=== PATIENT | male | born 1950 | race Caucasian/White ===

== ENCOUNTER → 2017-12-20 | Outpatient (CLI) | payer OTHER, BC ==
[2017-12-20 17:31] LABS: BASO % 0.8 %; BASO ABS # 0.08 K/uL (0-0.2); EOS % 2.6 %; EOS ABS # 0.25 K/uL (0-0.5); HEMOGLOBIN 15.8 g/dL (14.0-18.0); IG# 0.01 K/uL (0.00-0.02); LYMPH % 45.9 %; MEAN CELL VOLUME 90.9 fL (80-100); MEAN CORPUSCULAR HEMOGLOBIN 31.9 pg (25-34); MEAN CORPUSCULAR HGB CONC 35.1 g/dl (32-36); MEAN PLATELET VOLUME 11.7 fL (7.4-10.4); MONO % 8.6 %; MONO ABS # 0.82 K/uL (0.11-0.59); NEUT ABS # 4.03 K/uL (1.4-6.5); PLATELET COUNT 326 K/uL (130-400); RED CELL DISTRIBUTION WIDTH CV 13.6 % (11.5-14.5); RED CELL DISTRIBUTION WIDTH SD 45.2 fL (36.4-46.3); WHITE BLOOD COUNT 9.59 K/uL (4.8-10.8)
[2017-12-20 18:23] LABS: GLUCOSE 98 mg/dl (70-99)
[2017-12-20 18:24] LABS: ALBUMIN 3.6 gm/dl (3.4-5.0); ALKALINE PHOSPHATASE 87 U/L (45-117); ALT/SGPT 39 U/L (12-78); AST/SGOT 21 U/L (15-37); BLOOD UREA NITROGEN 13 mg/dl (7-18); CALCIUM 8.3 mg/dl (8.5-10.1); CARBON DIOXIDE 20 mmol/L (21-32); CHOLESTEROL 140 mg/dl (0-200); CREATININE 0.97 mg/dl (0.60-1.40); POTASSIUM 3.8 mmol/L (3.5-5.1); SODIUM 136 mmol/L (136-145); TOTAL PROTEIN 7.1 gm/dl (6.4-8.2)
[2017-12-21 06:28] LABS: HEMOGLOBIN A1C 5.7 % (4.5-5.6)
== END | disposition home or self-care (01) ==
LOC: C.LABPVFM 16:12
PROVIDERS: ATTEND Family Medicine
DX: E78.5 Hyperlipidemia, unspecified (principal); J30.9 Allergic rhinitis, unspecified; I47.1 Supraventricular tachycardia; R73.9 Hyperglycemia, unspecified

== ENCOUNTER 2021-09-11 19:58 | Inpatient (IN) ==
[2021-09-11] MEDS ORDERED: SODIUM CHLORIDE 0.9% 500 ML IV STA (20:21)
--- NOTE | 2021-09-11 20:28 | Emergency Department Note ---
Impression & Plan Hemoptysis, Small cell lung cancer, Pneumonia ED Provider Note NAME: ELINA WATERS AGE: 70 SEX: M : 1950 ARRIVES VIA: Ambulance INFORMANT: Patient, ED PROVIDER(S): Charlie Marte MD Chief Complaint: Coughing up blood HPI: Patient presents due to concern for coughing up blood which she states began abruptly after dinner. Patient states he has had some scant blood-tinged sputum in the past but this seem more eric in nature. The patient does take Xarelto for a known history of A. fib. The patient denies any shortness of breath. The patient does relate that he did have some chest discomfort but p rimarily just with coughing. The patient does not want anything for pain at this time. Patient denies any fevers or chills or abdominal pain. Patient Nuys any vomiting. Patient denies any alcohol use. The patient does use tobacco. Patient denies any leg swelling. Patient states he has had a prior bronchoscopy with Dr. Todd. Patient states he has not had any chemo or radiation or surgical therapy yet. The patient is currently undergoing consultation. ROS: See HPI for pertinent positives and negatives. A total of 10 systems were reviewed and otherwise negative. Past medical history: See below Surgical history: See below Social history: See below Physical Exam: GENERAL: NAD, wearing glasses, wearing a mask, non-toxic. EYE EXAM: Normal conjunctiva. PERRL, no anisocoria and EOM's grossly intact w/o pain. NECK: Supple, no nuchal rigidity, no adenopathy, non-tender. No signs of meningismus. LUNGS: Clear to auscultation. Normal chest wall mechanics. HEART: NSR, no MRG. ABDOMEN: Abdomen soft, non-tender, normo-active bowel sounds, no masses, no rebound or guarding. BACK: No CVA TTP. SKIN: No rashes and no bruising. UPPER EXTREMITIES: Upper extremities are grossly normal. LOWER EXTREMITIES: Grossly normal, no edema. NEURO EXAM: A&O x3, cranial nerves II-XII grossly intact, normal speech, moves all 4 extremities on command w/o issue. Differential diagnoses: Lung cancer, alveolar hemorrhage, bronchitis, reactive airway disease, pneumonia, pneumothorax, COPD, CHF, infections, cardiac ischemia, pulmonary embolism, musculoskeletal, gastrointestinal, as well as other pathologies. Course: Patient was seen and evaluated the bedside. Full history physical exam was pe rformed. EKG interpreted by me Normal sinus rhythm, rate of 92, normal intervals, normal axis, no ST changes or T WI. Imaging Studies: See Below Cardiac monitoring: An order was placed for continuous cardiac monitoring. The monitor shows a rate of 77 with sinus rhythm. MDM: Patient was seen due to concern for eric mopped assist and a known history of small cell carcinoma but without any current treatment. The patient did have bloody sputum within an emesis bag. The patient does take Xarelto for a known history of A. fib. Patient did have bladder completed. Patient also did have a CT angio of the chest. Patient has a white count of 12 with a normal H&H and platelet count. The ivone ent's kidney function is unremarkable with mild hyponatremia. COVID-negative. Type and screen was also ordered. CT angiography was discussed and reviewed with the on-call sales account representative Dr. Chin. He suggested antitussives and if his symptoms were to worsen could consider Kcentra as well as nebulized TXA. He also recommended hematology oncology to see the patient as well. Patient was admitted to the internal medicine service by Dr. Greene. I did order blood cultures Pan Mab as the patient did have a fever 37 9. Patient was also ordered Zosyn. Past Med/Surg History Medical History Allergic rhinitis Arthritis COPD with emphysema Hyperlipemia Paroxysmal atrial fibrillation Perirectal abscess PSVT (paroxysmal supraventricular tachycardia) Skin cancer REMOVED FROM LEFT HAND Small cell lung cancer Surgical History H/O knee surgery LEFT History of colonoscopy History of tooth extraction Hx of tonsillectomy S/P radiofrequency ablation operation for arrhythmia "UNSUCCESSFUL" 10/01/2017 >FOLLOWS WITH [facility] Family History Father Diabetes Cardiac disorder Myocardial infarction Lung cancer Hypertension Mother Ovarian cancer Dementia Grandmother (Paternal) Diabetes Grandfather (Paternal) Diabetes Denies family history of Prostate cancer Breast cancer Colorectal cancer Social History Smoking Status: Current every day smoker Tobacco Type: Cigarettes packs per day: 1; Cigarettes Per Day: 5-6; Second Hand Exposure: No; Hx Alcohol Use: No Hx Substance Use: No Preferred Language: Croatian Communication Ability: Effective Senior Supply Chain Analyst Required: No Beliefs That Will Affect Care: None marital status: Current Living Situation: Alone 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 Feels Safe at Home: Yes caffeine: Yes Dental Care, Regularly: No Physical Activity Frequency: 1-2 Times per Week Seatbelt Use: sometimes Sunscreen Use: Yes Assistive Devices: None Allergies Allergies Allergy/AdvReac Type Severity Reaction Status Date / Time No Known Allergies Allergy Verified 09/11/21 21:31 Home Meds Home Medications Medication Instructions Recorded Confirmed multivitamin 1 tab PO QAM 10/02/19 09/11/21 rivaroxaban 20 mg tablet (Xarelto) 20 mg PO QDD 08/19/21 09/11/21 metoprolol tartrate 100 mg tablet 100 mg PO QPM 09/11/21 09/11/21 metoprolol tartrate 100 mg tablet 150 mg PO QAM 09/11/21 09/11/21 Previous Rx's Medication Instructions Recorded aspirin 81 mg tablet,delayed 81 mg PO DAILY #30 tab 05/25/19 release pravastatin 40 mg tablet 40 mg PO QPM #90 tab 04/12/21 flecainide 100 mg tablet 100 mg PO Q12H #180 tab 07/19/21 Flutter Valve #1 ea 09/08/21 albuterol sulfate 90 mcg/actuation 2 puff INHALATION Q6H PRN #18 g 09/08/21 aerosol inhaler dextromethorphan-guaifenesin 30 1 tab PO Q12H PRN #60 tab 09/08/21 mg-600 mg tablet extended hr (Mucinex DM) fluticasone propionate 50 1 spray INTRANASAL DAILY #9.9 g 09/08/21 mcg/actuation nasal spray,suspension (Allergy Relief (fluticasone)) umeclidinium 62.5 mcg-vilanterol 1 inh INHALATION DAILY #60 ea 09/08/21 25 mcg/actuation powdr for inhalation (Anoro Ellipta) Results & Data (ED) Vital Signs Vital Signs - 24 hr 09/11/21 20:17 09/11/21 20:50 09/11/21 21:00 Temperature 37.9 C H Temperature Source Oral Pulse Rate 92 H 87 Pulse Rate [Apical] 95 H 89 Pulse Rate from SpO2 Sensor Respiratory Rate 24 24 22 Blood Pressure 107/70 104/63 Blood Pressure [Right Arm] 107/70 111/63 Blood Pressure Mean 82 76 Blood Pressure Mean [Right Arm] 82 79 Blood Pressure Position [Right Arm] Semi-fowlers Semi-fowlers Pulse Oximetry 97 96 95 Oxygen Delivery Method Room Air Room Air Room Air Sepsis Recent Fever Within 48 Hours Yes Sepsis New/Unexplained Change in Mental Status No Sepsis Action Taken by Nursing No Action Required 09/11/21 21:50 09/11/21 22:13 09/11/21 22:30 Temperature Temperature Source Pulse Rate 87 122 H Pulse Rate [Apical] 78 Pulse Rate from SpO2 Sensor 121 H Respiratory Rate 18 23 20 Blood Pressure 118/63 120/72 Blood Pressure [Right Arm] 114/54 L Blood Pressure Mean 81 88 Blood Pressure Mean [Right Arm] 74 Blood Pressure Position [Right Arm] Semi-fowlers Pulse Oximetry 95 95 97 Oxygen Delivery Method Room Air Room Air Room Air Sepsis Recent Fever Within 48 Hours Sepsis New/Unexplained Change in Mental Status Sepsis Action Taken by [facility] Medications Current Medication List: was personally reviewed by me Laboratory Data Attestation: I reviewed the patient's lab results. Result diagrams: 09/12/21 06:54 09/12/21 06:54 Lab Results 09/11/21 09/11/21 09/11/21 Range/Units 20:18 20:18 20:18 WBC 12.52 H (4.8-10.8) K/uL RBC 4.62 L (4.7-6.1) M/uL Hgb 14.9 (14.0-18.0) g/dL Hct 42.1 (42-52) % MCV 91.1 (80-100) fL MCH 32.3 (25-34) pg MCHC 35.4 (32-36) g/dL RDW Std Deviation 43.2 (36.4-46.3) fL RDW Coeff of Gagandeep 12.9 (11.5-14.5) % Plt Count 347 (130-400) K/uL MPV 10.6 H (7.4-10.4) fL Immature Gran % (Auto) 0.2 % Neut % (Auto) 65.3 % Lymph % (Auto) 25.3 % [place] % (Auto) 7.8 % Eos % (Auto) 1.2 % Baso % (Auto) 0.2 % Neut # (Auto) 8.17 H (1.4-6.5) K/uL Lymph # (Auto) 3.17 (1.2-3.4) K/uL [place] # (Auto) 0.98 H (0.11-0.59) K/uL Eos # (Auto) 0.15 (0-0.5) K/uL Baso # (Auto) 0.02 (0-0.2) K/uL Immature Gran # (Auto) 0.03 H (0.00-0.02) K/uL PT 11.7 (9.0-12.0) Seconds INR 1.1 (0.9-1.1) APTT 30.0 (21.0-31.0) Seconds PTT Ratio 1.1 Sodium 134 L (136-145) mmol/L Potassium 3.8 (3.5-5.1) mmol/L Chloride 102 (98-107) mmol/L Carbon Dioxide 23 (21-32) mmol/L Anion Gap 9 (3-11) BUN 17 (6-23) mg/dl Creatinine 0.89 (0.6-1.4) mg/dl Est Cr Clr Drug Dosing 83.4 ml/min Est GFR ( Amer) 101.1 ml/min Est GFR (Non-Af Amer) 87.2 ml/min BUN/Creatinine Ratio 19.1 (10-20) Glucose 138 H (70-99(Fasting)) mg/dl Calcium 9.0 (8.5-10.1) mg/dl Magnesium 1.9 (1.7-2.4) mg/dl Total Bilirubin 0.3 (0.2-1.0) mg/dl AST 18 (13-39) U/L ALT 20 (7-52) U/L Alkaline Phosphatase 89 (34-104) U/L Total Protein 6.5 (6.0-8.3) gm/dl Albumin 3.7 (3.4-5.0) gm/dl Globulin 2.8 (2.5-4.0) gm/dl Albumin/Globulin Ratio 1.3 (0.9-2) Procalcitonin (0-0.5) ng/ml SARS-CoV-2, RNA, NAAT (NEGATIVE) Blood Type Antibody Screen 09/11/21 09/11/21 09/11/21 Range/Units 20:20 20:47 22:41 WBC (4.8-10.8) K/uL RBC (4.7-6.1) M/uL Hgb (14.0-18.0) g/dL Hct (42-52) % MCV (80-100) fL MCH (25-34) pg MCHC (32-36) g/dL RDW Std Deviation (36.4-46.3) fL RDW Coeff of Gagandeep (11.5-14.5) % Plt Count (130-400) K/uL MPV (7.4-10.4) fL Immature Gran % (Auto) % Neut % (Auto) % Lymph % (Auto) % [place] % (Auto) % Eos % (Auto) % Baso % (Auto) % Neut # (Auto) (1.4-6.5) K/uL Lymph # (Auto) (1.2-3.4) K/uL [place] # (Auto) (0.11-0.59) K/uL Eos # (Auto) (0-0.5) K/uL Baso # (Auto) (0-0.2) K/uL Immature Gran # (Auto) (0.00-0.02) K/uL PT (9.0-12.0) Seconds INR (0.9-1.1) APTT (21.0-31.0) Seconds PTT Ratio Sodium (136-145) mmol/L Potassium (3.5-5.1) mmol/L Chloride (98-107) mmol/L Carbon Dioxide (21-32) mmol/L Anion Gap (3-11) BUN (6-23) mg/dl Creatinine (0.6-1.4) mg/dl Est Cr Clr Drug Dosing ml/min Est GFR ( Amer) ml/min Est GFR (Non-Af Amer) ml/min BUN/Creatinine Ratio (10-20) Glucose (70-99(Fasting)) mg/dl Calcium (8.5-10.1) mg/dl Magnesium (1.7-2.4) mg/dl Total Bilirubin (0.2-1.0) mg/dl AST (13-39) U/L ALT (7-52) U/L Alkaline Phosphatase (34-104) U/L Total Protein (6.0-8.3) gm/dl Albumin (3.4-5.0) gm/dl Globulin (2.5-4.0) gm/dl Albumin/Globulin Ratio (0.9-2) Procalcitonin 0.12 (0-0.5) ng/ml SARS-CoV-2, RNA, NAAT NEGATIVE (NEGATIVE) Blood Type A Negative Antibody Screen NEGATIVE Administered Medications Benzonatate (Benzonatate 100 Mg Capsule) 100 mg PO TID [facility] Stop: 10/12/21 08:59 Last Admin: 09/12/21 13:11 Dose: 100 mg Documented by: [id number] Admin: 09/12/21 08:18 Dose: 100 mg Documented by: [id number] Flecainide Acetate (Flecainide Acetate 100 Mg Tablet) 100 mg PO Q12H [facility] Stop: 10/12/21 00:29 Last Admin: 09/12/21 11:08 Dose: 100 mg Documented by: [id number] Admin: 09/12/21 00:58 Dose: 100 mg Documented by: [id number] Fluticasone Propionate (Fluticasone Propionate Na Spr 16 Gm Btl) 1 sprays NA DAILY [facility] Stop: 10/12/21 08:59 Last Admin: 09/12/21 08:16 Dose: 1 sprays Documented by: [id number] Guaifenesin/Codeine Phosphate (Guaifenesin/Codeine 100mg/10mg 5ml Udc) 5 ml PO Q6 [facility] Stop: 10/12/21 11:14 Last Admin: 09/12/21 17:42 Dose: 5 ml Documented by: [id number] Admin: 09/12/21 11:50 Dose: 5 ml Documented by: [id number] Piperacillin Sod/Tazobactam (Sod 3.375 gm/ Dextrose) 115 mls @ 28.75 mls/hr IV Q8H [facility]; Protocol Stop: 09/19/21 03:59 Last Infusion: 09/12/21 15:20 Dose: 0 mls/hr Documented by: [id number] Admin: 09/12/21 11:07 Dose: 28.8 mls/hr Documented by: [id number] Infusion: 09/12/21 08:33 Dose: 0 mls/hr Documented by: [id number] Admin: 09/12/21 04:32 Dose: 28.8 mls/hr Documented by: [id number] Metoprolol Tartrate (Metoprolol Tartrate 50 Mg Tab) 150 mg PO QAM [facility] Stop: 10/12/21 08:59 Last Admin: 09/12/21 08:21 Dose: 150 mg Documented by: [id number] Metoprolol Tartrate (Metoprolol Tartrate 100 Mg Tab) 100 mg PO QPM [facility] Stop: 10/12/21 20:59 Last Admin: 09/12/21 00:59 Dose: 100 mg Documented by: [id number] Pravastatin Sodium (Pravastatin Sod 40 Mg Tab) 40 mg PO QPM [facility] Stop: 10/12/21 20:59 Last Admin: 09/12/21 00:59 Dose: 40 mg Documented by: [id number] Umeclidinium/Vilanterol (Umeclidinium/Vilanterol 62.5/25mcg 7 Puffs/Inhaler) 1 puffs INH DAILY [facility] Stop: 10/12/21 08:59 Last Admin: 09/12/21 08:16 Dose: 1 puffs Documented by: [id number] Discontinued Medications Guaifenesin (Guaifenesin 600 Mg Tabcr) 1 mg PO Q12H PRN PRN Reason: cough Last Admin: 09/12/21 08:17 Dose: 1 mg Documented by: [id number] Sodium Chloride (Nss) 500 mls @ 999 mls/hr IV .Q31M ST[facility] Stop: 09/11/21 20:51 Last Infusion: 09/11/21 21:51 Dose: 0 mls/hr Documented by: [id number] Admin: 09/11/21 20:47 Dose: 999 mls/hr Documented by: [id number] Sodium Chloride (Nss 1000ml) 1,000 mls @ 999 mls/hr IV .Q1H1M ONE Stop: 09/11/21 22:47 Last Infusion: 09/11/21 23:12 Dose: 0 mls/hr Documented by: [id number] Admin: 09/11/21 22:01 Dose: 999 mls/hr Documented by: [id number] Acetaminophen (Ofirmev) 1,000 mg in 100 mls @ 400 mls/hr IV NOW STA Stop: 09/11/21 22:01 Last Infusion: 09/11/21 22:30 Dose: 0 mls/hr Documented by: [id number] Admin: 09/11/21 22:00 Dose: 400 mls/hr Documented by: [id number] Sodium Chloride (Nss) 500 mls @ 999 mls/hr IV .Q31M ONE Stop: 09/11/21 22:17 Last Infusion: 09/12/21 00:09 Dose: 0 mls/hr Documented by: [id number] Admin: 09/11/21 23:16 Dose: 999 mls/hr Documented by: [id number] Piperacillin Sod/Tazobactam Sod (Zosyn) 4.5 gm in 120 mls @ 240 mls/hr IV NOW ONE Stop: 09/11/21 22:39 Last Infusion: 09/11/21 23:12 Dose: 0 mls/hr Documented by: [id number] Admin: 09/11/21 22:29 Dose: 240 mls/hr Documented by: [id number] Ioversol (Optiray 320 100ml) 120 ml IV ONCE ONE Stop: 09/11/21 21:24 Last Admin: 09/11/21 21:23 Dose: 120 ml Documented by: [id number] Imaging Data Radiologist's Impression: Chest CTA 09/11/21 20:21 CT ANGIOGRAPHY OF THE CHEST, PULMONARY EMBOLUS PROTOCOL CLINICAL HISTORY: hemoptysis, history of lung cancer. COMPARISON STUDY: Chest CT August 19, 2021. PET/CT September 04, 2021. TECHNIQUE: Following IV administration of 120 mL of Optiray, helical axial images of the chest were obtained utilizing the pulmonary embolus protocol. Maximal intensity projections and sagittal and coronal reformats were viewed on an independent 3D workstation. IV contrast was administered without complication. Automated exposure control was utilized for the study. A dose lowering technique was utilized adhering to the principles of ALARA. CT DOSE: 418.46 mGy.cm FINDINGS: Note is again made of an infiltrative left perihilar/suprahilar mass which measures 6.7 x 6.3 cm. This mass results in marked narrowing of the distal left pulmonary artery as well as the left upper and left lower lobe pulmonary arteries. These vessels are markedly attenuated. There is nonopacification of multiple segmental pulmonary arteries within the left lung, most notably within within the left lower lobe. This is likely due to upstream narrowing/occlusion. Emboli would be difficult to completely exclude. No right-sided pulmonary emboli are present. The mass also results in occlusion of left upper lobe bronchus as well as lingular segmental bronchi. Left upper lobe segmental bronchi are opacified. A small left pleural effusion has developed. Interlobular septal thickening within the left upper lobe is noted. The size the heart is normal. There is no pericardial effusion. No thoracic aortic dissection is present. Mild left lower lobe alveolar opacities are noted. Moderate left upper lobe airspace opacity has increased. A 1.3 cm left upper lobe nodule on image 257 is similar t o prior PET/CT. Right lung is unremarkable. No suspicious lesions within the visualized bony thorax. Visualized portions of the upper abdomen are unremarkable. IMPRESSION: 1. 6.7 x 6.3 cm left hilar/suprahilar infiltrative mass consistent with primary lung malignancy. This mass results in narrowing of the left pulmonary artery and severe narrowing of the left upper lobe and lower lobe pulmonary arteries. Nonopacification of multiple segmental pulmonary arterial branches within the left lung is likely due to vessel stenosis/occlusion with mixing artifact. Although less likely, emboli could appear similar. No right-sided pulmonary emboli. 2. Occlusion of the left upper lobe bronchus. Increase in left upper lobe a irspace opacity which favors post obstructive pneumonia. Although less likely, pulmonary infarct could appear similar. Mild left lower lobe airspace opacities which favor an infectious process. 3. Interval development of a small left pleural effusion. 4. No change in a 1.3 cm left upper lobe nodule which favors a metastasis. ACT 112: Negative or not required by law. Electronically signed by: Stan Link M.D. 09/12/2021 9:19 AM Discharge Plan Visit Data Chief Complaint: Shortness of Breath/Dyspnea Stated Complaint: Coughing Blood ED Provider: Charlie Marte Discharge Problem: Hemoptysis, Small cell lung cancer, Pneumonia Patient Disposition: Admitted As Inpatient Discharge Instructions Interventions: ED Discharge Assessment Last Done: 09/12/21 00:08
[2021-09-11 20:36] LABS: Basophils # (auto) 0.02 K/uL (0-0.2); Basophils % (auto) 0.2 %; Eosinophils # (auto) 0.15 K/uL (0-0.5); Eosinophils % (auto) 1.2 %; Hematocrit (blood only) 42.1 % (42-52); Hemoglobin 14.9 g/dL (14.0-18.0); Immature Granulocytes # (auto) 0.03 K/uL (0.00-0.02); Immature Granulocytes % (auto) 0.2 %; Lymphocytes # (auto) 3.17 K/uL (1.2-3.4); Lymphocytes % (auto) 25.3 %; Mean Corpuscular Hemoglobin 32.3 pg (25-34); Mean Corpuscular Hgb Conc 35.4 g/dL (32-36); Mean Corpuscular Volume 91.1 fL (80-100); Mean Platelet Volume 10.6 fL (7.4-10.4); Monocytes # (auto) 0.98 K/uL (0.11-0.59); Monocytes % (auto) 7.8 %; Neutrophils # (auto) 8.17 K/uL (1.4-6.5); Neutrophils % (auto) 65.3 %; Platelet Count 347 K/uL (130-400); RDW Coefficient of Variation 12.9 % (11.5-14.5); RDW Standard Deviation 43.2 fL (36.4-46.3); Red Blood Count 4.62 M/uL (4.7-6.1); White Blood Count 12.52 K/uL (4.8-10.8)
[2021-09-11 20:51] LABS: INR 1.1 (0.9-1.1); Partial Thromboplastin Ratio 1.1; Prothrombin Time 11.7 Seconds (9.0-12.0)
[2021-09-11 20:59] LABS: Albumin Globulin Ratio 1.3 (0.9-2); Albumin Level 3.7 gm/dl (3.4-5.0); BUN Creatinine Ratio 19.1 (10-20); Bilirubin,Total 0.3 mg/dl (0.2-1.0); Creatinine Clr Calc Pharmacy 83.4 ml/min; Est GFR (African American) 101.1 ml/min; Est GFR (Non-African American) 87.2 ml/min; Globulin 2.8 gm/dl (2.5-4.0); Magnesium 1.9 mg/dl (1.7-2.4); Potassium 3.8 mmol/L (3.5-5.1); Total Protein 6.5 gm/dl (6.0-8.3)
[2021-09-11] MEDS ORDERED: OPTIRAY 320 100ml IV ONE (21:23)
[2021-09-11] MEDS ORDERED: SODIUM CHLORIDE 0.9% 1000ML 1,000 ML IV ONE (21:47)
[2021-09-11] MEDS ORDERED: ACETAMINOPHEN 1,000 MG/100 ML VIAL IV STA (21:47)
[2021-09-11] MEDS ORDERED: SODIUM CHLORIDE 0.9% 500 ML IV ONE (21:47)
[2021-09-11] MEDS ORDERED: PIPERACILLIN/TAZOBACTAM 4.5 GM/120 ML BAG IV ONE (22:10)
[2021-09-11] MEDS ORDERED: PIPERACILL/TAZOBAC CONSULT ACTIVE PRN (22:10)
--- NOTE | 2021-09-11 22:46 | History & Physical Report ---
Date of Service September 11, 2021 Assessment & Plan (1) Hemoptysis: Plan: 70yo male with history of metastatic small cell carcinoma of the lung presenting with hemoptysis. Ddx to include patient's known malignancy, vascular invasion, PE, infection/post-obstructive PNA. Presently with minimal cough. No active hemoptysis witnessed since arrival to ER. Adequate oxygenation on room air. 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 He is scheduled to see Radiation Oncology (Dr. Moore) on 09/27/21 and Oncology (Dr. Miller) on 09/19/21. -Oncology consultation appreciated (3) Paroxysmal atrial fibrillation: Plan: Rate controlled -Continue Flecainide 100mg po BID -Continue Metoprolol -Hold Xarelto in setting of bleed (4) COPD with emphysema: Plan: Adequate oxygenation on room air -Continue Anoro daily, Albuterol PRN -Continue Mucinex DM -Continue Flonase (5) Hyperlipemia: Plan: Chronic -Continue Pravastatin Plan: F/E/N - Heplock. Electrolytes WNL. NPO for now Ppx - SCDs Code - DNR/DNI per discussion with patient Dispo - Admit to medical with telemetry History of Present Illness Chief Complaint: hemoptysis Primary Care Provider: Jessica Gomes MD Jah Avila is a 70yo male with history of COPD, paroxysmal atrial fibrillation on Xarelto anticoagulation and HLP. Patient was seen in the ER on 08/19/21 with complaint of fever. CXR and CT Chest obtained during that visit revealed a 6 x 5.9 cm left hilar mass resulting in severe narrowing/occlusion of the JACKIE bronchi as well as mass effect along the central left pulmonary arteries. Findings suspicious for malignancy. Patient had an MRI of the brain obtained on 08/31/21 which revealed a 3mm enhancing nodule within the left cerebellar hemisphere highly suspicious for a metastatic focus as well as a 4mm nonenhancing nodule in the left lateral ventricle. He was seen by Pulmonary on 09/01/21 ad had EBUS with biopsy performed (results pasted below) which revealed small cell carcinoma of the lung. Patient had a PET Scan performed on 09/04/21 which revealed possible adrenal involvement as well. He was seen again by Pulmonary on 09/08/21 and was started on Anoro, PRN Albuterol as well as Mucinex-DM and Flutter valve for his underlying COPD. Patient presents with complaint of hemoptysis. He has a cough productive for clear sputum with occasional blood tinge. This evening he began to cough more s everely and reports coughing up copious amounts of bright red blood. He thinks he may have coughed up approximately 1 cup of blood. He felt more short of breath than usual and had some chest pain associated with the cough as well. Patient reports poor appetite as well as 10-15# weight loss over the last several weeks. He also reports occasional dizziness and ataxic gait. He denies fever, chills, abdominal pain, nausea, vomiting, diarrhea or constipation. No additional complaints at this time. ER Course: Tylenol, Zosyn, NSS Allergies Allergy/AdvReac Type Severity Reaction Status Date / Time No Known Allergies Allergy Verified 09/11/21 21:31 Home Medications Medication Instructions Recorded Confirmed Type aspirin 81 mg tablet,delayed 81 mg PO DAILY #30 tab 05/25/19 09/11/21 Rx release multivitamin 1 tab PO QAM 10/02/19 09/11/21 History pravastatin 40 mg tablet 40 mg PO QPM #90 tab 04/12/21 09/11/21 Rx flecainide 100 mg tablet 100 mg PO Q12H #180 tab 07/19/21 09/11/21 Rx rivaroxaban 20 mg tablet (Xarelto) 20 mg PO QDD 08/19/21 09/11/21 History Flutter Valve #1 ea 09/08/21 09/08/21 Rx albuterol sulfate 90 mcg/actuation 2 puff INHALATION Q6H PRN #18 g 09/08/21 09/11/21 Rx aerosol inhaler dextromethorphan-guaifenesin 30 1 tab PO Q12H PRN #60 tab 05/13/22 05/16/22 Rx mg-600 mg tablet extended [id number] hr (Mucinex DM) fluticasone propionate 50 1 spray INTRANASAL DAILY #9.9 g 09/08/21 09/11/21 Rx mcg/actuation nasal spray,suspension (Allergy Relief (fluticasone)) umeclidinium 62.5 mcg-vilanterol 1 inh INHALATION DAILY #60 ea 09/08/21 09/11/21 Rx 25 mcg/actuation powdr for inhalation (Anoro Ellipta) metoprolol tartrate 100 mg tablet 100 mg PO QPM 09/11/21 09/11/21 History metoprolol tartrate 100 mg tablet 150 mg PO QAM 09/11/21 09/11/21 History Past Med/Surg History Medical History (Updated 09/11/21 @ 23:37 by Eva Greene DO) Allergic rhinitis Arthritis COPD with emphysema Hyperlipemia Paroxysmal atrial fibrillation Perirectal abscess PSVT (paroxysmal supraventricular tachycardia) Skin cancer REMOVED FROM LEFT HAND Small cell lung cancer Surgical History H/O knee surgery LEFT History of colonoscopy History of tooth extraction Hx of tonsillectomy S/P radiofrequency ablation operation for arrhythmia "UNSUCCESSFUL" 10/01/2017 >FOLLOWS WITH MADISON FERNANDES Family History Father Diabetes Cardiac disorder Myocardial infarction Lung cancer Hypertension Mother Ovarian cancer Dementia Grandmother (Paternal) Diabetes Grandfather (Paternal) Diabetes Denies family history of Prostate cancer Breast cancer Colorectal cancer Social History Smoking Status: Current every day smoker Tobacco Type: Cigarettes packs per day: 1; Cigarettes Per Day: 20 CIG DAILY; Second Hand Exposure: No; Hx Alcohol Use: No Hx Substance Use: No Preferred Language: Irish Wrap Checker Required: No Beliefs That Will Affect Care: None marital status: Current Living Situation: Alone 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 Feels Safe at Home: Yes caffeine: Yes Dental Care, Regularly: No Physical Activity Frequency: 1-2 Times per Week Seatbelt Use: sometimes Sunscreen Use: Yes Assistive Devices: None Review of Systems Review of Systems: All systems reviewed & are unremarkable except as noted in HPI & below Physical Exam Physical Exam: General: patient resting comfortably, NAD, non-toxic in appearance, AA&O x 4 Skin: warm, dry, intact, no rashes or lesions HEENT: NC/AT, PERRL, EOMI, anicteric sclera, conjunctiva without injection, external ear normal to inspection and nontender, nares patent, moist mucus membranes, dentition intact, no oropharyngeal lesions, neck supple, trachea midline, no LAD, no thyromegaly, no JVD Heart: +S1/S2, irregularly irregular, no m/r/g Lungs: equal air entry bilaterally, no rales/rhonchi/wheezes Abd: +BS, soft, NT/ND, no masses/organomegaly/ascites Ext: warm, 2+ pulses in UE/LE bilaterally, no clubbing/cyanosis or edema Neuro: nonfocal, patient AA&O x 4, speech intact, no facial droop, moving all extremities on command with equal strength 5/5 Results & Data Results & Data ([facility]) Vital Signs (Past 12 Hours) Vital Signs Temp Pulse Pulse Resp BP BP Pulse Ox 09/11/21 22:13 78 23 114/54 L 95 09/11/21 21:50 87 18 118/63 95 09/11/21 21:00 87 22 104/63 95 09/11/21 20:50 89 24 111/63 96 09/11/21 20:17 37.9 C H 92 H 95 H 24 107/70 107/70 97 Laboratory Results Laboratory Results WBC 12.52 K/uL (4.8-10.8) H 09/11/21 20:18 RBC 4.62 M/uL (4.7-6.1) L 09/11/21 20:18 Hgb 14.9 g/dL (14.0-18.0) 09/11/21 20:18 Hct 42.1 % (42-52) 09/11/21 20:18 MCV 91.1 fL (80-100) 09/11/21 20:18 MCH 32.3 pg (25-34) 09/11/21 20:18 MCHC 35.4 g/dL (32-36) 09/11/21 20:18 RDW Std Deviation 43.2 fL (36.4-46.3) 09/11/21 20:18 RDW Coeff of Gagandeep 12.9 % (11.5-14.5) 09/11/21 20:18 Plt Count 347 K/uL (130-400) 09/11/21 20:18 MPV 10.6 fL (7.4-10.4) H 09/11/21 20:18 Immature Gran % (Auto) 0.2 % 09/11/21 20:18 Neut % (Auto) 65.3 % 09/11/21 20:18 Lymph % (Auto) 25.3 % 09/11/21 20:18 [place] % (Auto) 7.8 % 09/11/21 20:18 Eos % (Auto) 1.2 % 09/11/21 20:18 Baso % (Auto) 0.2 % 09/11/21 20:18 Neut # (Auto) 8.17 K/uL (1.4-6.5) H 09/11/21 20:18 Lymph # (Auto) 3.17 K/uL (1.2-3.4) 09/11/21 20:18 [place] # (Auto) 0.98 K/uL (0.11-0.59) H 09/11/21 20:18 Eos # (Auto) 0.15 K/uL (0-0.5) 09/11/21 20:18 Baso # (Auto) 0.02 K/uL (0-0.2) 09/11/21 20:18 Immature Gran # (Auto) 0.03 K/uL (0.00-0.02) H 09/11/21 20:18 PT 11.7 Seconds (9.0-12.0) 09/11/21 20:18 INR 1.1 (0.9-1.1) 09/11/21 20:18 APTT 30.0 Seconds (21.0-31.0) 09/11/21 20:18 PTT Ratio 1.1 09/11/21 20:18 Sodium 134 mmol/L (136-145) L 09/11/21 20:18 Potassium 3.8 mmol/L (3.5-5.1) 09/11/21 20:18 Chloride 102 mmol/L (98-107) 09/11/21 20:18 Carbon Dioxide 23 mmol/L (21-32) 09/11/21 20:18 Anion Gap 9 (3-11) 09/11/21 20:18 BUN 17 mg/dl (6-23) 09/11/21 20:18 Creatinine 0.89 mg/dl (0.6-1.4) 09/11/21 20:18 Est Cr Clr Drug Dosing 83.4 ml/min 09/11/21 20:18 Est GFR ( Amer) 101.1 ml/min 09/11/21 20:18 Est GFR (Non-Af Amer) 87.2 ml/min 09/11/21 20:18 BUN/Creatinine Ratio 19.1 (10-20) 09/11/21 20:18 Glucose 138 mg/dl (70-99(Fasting)) H 09/11/21 20:18 Calcium 9.0 mg/dl (8.5-10.1) 09/11/21 20:18 Magnesium 1.9 mg/dl (1.7-2.4) 09/11/21 20:18 Total Bilirubin 0.3 mg/dl (0.2-1.0) 09/11/21 20:18 AST 18 U/L (13-39) 09/11/21 20:18 ALT 20 U/L (7-52) 09/11/21 20:18 Alkaline Phosphatase 89 U/L (34-104) 09/11/21 20:18 Total Protein 6.5 gm/dl (6.0-8.3) 09/11/21 20:18 Albumin 3.7 gm/dl (3.4-5.0) 09/11/21 20:18 Globulin 2.8 gm/dl (2.5-4.0) 09/11/21 20:18 Albumin/Globulin Ratio 1.3 (0.9-2) 09/11/21 20:18 SARS-CoV-2, RNA, NAAT NEGATIVE (NEGATIVE) 09/11/21 20:20 Blood Type A Negative 09/11/21 20:47 Antibody Screen NEGATIVE 09/11/21 20:47 Diagnostic Findings Procedure Note: Bronchoscopy 09/01/21 Procedure PREOPERATIVE DIAGNOSIS: Mediastinal mass POSTOPERATIVE DIAGNOSIS: Left upper lobe endobronchial mediastinal mass. Probable small cell lung cancer PROCEDURE PERFORMED: Flexible fiberoptic bronchoscopy with bronchoalveolar lavage, transbronchial biopsies, endobronchial biopsies and EBUS COMPLICATIONS: None. INDICATION: Rule out malignancy PROCEDURE: After obtaining an informed consent, the patient was brought to the Bronchoscopy Suite. The patient had appropriate oxygen, blood pressure, heart rate, and respiratory rate monitoring applied and monitored continuously throughout the procedure. Supplemental oxygen via nasal cannula as per nursing records was applied to the nasopharynx with adequate saturations achieved. Topical anesthesia with nebulized 1% lidocaine was achieved. Subsequent to this, the patient was premedicated with 8 mg of midazolam and 175 mcg of fentanyl. Upper Airway: The oropharynx and larynx were well visualized and showed normal mucosa. There was normal vocal cord motion without masses or lesions. Additional topical anesthesia with 1% lidocaine was applied to the trachea and malia. The trachea appeared normal and sharp bronchoscope was then advanced through the malia, which was sharp. The scope was then advanced into the right main stem and each segment, subsegement in the right upper lobe, right middle lobe and right lower lobe were visualized. There were minimal amount of clear secretion which were suctioned out. There were no other findings including evidence of mass, anatomic distortions, or hemorrhage. The bronchoscope was subsequently withdrawn and advanced into the left mainstem.Mucosa of the left main bronchus seemed edematous with gradual narrowing of the left upper lobe appreciated. There was significant edema as well as ulceration at the entrance of the left upper lobe. It was difficult to pass the scope distally in the left upper lobe. Left lower lobe segment and subsegment were visualized. There were minimal amount of clear secretion which was suctioned out The bronchoscope was then wedged in the left upper lobe and bronchoalveolar lavage samples were obtained. 80 ml of saline was instilled and 30 ml of fluid was aspirated back.The bronchoscope was withdrawn and the area was suctioned clear. The bronchoscope was then re-advanced into the left upper lobe and multiple transbronchial biopsies were taken. Multiple endobronchial biopsies were also taken needed left main and uptake of the left upper lobe. Minimal hemorrhage was identified and suctioned clear without difficulty. Cold saline was utilized to achieve adequate hemostasis. The bronchoscope was then withdrawn to the mainstem. The area was suctioned clear. Flexible bronchoscope was withdrawn and EBUS was introduced Station 7, station 4R, station 4L, station 10 L were screened. None of the stations other than 10 L were deemed appropriate for biopsy Station 10 L seem to be encased around the mass with no clear demarcation 10 L/mass: 5 passes were made with multiple sweeps. DAMIEN probable small cell The patient tolerated the procedure well without evidence of desaturation or complications. Bronchoalveolar lavage samples were sent for cell count, Gram stain and bacter ial culture, AFB culture and smear, fungal culture and smear and cytology. Transbronchial biopsies were sent for and pathology. Biopsy results: JACKIE - small cell carcinoma Lymph node - Small cell carcinoma Code Status & VTE Plan VTE Prophylaxis Plan VTE Prophylaxis will be ordered: Yes PG Care Time/CCT Total # of Minutes Spent Total Time Spent with Patient: Total time spent is greater than 50% in coordination of care (as documented) at patient's floor/unit and/or counseling patient: Coding Level of Care Code 44439 Initial Inpt Care Lvl 3 Diagnoses Paroxysmal atrial fibrillation I48.0 COPD with emphysema J43.9 Small cell lung cancer C34.90 Hemoptysis R04.2 Hyperlipemia E78.5
[2021-09-12] MEDS ORDERED: PIPERACILL/TAZOBAC CONSULT ACTIVE PRN (00:08)
[2021-09-12] MEDS ORDERED: ALBUTEROL HFA 8 GM INHALER INH PRN (00:08)
[2021-09-12] MEDS ORDERED: ONDANSETRON INJ 2 MG/ML 2 ML VIAL IV PRN (00:08)
[2021-09-12] MEDS ORDERED: guaiFENesin 600 MG TABCR PO PRN (00:08)
[2021-09-12] MEDS: FLECAINIDE ACETATE 100 MG TABLET PO SCH ×3 (00:58→22:10)
[2021-09-12] MEDS: PRAVASTATIN SOD 40 MG TAB PO SCH ×2 (00:59→20:03)
[2021-09-12] MEDS: METOPROLOL TARTRATE 100 MG TAB PO SCH ×2 (00:59→20:04)
[2021-09-12] MEDS: PIPERACILLIN/TAZOBACTAM 3.375 GM in DEXTROSE 5% 100 ML IV SCH ×3 (04:32→19:51)
[2021-09-12 07:55] LABS: Basophils # (auto) 0.03 K/uL (0-0.2); Basophils % (auto) 0.3 %; Eosinophils # (auto) 0.15 K/uL (0-0.5); Eosinophils % (auto) 1.5 %; Hematocrit (blood only) 38.7 % (42-52); Hemoglobin 13.4 g/dL (14.0-18.0); Immature Granulocytes # (auto) 0.02 K/uL (0.00-0.02); Immature Granulocytes % (auto) 0.2 %; Lymphocytes # (auto) 2.47 K/uL (1.2-3.4); Lymphocytes % (auto) 24.1 %; Mean Corpuscular Hemoglobin 31.9 pg (25-34); Mean Corpuscular Hgb Conc 34.6 g/dL (32-36); Mean Corpuscular Volume 92.1 fL (80-100); Mean Platelet Volume 10.5 fL (7.4-10.4); Monocytes # (auto) 1.08 K/uL (0.11-0.59); Monocytes % (auto) 10.6 %; Neutrophils # (auto) 6.48 K/uL (1.4-6.5); Neutrophils % (auto) 63.3 %; Platelet Count 292 K/uL (130-400); RDW Coefficient of Variation 13.1 % (11.5-14.5); RDW Standard Deviation 44.1 fL (36.4-46.3); White Blood Count 10.23 K/uL (4.8-10.8)
--- NOTE | 2021-09-12 08:03 | Radiation OncologyConsultation ---
Date of Consultation September 12, 2021 Assessment & Plan (1) Small cell lung cancer in adult: Assessment: Mr. Avila is a 70-year-old gentleman who presents with newly diagnosed extensive stage small cell lung carcinoma. 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 The patient was scheduled to be seen by radiation oncology and medical oncology in the outpatient setting however he was admitted to the [facility] due to hemoptysis which has since improved. I am now seeing the patient in consultation to discuss the role of radiation therapy. Recommendations: 1. With respect to the brain metastasis, I have spoken with Dr. Miller. The patient has very limited disease at this point. I believe it is appropriate for the patient to proceed with observation from a radiation therapy standpoint and proceed with systemic chemotherapy. The patient should have restaging MRI of the brain with and without contrast to be completed after 1-2 cycles of chemotherapy. If the patient has no progression of disease but does have persistent disease, stereotactic radiosurgery can be considered. If the patient has progression of disease, the patient should be considered for whole brain r adiation therapy. 2. With respect to the thoracic disease, the patient will receive systemic chemotherapy. If the patient does have progression of disease involving the chest and is symptomatic, the patient can be considered for short course of palliative external beam radiation therapy. Plan: 1. No plan for radiation therapy at this time. 2. Medical oncology input appreciated. Plan for systemic chemotherapy. 3. Continue care as per primary hospital team. 4. Call us if any questions or concerns. History of Present Illness Attending Physician: Patricio Martin MD History of Present Illness 08/19/2021. CXR. IMPRESSION: Abnormal left suprahilar density measuring 2.3 cm. Follow-up contrast-enhanced chest CT is recommended to exclude the possibility of a mass or lymphadenopathy. 08/19/2021. CT Chest. IMPRESSION: 1. There is a 6.0 x 5.9 cm left hilar mass/lymphadenopathy resulting in severe narrowing/occlusion of the left upper lobe bronchi as well as significant mass effect along the central left pulmonary arteries. This is highly suspicious for a primary bronchogenic malignancy. Bronchoscopy recommended for further evaluation. 2. Interlobular septal thickening within the left upper lobe with a few irregular densities. This may be due to be due to the postobstructive change. Lymphangitic spread of tumor could also have a similar appearance. 3. There is a 12 mm irregular nodule within the left lung apex likely representing a metastatic focus. 4. Mild emphysema 08/31/2021. MRI Brain. IMPRESSION: 1. A 3 mm enhancing nodule within the left cerebellar hemisphere. This is highly suspicious for a metastatic focus. 2. There is a 4 mm nonenhancing nodule within the left lateral ventricle. This is indeterminate but bears watching on future examinations. 09/01/2021. Bronchoscopy and EBUS FNA by Dr. Thomas. Biopsies including station 10L positive for small cell lung carcinoma. 09/04/2021. PET/CT. IMPRESSION: 1. There is a markedly enlarged an infiltrative left perihilar/suprahilar mass lesion as detailed above. The appearance is typical for a primary bronchogenic neoplasm. 2. An FDG avid satellite nodule is seen in the left upper lobe and there are FDG avid prevascular lymph nodes. 3. There are bilateral FDG avid adrenal nodules which measure up to 1.3 cm. These are pathologically indeterminant, and metastatic lesions are not excluded. 4. Mild patchy opacities in the peripheral left upper lobe show faint FDG uptake. This likely represents a postobstructive/inflammatory process. 5. Emphysema. 6. Additional findings as above. 09/11/2021. Patient presents to emergency room with hemoptysis which has improved since admission. Allergies Allergy/AdvReac Type Severity Reaction Status Date / Time No Known Allergies Allergy Verified 09/11/21 21:31 Home Medications Medication Instructions Recorded Confirmed Type aspirin 81 mg tablet,delayed 81 mg PO DAILY #30 tab 05/25/19 09/11/21 Rx release multivitamin 1 tab PO QAM 10/02/19 09/11/21 History pravastatin 40 mg tablet 40 mg PO QPM #90 tab 04/12/21 09/11/21 Rx flecainide 100 mg tablet 100 mg PO Q12H #180 tab 07/19/21 09/11/21 Rx rivaroxaban 20 mg tablet (Xarelto) 20 mg PO QDD 08/19/21 09/11/21 History Flutter Valve #1 ea 09/08/21 09/08/21 Rx albuterol sulfate 90 mcg/actuation 2 puff INHALATION Q6H PRN #18 g 09/08/21 09/11/21 Rx aerosol inhaler dextromethorphan-guaifenesin 30 1 tab PO Q12H PRN #60 tab 09/08/21 09/11/21 Rx mg-600 mg tablet extended [id number] hr (Mucinex DM) fluticasone propionate 50 1 spray INTRANASAL DAILY #9.9 g 09/08/21 09/11/21 Rx mcg/actuation nasal spray,suspension (Allergy Relief (fluticasone)) umeclidinium 62.5 mcg-vilanterol 1 inh INHALATION DAILY #60 ea 09/08/21 09/11/21 Rx 25 mcg/actuation powdr for inhalation (Anoro Ellipta) metoprolol tartrate 100 mg tablet 100 mg PO QPM 09/11/21 09/11/21 History metoprolol tartrate 100 mg tablet 150 mg PO QAM 09/11/21 09/11/21 History Patient History Medical History (Updated 09/12/21 @ 09:47 by Davonte Camejo) Allergic rhinitis Arthritis COPD with emphysema Hyperlipemia Paroxysmal atrial fibrillation Perirectal abscess PSVT (paroxysmal supraventricular tachycardia) Skin cancer REMOVED FROM LEFT HAND Small cell lung cancer Surgical History H/O knee surgery LEFT History of colonoscopy History of tooth extraction Hx of tonsillectomy S/P radiofrequency ablation operation for arrhythmia "UNSUCCESSFUL" 10/01/2017 >FOLLOWS WITH MADISON FERNANDES Family History Father Diabetes Cardiac disorder Myocardial infarction Lung cancer Hypertension Mother Ovarian cancer Dementia Grandmother (Paternal) Diabetes Grandfather (Paternal) Diabetes Denies family history of Prostate cancer Breast cancer Colorectal cancer Social History Smoking Status: Current every day smoker Tobacco Type: Cigarettes packs per day: 1; Cigarettes Per Day: 5-6; Second Hand Exposure: No; Hx Alcohol Use: No Hx Substance Use: No Preferred Language: Romanian Communication Ability: Effective Group Fitness Manager Required: No Beliefs That Will Affect Care: None marital status: Current Living Situation: Alone 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 Otherwise unremarkable Physical Exam Constitutional: WD/WN, vitals as above Skin: no rashes, warm and dry Psychiatric: A+Ox3, euthymic affect Time Spent Attending I spent 15 minutes in preparation for this consultation including reviewing all the clinical records, reviewing laboratory studies, pathology reports and imaging results. I spent 25 minutes with direct face to face interaction with the patient and/or family including performing a physical exam and answering all questions. I spent 20 minutes documenting this patient's visit. I spent 10 minutes speaking with the following providers regarding this patient's care: Dr. Miller and Dr. Adamson.
[2021-09-12 08:14] LABS: BUN Creatinine Ratio 18.3 (10-20); Calcium 8.5 mg/dl (8.5-10.1); Creatinine Clr Calc Pharmacy 90.6 ml/min; Est GFR (African American) 104.6 ml/min; Est GFR (Non-African American) 90.2 ml/min; Potassium 3.8 mmol/L (3.5-5.1)
[2021-09-12] MEDS: UMECLIDINIUM/VILANTEROL 62.5/25MCG 7 PUFFS/INHALER INH SCH (08:16)
[2021-09-12] MEDS: FLUTICASONE PROPIONATE NA SPR 16 GM BTL SCH (08:16)
[2021-09-12] MEDS: BENZONATATE 100 MG CAPSULE PO SCH ×3 (08:18→20:04)
[2021-09-12] MEDS: METOPROLOL TARTRATE 50 MG TAB PO SCH (08:21)
--- NOTE | 2021-09-12 08:41 | Medical Student Progress Note ---
Date of Service September 12, 2021 Assessment & Plan (1) Hemoptysis: Plan: Mr. 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 He has had a few recurrent episodes of hemoptysis since arrival at ED. Was started on Zosyn empirically. -Likely related to his SSC dx -CTA with evidence of artery impingement by lung mass -normal coagulation studies, ~normal Hg 13.4 -patient to start chemotherapy regimen during hospital stay per heme-onc , awaiting official recommendations -CBC qAM Pulmonology consult appreciated: -deescalate Zosyn to Augmentin for pneumonia, see below -Guaifenesin/codeine to suppress cough -continue to hold ASA and Xarelto (2) Abnormal chest CT: Plan: -Post obstructive PNA more likley than COPD exacerbation -O2 sat 96% on RA -CTA with evidence of occlusion of left upper lobe bronchus and increase in airspace opacity -negative procal -WBC 10.2 down from 12.5 on admission -blood cultures pending -deescalate from Zosyn to Augmentin per Pulm (3) Small cell lung cancer: Plan: Patient with newly diagnosed small cell lung cancer with metastatic lesions to brain and possibly adrenals -Oncology consultation appreciated -patient to start chemotherapy regimen during hospital stay, awaiting official recs -Brain radiation following systemic chemotherapy as an outpatient (4) Paroxysmal atrial fibrillation: Plan: -Continue Flecainide 100mg po BID -Continue Metoprolol -continue to hold Xarelto in setting of hemoptysis (5) COPD with emphysema: Plan: expiratory wheezing on exam. O2 96% on RA -Continue Anoro daily, Albuterol PRN -Continue Mucinex DM -Continue Flonase (6) Hyperlipemia: Plan: Chronic -Continue Pravastatin (7) Hyponatremia: Plan: 134 on admission. 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 Dr. Nell Reis. In agreement with the documented findings as noted in the resident documentation with any exceptions or additions as noted here. Patient reports controlled cough on codeine containing cough syrup with improved but not resolved hemoptysis. ROS as noted. On examination, S1/S2 nl RRR no MCG. Coarse breath sounds diffusely with some end exp. wheeze. Abd NT/ND BS+ve VSS reviewed Data: Hgb 13.4 Hemoptysis in the setting of SCLC - pulmonology, oncology consult - holding ASA, Xarelto. Oncology considering urgent chemotherapy cycle with impingement of juan antonio or on vasculature. SCLC with abnormal chest CT - pulmonology consultation - continue pip/tazo, follow up cultures. Negative procal on admission Paroxysmal AF - continue metoprolol, flecanide. Holding Xarelto as above COPD w/ emphyzema without acute exacerbation - continue inhaled medications, cough modifications as above Else see resident documentation as noted. Subjective Mr. Avila is doing well this morning. He has had a few recurrent hemoptysis episodes. He still has ongoing productive blood tinged cough. Otherwise doing well. Denies fevers, chills, night sweats, nausea, vomiting, chest pain. Review of Systems Constitutional: no fever, no chills and no sweats Respiratory: as per Subjective / HPI, + cough, + dyspnea, + hemoptysis and + sputum production Cardiovascular: no chest pain and no chest pain at rest Gastrointestinal: no abdominal pain, no nausea, no vomiting, no constipation and no diarrhea/loose stools Neurologic: no tingling, no numbness and no paresthesia Physical Exam Constitutional: WD/WN, vitals as above no acute distress Respiratory: normal respiratory effort and + cough; no labored breathing Auscultation: + wheezes (expiratoy ); no crackles, no rales and no rhonchi Cardiovascular: RRR, no murmur, no edema Gastrointestinal (Abdomen): normal bowel sounds, soft, nontender, no hepatosplenomegaly Psychiatric: A+Ox3, euthymic affect Results & Data ([facility]) Vital Signs (Past 12 Hours) Vital Signs Temp Pulse Pulse Resp BP BP Pulse Ox 09/12/21 06:27 37.3 C 74 18 95/64 L 96 09/12/21 02:44 37.0 C 64 18 112/64 96 09/12/21 00:53 72 09/12/21 00:08 37.1 C 79 18 114/63 96 09/11/21 22:30 122 H 20 120/72 97 09/11/21 22:13 78 23 114/54 L 95 09/11/21 21:50 87 18 118/63 95 09/11/21 21:00 87 22 104/63 95 09/11/21 20:50 89 24 111/63 96 Laboratory Results Laboratory Results WBC 10.23 K/uL (4.8-10.8) 09/12/21 06:54 RBC 4.20 M/uL (4.7-6.1) L 09/12/21 06:54 Hgb 13.4 g/dL (14.0-18.0) L 09/12/21 06:54 Hct 38.7 % (42-52) L 09/12/21 06:54 MCV 92.1 fL (80-100) 09/12/21 06:54 MCH 31.9 pg (25-34) 09/12/21 06:54 MCHC 34.6 g/dL (32-36) 09/12/21 06:54 RDW Std Deviation 44.1 fL (36.4-46.3) 09/12/21 06:54 RDW Coeff of Gagandeep 13.1 % (11.5-14.5) 09/12/21 06:54 Plt Count 292 K/uL (130-400) 09/12/21 06:54 MPV 10.5 fL (7.4-10.4) H 09/12/21 06:54 Immature Gran % (Auto) 0.2 % 09/12/21 06:54 Neut % (Auto) 63.3 % 09/12/21 06:54 Lymph % (Auto) 24.1 % 09/12/21 06:54 Loíza % (Auto) 10.6 % 09/12/21 06:54 Eos % (Auto) 1.5 % 09/12/21 06:54 Baso % (Auto) 0.3 % 09/12/21 06:54 Neut # (Auto) 6.48 K/uL (1.4-6.5) 09/12/21 06:54 Lymph # (Auto) 2.47 K/uL (1.2-3.4) 09/12/21 06:54 Loíza # (Auto) 1.08 K/uL (0.11-0.59) H 09/12/21 06:54 Eos # (Auto) 0.15 K/uL (0-0.5) 09/12/21 06:54 Baso # (Auto) 0.03 K/uL (0-0.2) 09/12/21 06:54 Immature Gran # (Auto) 0.02 K/uL (0.00-0.02) 09/12/21 06:54 PT 11.7 Seconds (9.0-12.0) 09/11/21 20:18 INR 1.1 (0.9-1.1) 09/11/21 20:18 APTT 30.0 Seconds (21.0-31.0) 09/11/21 20:18 PTT Ratio 1.1 09/11/21 20:18 Sodium 134 mmol/L (136-145) L 09/12/21 06:54 Potassium 3.8 mmol/L (3.5-5.1) 09/12/21 06:54 Chloride 105 mmol/L (98-107) 09/12/21 06:54 Carbon Dioxide 23 mmol/L (21-32) 09/12/21 06:54 Anion Gap 6 (3-11) 09/12/21 06:54 BUN 15 mg/dl (6-23) 09/12/21 06:54 Creatinine 0.82 mg/dl (0.6-1.4) 09/12/21 06:54 Est Cr Clr Drug Dosing 90.6 ml/min 09/12/21 06:54 Est GFR ( Amer) 104.6 ml/min 09/12/21 06:54 Est GFR (Non-Af Amer) 90.2 ml/min 09/12/21 06:54 BUN/Creatinine Ratio 18.3 (10-20) 09/12/21 06:54 Glucose 96 mg/dl (70-99(Fasting)) 09/12/21 06:54 Calcium 8.5 mg/dl (8.5-10.1) 09/12/21 06:54 Magnesium 1.9 mg/dl (1.7-2.4) 09/11/21 20:18 Total Bilirubin 0.3 mg/dl (0.2-1.0) 09/11/21 20:18 AST 18 U/L (13-39) 09/11/21 20:18 ALT 20 U/L (7-52) 09/11/21 20:18 Alkaline Phosphatase 89 U/L (34-104) 09/11/21 20:18 Total Protein 6.5 gm/dl (6.0-8.3) 09/11/21 20:18 Albumin 3.7 gm/dl (3.4-5.0) 09/11/21 20:18 Globulin 2.8 gm/dl (2.5-4.0) 09/11/21 20:18 Albumin/Globulin Ratio 1.3 (0.9-2) 09/11/21 20:18 Procalcitonin 0.12 ng/ml (0-0.5) 09/11/21 22:41 SARS-CoV-2, RNA, NAAT NEGATIVE (NEGATIVE) 09/11/21 20:20 Blood Type A Negative 09/11/21 20:47 Antibody Screen NEGATIVE 09/11/21 20:47 Impressions Chest CTA 09/11/21 20:21 CT ANGIOGRAPHY OF THE CHEST, PULMONARY EMBOLUS PROTOCOL CLINICAL HISTORY: hemoptysis, history of lung cancer. COMPARISON STUDY: Chest CT August 19, 2021. PET/CT September 04, 2021. TECHNIQUE: Following IV administration of 120 mL of Optiray, helical axial images of the chest were obtained utilizing the pulmonary embolus protocol. Maximal intensity projections and sagittal and coronal reformats were viewed on an independent 3D workstation. IV contrast was administered without complication. Automated exposure control was utilized for the study. A dose lowering technique was utilized adhering to the principles of ALARA. CT DOSE: 418.46 mGy.cm FINDINGS: Note is again made of an infiltrative left perihilar/suprahilar mass which measures 6.7 x 6.3 cm. This mass results in marked narrowing of the distal left pulmonary artery as well as the left upper and left lower lobe pulmonary arteries. These vessels are markedly attenuated. There is nonopacification of multiple segmental pulmonary arteries within the left lung, most notably within within the left lower lobe. This is likely due to upstream narrowing/occlusion. Emboli would be difficult to completely exclude. No right-sided pulmonary emboli are present. The mass also results in occlusion of left upper lobe bronchus as well as lingular segmental bronchi. Left upper lobe segmental bronchi are opacified. A small left pleural effusion has developed. Interlobular septal thickening within the left upper lobe is noted. The size the heart is normal. There is no pericardial effusion. No thoracic aortic dissection is present. Mild left lower lobe alveolar opacities are noted. Moderate left upper lobe airspace opacity has increased. A 1.3 cm left upper lobe nodule on image 257 is similar to prior PET/CT. Right lung is unremarkable. No suspicious lesions within the visualized bony thorax. Visualized portions of the upper abdomen are unremarkable. IMPRESSION: 1. 6.7 x 6.3 cm left hilar/suprahilar infiltrative mass consistent with primary lung malignancy. This mass results in narrowing of the left pulmonary artery and severe narrowing of the left upper lobe and lower lobe pulmonary arteries. Nonopacification of multiple segmental pulmonary arterial branches within the left lung is likely due to vessel stenosis/occlusion with mixing artifact. Although less likely, emboli could appear similar. No right-sided pulmonary emboli. 2. Occlusion of the left upper lobe bronchus. Increase in left upper lobe airspace opacity which favors post obstructive pneumonia. Although less likely, pulmonary infarct could appear similar. Mild left lower lobe airspace opacities which favor an infectious process. 3. Interval development of a small left pleural effusion. 4. No change in a 1.3 cm left upper lobe nodule which favors a metastasis. ACT 112: Negative or not required by law. Electronically signed by: Stan Link M.D. 09/12/2021 9:19 AM Medications Administered Current Medications Acetaminophen (Acetaminophen 325 Mg Tab) 650 mg PO Q4H PRN PRN Reason: pain/fever Stop: 10/12/21 00:07 Albuterol (Albuterol Hfa 8 Gm Inhaler) 2 puffs INH Q6H PRN PRN Reason: Shortness Of Breath Or Wheezing Stop: 10/12/21 00:07 Benzonatate (Benzonatate 100 Mg Capsule) 100 mg PO TID [facility] Stop: 10/12/21 08:59 Last Admin: 09/12/21 08:18 Dose: 100 mg Documented by: Flecainide Acetate (Flecainide Acetate 100 Mg Tablet) 100 mg PO Q12H [facility] Stop: 10/12/21 00:29 Last Admin: 09/12/21 11:08 Dose: 100 mg Documented by: Fluticasone Propionate (Fluticasone Propionate Na Spr 16 Gm Btl) 1 sprays NA DAILY [facility] Stop: 10/12/21 08:59 Last Admin: 09/12/21 08:16 Dose: 1 sprays Documented by: Guaifenesin (Guaifenesin 600 Mg Tabcr) 600 mg PO Q12H PRN PRN Reason: cough Stop: 10/12/21 09:03 Guaifenesin/Codeine Phosphate (Guaifenesin/Codeine 100mg/10mg 5ml Udc) 5 ml PO Q6 [facility] Stop: 10/12/21 11:14 Piperacillin Sod/Tazobactam (Sod 3.375 gm/ Dextrose) 115 mls @ 28.75 mls/hr IV Q8H [facility]; Protocol Stop: 09/19/21 03:59 Last Admin: 09/12/21 11:07 Dose: 28.8 mls/hr Documented by: Metoprolol Tartrate (Metoprolol Tartrate 50 Mg Tab) 150 mg PO QAM [facility] Stop: 10/12/21 08:59 Last Admin: 09/12/21 08:21 Dose: 150 mg Documented by: Metoprolol Tartrate (Metoprolol Tartrate 100 Mg Tab) 100 mg PO QPM [facility] Stop: 10/12/21 20:59 Last Admin: 09/12/21 00:59 Dose: 100 mg Documented by: Miscellaneous Information (Piperacill/Tazobac Consult Active) 1 ea N/A UD PRN PRN Reason: Consult Stop: 10/12/21 00:07 Ondansetron HCl (Ondansetron Inj 2 Mg/Ml 2 Ml Vial) 4 mg IV Q6H PRN PRN Reason: Nausea Stop: 10/12/21 00:07 Pravastatin Sodium (Pravastatin Sod 40 Mg Tab) 40 mg PO QPM [facility] Stop: 10/12/21 20:59 Last Admin: 09/12/21 00:59 Dose: 40 mg Documented by: Umeclidinium/Vilanterol (Umeclidinium/Vilanterol 62.5/25mcg 7 Puffs/Inhaler) 1 puffs INH DAILY [facility] Stop: 10/12/21 08:59 Last Admin: 09/12/21 08:16 Dose: 1 puffs Documented by:
--- NOTE | 2021-09-12 09:20 | CT Scan Report ---
CT ANGIOGRAPHY OF THE CHEST, PULMONARY EMBOLUS PROTOCOL CLINICAL HISTORY: hemoptysis, history of lung cancer. COMPARISON STUDY: Chest CT August 19, 2021. PET/CT September 04, 2021. TECHNIQUE: Following IV administration of 120 mL of Optiray, helical axial images of the chest were o btained utilizing the pulmonary embolus protocol. Maximal intensity projections and sagittal and cor onal reformats were viewed on an independent 3D workstation. IV contrast was administered without co mplication. Automated exposure control was utilized for the study. A dose lowering technique was ut ilized adhering to the principles of ALARA. CT DOSE: 418.46 mGy.cm FINDINGS: Note is again made of an infiltrative left perihilar/suprahilar mass which measures 6.7 x 6.3 cm. This mass results in marked narrowing of the distal left pulmonary artery as well as the left upper and left lower lobe pulmonary arteries. These vessels are markedly attenuated. There is nonopa cification of multiple segmental pulmonary arteries within the left lung, most notably within within the left lower lobe. This is likely due to upstream narrowing/occlusion. Emboli would be difficult to completely exclude. No right-sided pulmonary emboli are present. The mass also results in occlusion of left upper lobe bronchus as well as lingular segmental bronchi. Left upper lobe segmental bronchi are opacified. A small left pleural effusion has developed. Interlobular septal thickening within the left upper lobe is noted. The size the heart is normal. There is no pericardial effusion. No thoraci c aortic dissection is present. Mild left lower lobe alveolar opacities are noted. Moderate left uppe r lobe airspace opacity has increased. A 1.3 cm left upper lobe nodule on image 257 is similar to mehran or PET/CT. Right lung is unremarkable. No suspicious lesions within the visualized bony thorax. Visua lized portions of the upper abdomen are unremarkable. IMPRESSION: 1. 6.7 x 6.3 cm left hilar/suprahilar infiltrative mass consistent with primary lung malignancy. This mass results in narrowing of the left pulmonary artery and severe narrowing of the left upper lobe a nd lower lobe pulmonary arteries. Nonopacification of multiple segmental pulmonary arterial branches within the left lung is likely due to vessel stenosis/occlusion with mixing artifact. Although less l ikely, emboli could appear similar. No right-sided pulmonary emboli. 2. Occlusion of the left upper lobe bronchus. Increase in left upper lobe airspace opacity which favo rs post obstructive pneumonia. Although less likely, pulmonary infarct could appear similar. Mild lef t lower lobe airspace opacities which favor an infectious process. 3. Interval development of a small left pleural effusion. 4. No change in a 1.3 cm left upper lobe nodule which favors a metastasis. ACT 112: Negative or not required by law. Electronically signed by: Stan Link M.D. 09/12/2021 9:19 AM
--- NOTE | 2021-09-12 10:02 | Electrocardiogram Report ---
Test Reason : Blood Pressure : / mmHG Vent. Rate : 092 BPM Atrial Rate : 092 BPM P-R Int : 154 ms QRS Dur : 088 ms QT Int : 352 ms P-R-T Axes : 076 075 072 degrees QTc Int : 435 ms Poor data quality, interpretation may be adversely affected Normal sinus rhythm Possible Left atrial enlargement Borderline ECG No previous ECGs available Confirmed by Romaine Maldonado ([id number]) on 09/12/2021 10:02:09 AM Referred By: REFERRED SELF Confirmed By:Beltran Maldonado
--- NOTE | 2021-09-12 10:28 | Pulmonary Consultation ---
Date of Consultation September 12, 2021 Assessment & Plan (1) Hemoptysis: Hemoptysis likely secondary to pulmonary artery impingement given the large lung mass. Recommend urgent chemotherapy and possible radiation therapy to shrink the mass. Small cell lung cancer is usually very responsive to ch emotherapy. Monitor for tumor lysis syndrome while on therapy. No indication for bronchoscopy at this time. Hemoptysis has decreased. If more significant hemoptysis is seen, would recommend nebulized TXA and transfer to ICU for airway monitoring. (2) Small cell lung cancer: Patient with metastatic small cell lung cancer. Patient to be evaluated by medical oncology as above. I discussed the case with Dr. Donaldo Moore of radiation oncology and he would like to hold off on radiation until the patient undergoes chemotherapy. (3) Pulmonary mass: Should decrease in size once chemotherapy is started. (4) Paroxysmal atrial fibrillation: Would recommend holding aspirin and Xarelto at this time given the severity of hemoptysis on admission. (5) Chronic cough: Recommend attempting to suppress the cough as much as possible in this acute phase with inhalers, Tessalon Perles and codeine if necessary. Thank you for the consultation. Pulmonary continue to follow along with you. History of Present Illness Reason for Consultation: Hemoptysis Attending Physician: Patricio Martin MD History of Present Illness 70-year-old male with a past medical history of tobacco abuse who was seen in pulmonary consultation by Dr. Todd 09/01/2021. He was found to have a left-sided mediastinal mass and underwent EBUS. Mediastinal lymph node biopsies were suggestive of small cell lung cancer. Patient was referred to medical oncology and radiation oncology. He also underwent MRI of the brain which demonstrated a small metastatic deposit. He has yet to undergo any treatment. Yesterday he presented with hemoptysis which was bright red. His hemoptysis has improved today and it is now admixed with the sputum. Notably, he is on Xarelto chronically for history of A. fib. This has been held along with his aspirin. He is currently on an oral Ellipta and Tessalon Perles to suppress his cough. He denies any shortness of breath or chest pain at this time. His hemoglobin has had a slight downtrend to 13.4 from a baseline of around 14- 15. INR is 1.1. Platelet count 292,000. Chest CTA completed 09/11/2021 revealed a 6.7 x 6.3 cm left hilar suprahilar infiltrative mass consistent with primary lung cancer. The mass was resulting in narrowing of the left pulmonary artery and severe narrowing of the left upper lobe and lower lobe pulmonary arteries. Occlusion of the left upper lobe bronchus was seen as well. Patient was started on Zosyn due to concerns of postobstructive pneumonia. Allergies Allergy/AdvReac Type Severity Reaction Status Date / Time No Known Allergies Allergy Verified 09/11/21 21:31 Home Medications Medication Instructions Recorded Confirmed Type aspirin 81 mg tablet,delayed 81 mg PO DAILY #30 tab 05/25/19 09/11/21 Rx release multivitamin 1 tab PO QAM 10/02/19 09/11/21 History pravastatin 40 mg tablet 40 mg PO QPM #90 tab 04/12/21 09/11/21 Rx flecainide 100 mg tablet 100 mg PO Q12H #180 tab 07/19/21 09/11/21 Rx rivaroxaban 20 mg tablet (Xarelto) 20 mg PO QDD 08/19/21 09/11/21 History Flutter Valve #1 ea 09/08/21 09/08/21 Rx albuterol sulfate 90 mcg/actuation 2 puff INHALATION Q6H PRN #18 g 09/08/21 09/11/21 Rx aerosol inhaler dextromethorphan-guaifenesin 30 1 tab PO Q12H PRN #60 tab 09/08/21 09/11/21 Rx mg-600 mg tablet extended [id number] hr (Mucinex DM) fluticasone propionate 50 1 spray INTRANASAL DAILY #9.9 g 09/08/21 09/11/21 Rx mcg/actuation nasal spray,suspension (Allergy Relief (fluticasone)) umeclidinium 62.5 mcg-vilanterol 1 inh INHALATION DAILY #60 ea 09/08/21 09/11/21 Rx 25 mcg/actuation powdr for inhalation (Anoro Ellipta) metoprolol tartrate 100 mg tablet 100 mg PO QPM 09/11/21 09/11/21 History metoprolol tartrate 100 mg tablet 150 mg PO QAM 09/11/21 09/11/21 History Patient History Medical History (Updated 09/12/21 @ 09:47 by Davonte Camejo) Allergic rhinitis Arthritis COPD with emphysema Hyperlipemia Paroxysmal atrial fibrillation Perirectal abscess PSVT (paroxysmal supraventricular tachycardia) Skin cancer REMOVED FROM LEFT HAND Small cell lung cancer Surgical History H/O knee surgery LEFT History of colonoscopy History of tooth extraction Hx of tonsillectomy S/P radiofrequency ablation operation for arrhythmia "UNSUCCESSFUL" 10/01/2017 >FOLLOWS WITH [facility] JENKINSELER Family History Father Diabetes Cardiac disorder Myocardial infarction Lung cancer Hypertension Mother Ovarian cancer Dementia Grandmother (Paternal) Diabetes Grandfather (Paternal) Diabetes Denies family history of Prostate cancer Breast cancer Colorectal cancer Social History Smoking Status: Current every day smoker Tobacco Type: Cigarettes packs per day: 1; Cigarettes Per Day: 5-6; Second Hand Exposure: No; Hx Alcohol Use: No Hx Substance Use: No Preferred Language: Kyrgyz Communication Ability: Effective Telephone Advice Nurse Required: No Beliefs That Will Affect Care: None marital status: Current Living Situation: Alone 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 Feels Safe at Home: Yes caffeine: Yes Dental Care, Regularly: No Physical Activity Frequency: 1-2 Times per Week Seatbelt Use: sometimes Sunscreen Use: Yes Assistive Devices: None Review of Systems Review of Systems: All systems reviewed & are unremarkable except as noted in HPI & below Physical Exam Constitutional: WD/WN, vitals as above ENMT: external ear and nose normal, oropharynx normal Neck: trachea midline, no thyromegaly Respiratory: normal respiratory effort, lungs clear to auscultation Cardiovascular: RRR, no murmur, no edema Gastrointestinal (Abdomen): normal bowel sounds, soft, nontender, no hepatosplenomegaly Skin: no rashes, warm and dry Neurologic: PERRL, EOMI, accommodation nl, no face palsy, no dysarthria Psychiatric: A+Ox3, euthymic affect Results & Data Results & Data ([facility]) Vital Signs (Past 12 Hours) Vital Signs Temp Pulse Pulse Resp BP BP Pulse Ox 09/12/21 09:00 75 09/12/21 08:22 75 114/70 09/12/21 06:27 37.3 C 74 18 95/64 L 96 09/12/21 02:44 37.0 C 64 18 112/64 96 09/12/21 00:53 72 09/12/21 00:08 37.1 C 79 18 114/63 96 09/11/21 22:30 122 H 20 120/72 97 PG Care Time/CCT Total # of Minutes Spent Total Time Spent with Patient: Total time spent is greater than 50% in coordination of care (as documented) at patient's floor/unit and/or counseling patient: Coding Level of Care Code 43071 Initial Inpt Care Lvl 2 Diagnoses Small cell lung cancer C34.90 Pulmonary mass R91.8 Paroxysmal atrial fibrillation I48.0 Hemoptysis R04.2 Chronic cough R05.3
[2021-09-12] MEDS: guaiFENesin/CODEINE 100MG/10MG 5ML UDC PO SCH ×3 (11:50→23:20)
--- NOTE | 2021-09-12 19:00 | Consultation Report ---
DATE OF SERVICE: 09/12/2021. REASON FOR CONSULTATION: Small cell lung cancer. HISTORY OF PRESENT ILLNESS: Pleasant 70-year-old gentleman who was recently diagnosed with extensive stage small cell lung cancer. In summary, he had presented to the emergency room on 08/19/2021 with fever and cough for which chest x-ray was obtained, which revealed some fullness in the left hilum. CT scan of the chest revealed a mass in the left hilum consistent with metastatic lesion or neoplasm. The patient was subsequently discharged for outpatient followup with Pulmonology. Brain MRI performed on 08/31/2021, revealed a 3 mm enhancing nodule within the left cerebellar hemisphere, highly suspicious for metastatic focus as well as 4 mm nonenhancing nodule within the left lateral ventricle, which was indeterminate. PET CT on 09/04/2021 revealed markedly enlarged and infiltrative left perihilar/suprahilar mass lesion, typical for primary bronchogenic neoplasm as well as FDG avid satellite nodule in the left upper lobe, FDG avid prevascular lymph nodes, bilateral FDG avid adrenal nodules measuring up to 1.3 cm, which were determined to be pathologically indeterminate with metastatic lesions not excluded. Bronchoscopy/EBUS with biopsies performed by Dr. Thomas on 09/01/2021 revealed small cell carcinoma. Patient was scheduled to be evaluated by me in Oncology Clinic next week, but presented to the ER on 09/11/2021 with complaints of hemoptysis, shortness of breath, and persistent cough. Labs obtained on admission, revealed hemoglobin of 13.4, decreased from baseline of 15-16. CTA chest obtained on admission revealed 6.7 x 6.3 cm left hilar/suprahilar infiltrative mass consistent with primary lung malignancy, resulting in narrowing of the left pulmonary artery and severe narrowing of the left upper lobe and lower lobe pulmonary arteries with nonopacification of the multiple segmental pulmonary arterial branches within the left lung, likely due to vessel stenosis/occlusion. Also, noted on CT scan was occlusion of the left upper lobe bronchus, increase in left upper lobe airspace opacities favoring postobstructive pneumonia versus pulmonary infarct as well as interval development of small left pleural effusion. During my evaluation of patient today, complains of cough associated with significant hemoptysis as well as shortness of breath leading to his presentation in the ED. Also, complains of about 15 pounds weight loss over the past 1 to 2 months. He denies headaches or endorses dizziness. Denies nausea, vomiting, diarrhea or constipation. PAST MEDICAL HISTORY: 1. COPD. 2. Paroxysmal atrial fibrillation. 3. History of paroxysmal supraventricular tachycardia. 4. Arthritis. PAST SURGICAL HISTORY: 1. Left knee surgery. 2. History of tonsillectomy. HOME MEDICATIONS: 1. Metoprolol. 2. Mucinex. 3. Albuterol as needed. 4. Xarelto. 5. Flecainide. 6. Pravastatin. 7. Aspirin. ALLERGIES: No known drug allergies. FAMILY HISTORY: Significant for ovarian cancer in his mother. SOCIAL HISTORY: Endorses a [id number] history of smoking. Denies illicit drug use. REVIEW OF SYSTEMS: CONSTITUTIONAL: Positive for weight loss. No fever or night sweats. ENT: Unremarkable. CARDIOVASCULAR: Negative for chest pain or palpitations. Positive for dizziness. RESPIRATORY: Positive for shortness of breath, hemoptysis, and cough. GASTROINTESTINAL: Denies abdominal pain, diarrhea, hematemesis, nausea, vomiting or dyspepsia. GENITOURINARY: Negative for urinary frequency, hematuria or dysuria. NEUROLOGIC: Positive for dizziness. No headaches or focal neurologic weakness. LYMPHATICS AND HEMATOLOGIC: Negative for new adenopathy. PHYSICAL EXAMINATION: VITAL SIGNS: Blood pressure 103/68, heart rate 70, respiratory rate 18, temperature 37.6, and oxygen saturation 95% on room air. EYES: Without conjunctival erythema or icterus. NECK: Negative for palpable neck masses or lymphadenopathy. RESPIRATORY: Decreased air entry bilaterally. CARDIOVASCULAR: Heart was regular rate and rhythm without significant murmur, gallops, or rubs. GASTROINTESTINAL: Abdomen is soft with normal bowel sounds. No palpable hepatosplenomegaly. LYMPHATIC SYSTEM: No palpable peripheral lymphadenopathy. MUSCULOSKELETAL: Unremarkable. EXTREMITIES: No edema bilaterally. LABORATORY TESTING: CBC: White cell count of 10, hemoglobin of 13.4, hematocrit of 38.7, platelet count of 292,000. Chemistry significant for sodium of 134, but otherwise unremarkable. IMAGING STUDIES: CTA chest on 09/11/2021. IMPRESSION: 1. 3.7 x 3.6 cm left hilar/suprahilar infiltrative mass consistent with primary lung malignancy. This mass result in narrowing of the left pulmonary artery and severe narrowing of the left upper lobe and lower lobe pulmonary arteries. Opacification of multiple segmental pulmonary arterial branches within the left lung is likely due to vessel stenosis/occlusion with mixing artifact. 2. Occlusion of the left upper lobe bronchus. 3. Interval development of small left pleural effusion. 4. No change in 1.3 cm left upper lobe nodule, which favors metastasis. PET CT on 09/04/2021. IMPRESSION: 1. There is markedly enlarged and infiltrative left perihilar/suprahilar mass lesion with appearance typical for primary bronchogenic neoplasm. 2. FDG avid satellite nodule in the left upper lobe and FDG avid prevascular lymph nodes. 3. Bilateral FDG avid adrenal nodules which measure up to 1.3 cm. These are pathologically indeterminate and metastatic lesions are not excluded. 4. Mild patchy opacities in the peripheral left upper lobe show faint FDG uptake. This likely represents postoperative/inflammatory process. Brain MRI on 08/31/2021 IMPRESSION: 1. A 3 mm enhancing nodule within the left cerebellar hemisphere. This is highly suspicious for metastatic focus. 2. There is a 4 mm nonenhancing nodule within the left lateral ventricle. This is indeterminate, but bears watching no future examinations. 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 Discussed my thoughts with the patient. I explained to him that given the extensive nature of disease, goals of treatment will be palliative to improve symptoms and prolong life. I discussed options for palliative systemic therapy, with the patient today. I explained to him that multiple clinical trials have revealed significant overall survival advantage with given combination chemoimmunotherapy in extensive stage small cell lung cancer. Recommended treatment with carboplatin/etoposide/atezolizumab based on [id number] trial, which demonstrated PFS and OS advantage. Treatment would consist of atezolizumab 1200 mg IV given on day 1, carboplatin AUC 5 day1, etoposide 100 mg/m2 IV given days 1, 2 and 3 every 21 days for a total of 4 cycles followed by maintenance immunotherapy treatment with atezolizumab. Discussed potential side effects of treatment with the patient including nausea and vomiting, increased risk of infection, potential need for PRBC/platelet transfusion due to myelosuppression, immunotherapy related side effects, renal and liver impairment. Given large mass as well as clinical symptoms, would recommend the patient receive cycle #1 of treatment while inpatient. Will omit atezolizumabwith cycle 1, but will go ahead with carboplatin AUC 5 on day 1 plus etoposide 100 mg/m2 IV days 1, 2 and 3 starting tomorrow. His labs were reviewed and are all within treatment parameters. Although he would require MediPort placement per his preference and potentially difficult IV access, would recommend commencing chemotherapy as soon as possible via peripheral access and scheduling him for outpatient MediPort placement upon discharge from hospital. PLAN: 1. Recommend starting palliative chemotherapy tomorrow with carboplatin AUC 5 and etoposide 100 mg/m2 day 1, 2 and 3. 2. Patient will need G-CSF with filgrastim which will be given 24 hours after completion of etoposide, and he should receive for total of 2 days prior to discharge from hospital. 3. Recommend setting up outpatient MediPort placement. 4. Recommend Compazine 10 mg q.8 hours as needed for nausea and Zofran 8 mg q.8 hours as needed for nausea. 5. The patient will be scheduled for outpatient followup with me to continue treatment every 3 weeks with incorporation of atezolizumab. 6. Recommend checking CBC, CMP, LDH daily while he is inpatient. 7. Patient will require chemotherapy discussion with Chemo RN upon discharge from hospital, which I will arrange. Thank you for this consult. Oncology will continue following the patient while in the hospital. Please feel free to call if you have any further questions. Job ID: [id number] [facility]
[2021-09-12] MEDS: ACETAMINOPHEN 325 MG TAB PO PRN (22:09)
[2021-09-13] MEDS: PIPERACILLIN/TAZOBACTAM 3.375 GM in DEXTROSE 5% 100 ML IV SCH (04:03)
[2021-09-13] MEDS: guaiFENesin/CODEINE 100MG/10MG 5ML UDC PO SCH ×4 (05:16→23:22)
--- NOTE | 2021-09-13 06:30 | Hospitalist Progress Note ---
Date of Service September 13, 2021 Assessment & Plan (1) Hemoptysis: Plan: Mr. 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 He has had a few recurrent episodes of hemoptysis since arrival at ED. Was started on Zosyn empirically. -Likely related to his SSC dx -CTA with evidence of artery impingement by lung mass -normal coagulation studies, ~normal Hg 13.4 -patient to start chemotherapy regimen during hospital stay per heme-onc , awaiting official recommendations -CBC qAM Pulmonology consult appreciated: -deescalate Zosyn to Augmentin for pneumonia, see below -Guaifenesin/codeine to suppress cough -continue to hold ASA and Xarelto (2) Abnormal chest CT: Plan: -Post obstructive PNA more likley than COPD exacerbation -O2 sat 96% on RA -CTA with evidence of occlusion of left upper lobe bronchus and increase in airspace opacity -negative procal -WBC 10.2 down from 12.5 on admission -blood cultures pending -deescalate from Zosyn to Augmentin per Pulm (3) Small cell lung cancer: Plan: Patient with newly diagnosed small cell lung cancer with metastatic lesions to brain and possibly adrenals -Oncology consultation appreciated -patient to start chemotherapy regimen during hospital stay, awaiting official recs -Brain radiation following systemic chemotherapy as an outpatient (4) Paroxysmal atrial fibrillation: Plan: -Continue Flecainide 100mg po BID -Continue Metoprolol -continue to hold Xarelto in setting of hemoptysis (5) COPD with emphysema: Plan: expiratory wheezing on exam. O2 96% on RA -Continue Anoro daily, Albuterol PRN -Continue Mucinex DM -Continue Flonase (6) Hyperlipemia: Plan: Chronic -Continue Pravastatin (7) Hyponatremia: Plan: 134 on admission. 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
[2021-09-13] MEDS: UMECLIDINIUM/VILANTEROL 62.5/25MCG 7 PUFFS/INHALER INH SCH (07:37)
[2021-09-13] MEDS: BENZONATATE 100 MG CAPSULE PO SCH ×3 (07:37→20:45)
[2021-09-13] MEDS: FLUTICASONE PROPIONATE NA SPR 16 GM BTL SCH (07:37)
[2021-09-13] MEDS: METOPROLOL TARTRATE 50 MG TAB PO SCH (07:37)
[2021-09-13] MEDS: guaiFENesin 600 MG TABCR PO PRN (07:37)
[2021-09-13 08:41] LABS: Basophils # (auto) 0.03 K/uL (0-0.2); Basophils % (auto) 0.3 %; Eosinophils # (auto) 0.15 K/uL (0-0.5); Eosinophils % (auto) 1.3 %; Hematocrit (blood only) 38.4 % (42-52); Hemoglobin 13.3 g/dL (14.0-18.0); Immature Granulocytes # (auto) 0.03 K/uL (0.00-0.02); Immature Granulocytes % (auto) 0.3 %; Lymphocytes # (auto) 2.94 K/uL (1.2-3.4); Lymphocytes % (auto) 25.7 %; Mean Corpuscular Hemoglobin 31.7 pg (25-34); Mean Corpuscular Hgb Conc 34.6 g/dL (32-36); Mean Corpuscular Volume 91.6 fL (80-100); Mean Platelet Volume 10.2 fL (7.4-10.4); Monocytes # (auto) 0.92 K/uL (0.11-0.59); Neutrophils # (auto) 7.36 K/uL (1.4-6.5); Neutrophils % (auto) 64.4 %; Platelet Count 302 K/uL (130-400); RDW Coefficient of Variation 12.9 % (11.5-14.5); RDW Standard Deviation 43.5 fL (36.4-46.3); Red Blood Count 4.19 M/uL (4.7-6.1); White Blood Count 11.43 K/uL (4.8-10.8)
[2021-09-13 09:16] LABS: BUN Creatinine Ratio 11.8 (10-20); Calcium 8.7 mg/dl (8.5-10.1); Creatinine Clr Calc Pharmacy 79.8 ml/min; Est GFR (African American) 96.7 ml/min; Est GFR (Non-African American) 83.5 ml/min; Potassium 3.7 mmol/L (3.5-5.1)
[2021-09-13] MEDS ORDERED: FOSAPREPITANT DIMEGLUMINE 150 MG in SODIUM CHLORIDE 0.9% 145 ML IV SCH (09:30)
[2021-09-13] MEDS ORDERED: PALONOSETRON 0.25 MG in SYRINGE 0 ML IV SCH (09:30)
[2021-09-13] MEDS ORDERED: SOD CHL IV SCH ×2 (10:00→10:30)
[2021-09-13] MEDS ORDERED: POLYOLEFIN IV SCH ×2 (10:00→10:30)
[2021-09-13] MEDS ORDERED: ETOPOSIDE IV SCH ×2 (10:00→10:30)
[2021-09-13] MEDS ORDERED: SODIUM CHLORIDE 0.9% IV SCH (10:00)
[2021-09-13] MEDS ORDERED: CARBOPLATIN IV SCH (10:00)
--- NOTE | 2021-09-13 10:10 | Medical Student Progress Note ---
Date of Service September 13, 2021 Assessment & Plan (1) Hemoptysis: Plan: Mr. 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 He continuos to have recurrent episodes of hemoptysis since arrival at ED. Was started on Zosyn empirically. -Likely related to his SSC dx -CTA with evidence of artery impingement by lung mass -normal coagulation studies, ~normal Hg 13.3 -patient starting first dose of chemotherapy today per heme-onc -monitor for tumor lysis syndrome -CBC qAM -BMP qAM Pulmonology consult appreciated: -switched Zosyn to Augmentin for pneumonia, see below -continue Guaifenesin/codeine to suppress cough -continue to hold ASA and Xarelto (2) Abnormal chest CT: Plan: -Post obstructive PNA more likley than COPD exacerbation -O2 sat 93% on RA -CTA with evidence of occlusion of left upper lobe bronchus and increase in airspace opacity -negative procal -WBC 11.4 -blood cultures negative at 24 hours, continue to follow -switched Zosyn to Augmentin per Pulm -Tylenol PRN for fever (3) Small cell lung cancer: Plan: Patient with newly diagnosed small cell lung cancer with metastatic lesions to brain and possibly adrenals -patient starting first dose of chemotherapy today per heme-onc -will be administered via peripheral access -port placement consult as an outpatient -Brain radiation following systemic chemotherapy as an outpatient (4) Paroxysmal atrial fibrillation: Plan: -Continue Flecainide 100mg po BID -Continue Metoprolol -continue to hold Xarelto in setting of hemoptysis (5) COPD with emphysema: Plan: expiratory wheezing on exam. O2 96% on RA -Continue Anoro daily, Albuterol PRN -Continue Mucinex DM -Continue Flonase (6) Hyperlipemia: Plan: Chronic -Continue Pravastatin (7) Hyponatremia: Plan: 134 on admission. 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 Agree with impression plan as noted in resident documentation. Upon our bedside exam midmorning, he was resting comfortably in bed awaiting start of his first chemotherapy treatment. He had no complaints. Exam 117/74, 79, 18, 37, 92% room air Pleasant. No distress appreciated. Heart regular Lung sounds surprisingly clear, and symmetrical. Data WBC 11.43, hemoglobin 13.3, platelet count 302. Sodium 132, potassium 3.7, BUN 11, creatinine 0.93 Hemoptysis Small cell lung cancer Appreciate pulmonology and oncology consultation Holding aspirin and Xarelto Urgent chemotherapy beginning today Paroxysmal atrial fibrillation Continue metoprolol and flecainide Off anticoagulation secondary to hemoptysis COPD without exacerbation Continue home inhaled medications Else see resident documentation as noted. Subjective Mr. Avila is doing well this morning. He is a little nervous about starting chemotherapy treatment today. He has an episode of SOB last night that resolved with albuterol. Also had a fever last night of 38 C that resolved with Tylenol. He has been afebrile since. He continuos to have recurrent episodes of blood tinged sputum with cough. Otherwise doing well. No chest pain, weakens, nausea, vomiting Review of Systems Constitutional: + fever; no chills and no sweats Respiratory: as per Subjective / HPI, + cough, + dyspnea, + hemoptysis and + sputum production Cardiovascular: no chest pain and no chest pain at rest Gastrointestinal: no abdominal pain, no nausea, no vomiting, no constipation and no diarrhea/loose stools Neurologic: no tingling, no numbness and no paresthesia Physical Exam Constitutional: WD/WN, vitals as above no acute distress Respiratory: normal respiratory effort and + cough; no labored breathing Auscultation: no crackles, no rales and no rhonchi Cardiovascular: RRR, no murmur, no edema Gastrointestinal (Abdomen): normal bowel sounds, soft, nontender, no hepatosplenomegaly Psychiatric: A+Ox3, euthymic affect Results & Data ([facility]) Vital Signs (Past 12 Hours) Vital Signs Temp Pulse Pulse Resp BP Pulse Ox 09/13/21 07:32 82 09/13/21 07:18 37.2 C 76 18 100/64 93 09/13/21 04:36 37.1 C 75 20 106/70 92 09/12/21 23:22 37.4 C 09/12/21 22:20 85 09/12/21 22:00 38 C H 83 20 115/71 92 Laboratory Results Laboratory Results WBC 11.43 K/uL (4.8-10.8) H 09/13/21 08:14 RBC 4.19 M/uL (4.7-6.1) L 09/13/21 08:14 Hgb 13.3 g/dL (14.0-18.0) L 09/13/21 08:14 Hct 38.4 % (42-52) L 09/13/21 08:14 MCV 91.6 fL (80-100) 09/13/21 08:14 MCH 31.7 pg (25-34) 09/13/21 08:14 MCHC 34.6 g/dL (32-36) 09/13/21 08:14 RDW Std Deviation 43.5 fL (36.4-46.3) 09/13/21 08:14 RDW Coeff of Gagandeep 12.9 % (11.5-14.5) 09/13/21 08:14 Plt Count 302 K/uL (130-400) 09/13/21 08:14 MPV 10.2 fL (7.4-10.4) 09/13/21 08:14 Immature Gran % (Auto) 0.3 % 09/13/21 08:14 Neut % (Auto) 64.4 % 09/13/21 08:14 Lymph % (Auto) 25.7 % 09/13/21 08:14 [place] % (Auto) 8.0 % 09/13/21 08:14 Eos % (Auto) 1.3 % 09/13/21 08:14 Baso % (Auto) 0.3 % 09/13/21 08:14 Neut # (Auto) 7.36 K/uL (1.4-6.5) H 09/13/21 08:14 Lymph # (Auto) 2.94 K/uL (1.2-3.4) 09/13/21 08:14 [place] # (Auto) 0.92 K/uL (0.11-0.59) H 09/13/21 08:14 Eos # (Auto) 0.15 K/uL (0-0.5) 09/13/21 08:14 Baso # (Auto) 0.03 K/uL (0-0.2) 09/13/21 08:14 Immature Gran # (Auto) 0.03 K/uL (0.00-0.02) H 09/13/21 08:14 PT 11.7 Seconds (9.0-12.0) 09/11/21 20:18 INR 1.1 (0.9-1.1) 09/11/21 20:18 APTT 30.0 Seconds (21.0-31.0) 09/11/21 20:18 PTT Ratio 1.1 09/11/21 20:18 Sodium 132 mmol/L (136-145) L 09/13/21 08:14 Potassium 3.7 mmol/L (3.5-5.1) 09/13/21 08:14 Chloride 99 mmol/L (98-107) 09/13/21 08:14 Carbon Dioxide 26 mmol/L (21-32) 09/13/21 08:14 Anion Gap 7 (3-11) 09/13/21 08:14 BUN 11 mg/dl (6-23) 09/13/21 08:14 Creatinine 0.93 mg/dl (0.6-1.4) 09/13/21 08:14 Est Cr Clr Drug Dosing 79.8 ml/min 09/13/21 08:14 Est GFR ( Amer) 96.7 ml/min 09/13/21 08:14 Est GFR (Non-Af Amer) 83.5 ml/min 09/13/21 08:14 BUN/Creatinine Ratio 11.8 (10-20) 09/13/21 08:14 Glucose 116 mg/dl (70-99(Fasting)) H 09/13/21 08:14 Calcium 8.7 mg/dl (8.5-10.1) 09/13/21 08:14 Magnesium 1.9 mg/dl (1.7-2.4) 09/11/21 20:18 Total Bilirubin 0.3 mg/dl (0.2-1.0) 09/11/21 20:18 AST 18 U/L (13-39) 09/11/21 20:18 ALT 20 U/L (7-52) 09/11/21 20:18 Alkaline Phosphatase 89 U/L (34-104) 09/11/21 20:18 Total Protein 6.5 gm/dl (6.0-8.3) 09/11/21 20:18 Albumin 3.7 gm/dl (3.4-5.0) 09/11/21 20:18 Globulin 2.8 gm/dl (2.5-4.0) 09/11/21 20:18 Albumin/Globulin Ratio 1.3 (0.9-2) 09/11/21 20:18 Procalcitonin 0.12 ng/ml (0-0.5) 09/11/21 22:41 SARS-CoV-2, RNA, NAAT NEGATIVE (NEGATIVE) 09/11/21 20:20 Blood Type A Negative 09/11/21 20:47 Antibody Screen NEGATIVE 09/11/21 20:47 Impressions Chest CTA 09/11/21 20:21 CT ANGIOGRAPHY OF THE CHEST, PULMONARY EMBOLUS PROTOCOL CLINICAL HISTORY: hemoptysis, history of lung cancer. COMPARISON STUDY: Chest CT August 19, 2021. PET/CT September 04, 2021. TECHNIQUE: Following IV administration of 120 mL of Optiray, helical axial images of the chest were obtained utilizing the pulmonary embolus protocol. Maximal intensity projections and sagittal and coronal reformats were viewed on an independent 3D workstation. IV contrast was administered without complication. Automated exposure control was utilized for the study. A dose lowering technique was utilized adhering to the principles of ALARA. CT DOSE: 418.46 mGy.cm FINDINGS: Note is again made of an infiltrative left perihilar/suprahilar mass which measures 6.7 x 6.3 cm. This mass results in marked narrowing of the distal left pulmonary artery as well as the left upper and left lower lobe pulmonary arteries. These vessels are markedly attenuated. There is nonopacification of multiple segmental pulmonary arteries within the left lung, most notably within within the left lower lobe. This is likely due to upstream narrowing/occlusion. Emboli would be difficult to completely exclude. No right-sided pulmonary emboli are present. The mass also results in occlusion of left upper lobe bronchus as well as lingular segmental bronchi. Left upper lobe segmental bronchi are opacified. A small left pleural effusion has developed. Interlobular septal thickening within the left upper lobe is noted. The size the heart is normal. There is no pericardial effusion. No thoracic aortic dissection is present. Mild left lower lobe alveolar opacities are noted. Moderate left upper lobe airspace opacity has increased. A 1.3 cm left upper lobe nodule on image 257 is similar to prior PET/CT. Right lung is unremarkable. No suspicious lesions within the visualized bony thorax. Visualized portions of the upper abdomen are unremarkable. IMPRESSION: 1. 6.7 x 6.3 cm left hilar/suprahilar infiltrative mass consistent with primary lung malignancy. This mass results in narrowing of the left pulmonary artery and severe narrowing of the left upper lobe and lower lobe pulmonary arteries. Nonopacification of multiple segmental pulmonary arterial branches within the left lung is likely due to vessel stenosis/occlusion with mixing artifact. Although less likely, emboli could appear similar. No right-sided pulmonary emboli. 2. Occlusion of the left upper lobe bronchus. Increase in left upper lobe airspace opacity which favors post obstructive pneumonia. Although less likely, pulmonary infarct could appear similar. Mild left lower lobe airspace opacities which favor an infectious process. 3. Interval development of a small left pleural effusion. 4. No change in a 1.3 cm left upper lobe nodule which favors a metastasis. ACT 112: Negative or not required by law. Electronically signed by: Stan Link M.D. 09/12/2021 9:19 AM Medications Administered Current Medications Acetaminophen (Acetaminophen 325 Mg Tab) 650 mg PO Q4H PRN PRN Reason: pain/fever Stop: 10/12/21 00:07 Last Admin: 09/12/21 22:09 Dose: 650 mg Documented by: Albuterol (Albuterol Hfa 8 Gm Inhaler) 2 puffs INH Q6H PRN PRN Reason: Shortness Of Breath Or Wheezing Stop: 10/12/21 00:07 Last Admin: 09/12/21 20:09 Dose: 2 puffs Documented by: Amoxicillin/Clavulanate Potassium (Amoxicillin/Clavulanate 875 Mg Tab) 1 tab PO BIDM [facility] Stop: 09/20/21 16:59 Benzonatate (Benzonatate 100 Mg Capsule) 100 mg PO TID [facility] Stop: 10/12/21 08:59 Last Admin: 09/13/21 07:37 Dose: 100 mg Documented by: Flecainide Acetate (Flecainide Acetate 100 Mg Tablet) 100 mg PO Q12H [facility] Stop: 10/12/21 00:29 Last Admin: 09/12/21 22:10 Dose: 100 mg Documented by: Fluticasone Propionate (Fluticasone Propionate Na Spr 16 Gm Btl) 1 sprays NA DAILY JALEESA Stop: 10/12/21 08:59 Last Admin: 09/13/21 07:37 Dose: 1 sprays Documented by: Guaifenesin (Guaifenesin 600 Mg Tabcr) 600 mg PO Q12H PRN PRN Reason: cough Stop: 10/12/21 09:03 Last Admin: 09/13/21 07:37 Dose: 600 mg Documented by: Guaifenesin/Codeine Phosphate (Guaifenesin/Codeine 100mg/10mg 5ml Udc) 5 ml PO Q6 [facility] Stop: 10/12/21 11:14 Last Admin: 09/13/21 05:16 Dose: 5 ml Documented by: Dexamethasone 12 mg/ Sodium (Chloride) 53 mls @ 212 mls/hr IV TODAY@0930 [facility] Stop: 09/13/21 18:00 Last Infusion: 09/13/21 09:46 Dose: Infused Documented by: Fosaprepitant 150 mg/ Sodium (Chloride) 150 mls @ 450 mls/hr IV TODAY@0930 [facility] Stop: 09/13/21 18:00 Last Infusion: 09/13/21 09:46 Dose: Infused Documented by: Carboplatin 660 mg/ Sodium (Chloride) 566 mls @ 1,132 mls/hr IV TODAY@1000 JALEESA; Protocol Stop: 09/13/21 10:29 Palonosetron 0.25 mg/ Syringe 5 mls @ 0.333 mls/min IV TODAY@0930 [facility] Stop: 09/13/21 18:00 Last Admin: 09/13/21 09:24 Dose: 0.333 mls/min Documented by: Etoposide 210 mg/ Sodium (Chloride) 560.5 mls @ 560.5 mls/hr IV TODAY@1030 JALEESA; Protocol Stop: 09/13/21 11:29 Metoprolol Tartrate (Metoprolol Tartrate 50 Mg Tab) 150 mg PO QAM [facility] Stop: 10/12/21 08:59 Last Admin: 09/13/21 07:37 Dose: 150 mg Documented by: Metoprolol Tartrate (Metoprolol Tartrate 100 Mg Tab) 100 mg PO QPM JALEESA Stop: 10/12/21 20:59 Last Admin: 09/12/21 20:04 Dose: 100 mg Documented by: Ondansetron HCl (Ondansetron Inj 2 Mg/Ml 2 Ml Vial) 4 mg IV Q6H PRN PRN Reason: Nausea Stop: 10/12/21 00:07 Pravastatin Sodium (Pravastatin Sod 40 Mg Tab) 40 mg PO QPM JALEESA Stop: 10/12/21 20:59 Last Admin: 09/12/21 20:03 Dose: 40 mg Documented by: Umeclidinium/Vilanterol (Umeclidinium/Vilanterol 62.5/25mcg 7 Puffs/Inhaler) 1 puffs INH DAILY JALEESA Stop: 10/12/21 08:59 Last Admin: 09/13/21 07:37 Dose: 1 puffs Documented by:
[2021-09-13] MEDS: FLECAINIDE ACETATE 100 MG TABLET PO SCH ×2 (12:15→23:22)
--- NOTE | 2021-09-13 15:35 | Pulmonology Progress Note ---
Date of Service September 13, 2021 Assessment & Plan (1) Hemoptysis: Plan: Resolving with the discontinuation of anticoagulation for his atrial fibrillation. Likely secondary to impingement of the pulmonary artery from the lung mass. Chemotherapy will hopefully shrink the tumor and limit any further hemoptysis. If significant hemoptysis seen in the future, can trial nebulized TXA and transferred to the ICU. (2) Small cell lung cancer: Plan: Patient initiated on chemoimmunotherapy this morning. Appreciate medical oncology input. (3) Pulmonary mass: Plan: Follow-up imaging deferred to oncology as an outpatient. Reasonable to continue with empiric antibiotics for a total of 5-7 days. Agree with switching the patient to Augmentin for postobstructive pneumonia. (4) Paroxysmal atrial fibrillation: Plan: Would recommend holding aspirin and Xarelto at this time given the severity of hemoptysis on admission. (5) Chronic cough: Plan: Recommend attempting to suppress the cough as much as possible in this acute phase with inhalers, Tessalon Perles and codeine if necessary. Plan: Thank you for the consultation. Please call with questions. Pulmonary will sign off. Admission and Anticipated Discharge Date Admission Date: September 11, 2021 Subjective Patient tolerated his first chemotherapy today. He has an ultrasound-guided IV in place. He denies any significant hemoptysis this afternoon. His hemoptysis is improved substantially throughout the course of the day. He did have some shortness of breath last night and required an albuterol neb. Review of Systems Review of Systems: All systems reviewed & are unremarkable except as noted in HPI & below Physical Exam Constitutional: WD/WN, vitals as above ENMT: external ear and nose normal, oropharynx normal Neck: trachea midline, no thyromegaly Respiratory: normal respiratory effort, lungs clear to auscultation Cardiovascular: RRR, no murmur, no edema Gastrointestinal (Abdomen): normal bowel sounds, soft, nontender, no hepatosplenomegaly Skin: no rashes, warm and dry Neurologic: PERRL, EOMI, accommodation nl, no face palsy, no dysarthria Psychiatric: A+Ox3, euthymic affect Results & Data Results & Data ([facility]) Vital Signs (Past 12 Hours) Vital Signs Temp Pulse Pulse Resp BP BP Pulse Ox 09/13/21 15:21 77 09/13/21 14:48 37 C 79 18 117/74 92 09/13/21 12:21 36.9 C 75 18 110/71 92 09/13/21 11:47 37 C 70 18 108/67 94 09/13/21 11:10 37.1 C 70 18 99/63 L 94 09/13/21 10:51 37.0 C 71 16 100/63 93 09/13/21 10:30 37.1 C 72 18 110/71 94 09/13/21 07:32 82 09/13/21 07:18 37.2 C 76 18 100/64 93 09/13/21 04:36 37.1 C 75 20 106/70 92 PG Care Time/CCT Total # of Minutes Spent Total Time Spent with Patient: Total time spent is greater than 50% in coordination of care (as documented) at patient's floor/unit and/or counseling patient: Coding Level of Care Code 97665 Subseq Hosp Care Lvl 2 Diagnoses Hemoptysis R04.2 Small cell lung cancer C34.90 Pulmonary mass R91.8 Paroxysmal atrial fibrillation I48.0 Chronic cough R05.3
--- NOTE | 2021-09-13 17:24 | Progress Notes ---
DATE OF NOTE: 09/13/2021. IMPRESSION: 1. Small cell lung cancer. 2. Cough with hemoptysis. 3. Postobstructive pneumonia. SUBJECTIVE: He received cycle carboplatin/etoposide today. He states that treatment went well. He denies nausea, vomiting. Also denies chest pain, cough and hemoptysis. REVIEW OF SYSTEMS: Unremarkable. PHYSICAL EXAMINATION: VITAL SIGNS: Blood pressure 117/74, heart rate 77, respiratory rate 18, temperature 37, oxygen satur ation 92% on room air. RESPIRATORY: Decreased air entry bilaterally. CARDIOVASCULAR: Heart was regular rate and rhythm without significant murmur. GASTROINTESTINAL: The abdomen is soft with normal bowel sounds. EXTREMITIES: No edema bilaterally. LABORATORY TESTING: CBC on 09/13/2021, significant for white count of 11,000, hemoglobin 13.3, hemato crit 38.4, platelet count 302,000. Chemistry significant for sodium of 132, potassium 3.7, chloride 99, bicarbonate 26, calcium 8.7. ASSESSMENT: Pleasant gentleman with extensive-stage small cell lung cancer who is status post cycle #1 day 1 of treatment with carboplatin/etoposide today. He will receive cycle #1 day 2 of etoposide 100 mg/m2 tomorrow and will receive cycle #1 day 3 of etoposide on Saturday. He will need G-CSF with f ilgrastim 480 mcg on Saturday and Saturday prior to discharge from hospital. Would recommend Compazine 10 mg q. 8h. or Zofran 8 mg q.8h. as needed for nausea. Please continue checking daily CBC, CMP and magnesium while on chemotherapy. Oncology will continue following the patient while in the hospital . Please feel free to call if you have any questions. Job ID: [id number]
[2021-09-13] MEDS: AMOXICILLIN/CLAVULANATE 875 MG TAB PO SCH (17:27)
[2021-09-13] MEDS: PRAVASTATIN SOD 40 MG TAB PO SCH (20:45)
[2021-09-13] MEDS: METOPROLOL TARTRATE 100 MG TAB PO SCH (20:47)
[2021-09-14] MEDS: guaiFENesin/CODEINE 100MG/10MG 5ML UDC PO SCH ×4 (05:20→23:07)
[2021-09-14] MEDS: FLUTICASONE PROPIONATE NA SPR 16 GM BTL SCH (08:00)
[2021-09-14] MEDS: AMOXICILLIN/CLAVULANATE 875 MG TAB PO SCH ×2 (08:00→17:12)
[2021-09-14] MEDS: BENZONATATE 100 MG CAPSULE PO SCH ×3 (08:00→21:42)
[2021-09-14] MEDS: UMECLIDINIUM/VILANTEROL 62.5/25MCG 7 PUFFS/INHALER INH SCH (08:01)
[2021-09-14] MEDS: METOPROLOL TARTRATE 50 MG TAB PO SCH (08:01)
[2021-09-14 09:06] LABS: Basophils # (auto) 0.01 K/uL (0-0.2); Basophils % (auto) 0.1 %; Hematocrit (blood only) 39.1 % (42-52); Hemoglobin 13.7 g/dL (14.0-18.0); Immature Granulocytes # (auto) 0.05 K/uL (0.00-0.02); Immature Granulocytes % (auto) 0.3 %; Lymphocytes # (auto) 1.95 K/uL (1.2-3.4); Lymphocytes % (auto) 10.6 %; Mean Corpuscular Hemoglobin 31.5 pg (25-34); Mean Corpuscular Volume 89.9 fL (80-100); Mean Platelet Volume 10.1 fL (7.4-10.4); Monocytes # (auto) 0.52 K/uL (0.11-0.59); Monocytes % (auto) 2.8 %; Neutrophils # (auto) 15.78 K/uL (1.4-6.5); Neutrophils % (auto) 86.2 %; Platelet Count 345 K/uL (130-400); RDW Coefficient of Variation 12.8 % (11.5-14.5); RDW Standard Deviation 42.2 fL (36.4-46.3); Red Blood Count 4.35 M/uL (4.7-6.1); White Blood Count 18.31 K/uL (4.8-10.8)
--- NOTE | 2021-09-14 09:21 | Hospitalist Progress Note ---
Date of Service September 14, 2021 Assessment & Plan (1) Hemoptysis: Plan: Mr. 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 He has had a few recurrent episodes of hemoptysis since arrival at ED. Was started on Zosyn empirically. -Likely related to his SSC dx -CTA with evidence of artery impingement by lung mass -normal coagulation studies, ~normal Hg 13.4 -patient to start chemotherapy regimen during hospital stay per heme-onc , awaiting official recommendations -CBC qA Pulmonology consult appreciated: -deescalate Zosyn to Augmentin for pneumonia, see below -Guaifenesin/codeine to suppress cough -continue to hold ASA and Xarelto (2) Abnormal chest CT: Plan: -Post obstructive PNA more likley than COPD exacerbation -O2 sat 96% on RA -CTA with evidence of occlusion of left upper lobe bronchus and increase in airspace opacity -negative procal -White blood cell count increased to 18.31 likely secondary to chemotherapy -blood cultures negative -deescalate from Zosyn to Augmentin treat for 5 days, today is day 2 of Augmentin therapy. (3) Small cell lung cancer: Plan: Patient with newly diagnosed small cell lung cancer with metastatic lesions to brain and possibly adrenals -Oncology consultation appreciated -patient to start chemotherapy regimen during hospital stay, received first dose of chemotherapy yesterday, tolerated well, receiving second dose of first cycle today, followed by third dose of first cycle tomorrow. See oncology note for further details. -Brain radiation following systemic chemotherapy as an outpatient per oncology (4) Paroxysmal atrial fibrillation: Plan: -Continue Flecainide 100mg po BID -Continue Metoprolol -continue to hold Xarelto in setting of hemoptysis (5) COPD with emphysema: Plan: expiratory wheezing on exam. O2 96% on RA -Continue Anoro daily, Albuterol PRN -Continue Mucinex DM -Continue Flonase (6) Hyperlipemia: Plan: Chronic -Continue Pravastatin (7) Hyponatremia: Plan: 134 on admission. 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 -134 this AM after receiving 3 normal saline boluses -expected to correct with feeding pt -repeat BMP qAM Plan: Diet: regular Code: DNR/DNI DVT Ppx - SCDs, continue to hold Xarelto, ASA in the setting of hemoptysis Admission and Anticipated Discharge Date Admission Date: September 11, 2021 Supervising Physician Co-Signing Physician Notes I also saw the patient with the resident physician and medical student and confirmed foreman portions of the history and the physical examination.I agree with impression plan as noted in resident documentation. Upon our bedside exam midmorning, he has no complaints. He was pleasantly surprised that he tolerated chemotherapy yesterday without any side effects. He is scheduled for day two today. Exam 114/72, 67, 20, 36.6, 93% on room air Pleasant. No distress appreciated. Heart regular Lung sounds surprisingly clear, and symmetrical. Data WBC 18.31, hemoglobin 13.7. Sodium 134, potassium 3.7, BUN 15, creatinine 0.73 Hemoptysis Small cell lung cancer Appreciate pulmonology and oncology consultation Holding aspirin and Xarelto Continue chemotherapy today, cycle 1, day 2 Paroxysmal atrial fibrillation Continue metoprolol and flecainide Off anticoagulation secondary to hemoptysis COPD without exacerbation Continue home inhaled medications Else see resident documentation as noted. Subjective Patient seen at bedside this morning. No acute events reported overnight. Patient tolerated chemotherapy day 1 of first cycle very well yesterday. Denies having any nausea, diarrhea, incontinence, chest pain, or shortness of breath. Patient overall feels very well and is optimistic to receive second round of chemotherapy today. Patient denies having any questions or complaints at this morning's interview. Nothing new to report. Review of Systems Review of Systems: All systems reviewed & are unremarkable except as noted in HPI & below Physical Exam Constitutional: WD/WN, vitals as above no acute distress ENMT: external ear and nose normal, oropharynx normal Neck: trachea midline, no thyromegaly Respiratory: normal respiratory effort, lungs clear to auscultation normal respiratory effort and + cough; no labored breathing Auscultation: + wheezes (expiratoy ); no crackles, no rales and no rhonchi Cardiovascular: RRR, no murmur, no edema Gastrointestinal (Abdomen): normal bowel sounds, soft, nontender, no hepatosplenomegaly Skin: no rashes, warm and dry Neurologic: PERRL, EOMI, accommodation nl, no face palsy, no dysarthria Psychiatric: A+Ox3, euthymic affect Results & Data Results & Data ([facility]) Vital Signs (Past 12 Hours) Vital Signs Temp Pulse Pulse Resp BP Pulse Ox 09/14/21 07:00 36.6 C 72 18 107/65 92 09/14/21 06:13 63 09/14/21 03:00 36.7 C 71 20 104/68 97 09/13/21 22:39 36.9 C 71 18 106/65 92 09/13/21 22:20 85
[2021-09-14] MEDS: dexAMETHasone 4 MG TAB PO SCH (10:07)
[2021-09-14] MEDS: ETOPOSIDE IV SCH (10:37)
[2021-09-14] MEDS: SOD CHL IV SCH (10:37)
[2021-09-14] MEDS: POLYOLEFIN IV SCH (10:37)
[2021-09-14 10:41] LABS: BUN Creatinine Ratio 20.5 (10-20); Calcium 8.9 mg/dl (8.5-10.1); Creatinine Clr Calc Pharmacy 101.7 ml/min; Est GFR (African American) 109.7 ml/min; Est GFR (Non-African American) 94.6 ml/min; Potassium 3.7 mmol/L (3.5-5.1)
[2021-09-14 10:45] LABS: Albumin Globulin Ratio 1.1 (0.9-2); Albumin Level 3.6 gm/dl (3.4-5.0); Bilirubin,Total 0.4 mg/dl (0.2-1.0); Globulin 3.3 gm/dl (2.5-4.0); Magnesium 2.3 mg/dl (1.7-2.4); Phosphorus 2.7 mg/dl (2.5-4.9); Total Protein 6.9 gm/dl (6.0-8.3)
[2021-09-14] MEDS: FLECAINIDE ACETATE 100 MG TABLET PO SCH ×2 (11:24→23:07)
[2021-09-14] MEDS ORDERED: ONDANSETRON INJ 2 MG/ML 2 ML VIAL IV PRN (13:49)
[2021-09-14] MEDS: POLYETHYLENE (MIRALAX) 17 GM PACK PO PRN (17:12)
[2021-09-14] MEDS: PRAVASTATIN SOD 40 MG TAB PO SCH (21:42)
[2021-09-14] MEDS: METOPROLOL TARTRATE 100 MG TAB PO SCH (21:42)
[2021-09-15] MEDS: guaiFENesin/CODEINE 100MG/10MG 5ML UDC PO SCH ×4 (05:13→23:06)
--- NOTE | 2021-09-15 06:36 | Hospitalist Progress Note ---
Date of Service September 15, 2021 Assessment & Plan (1) Small cell lung cancer: Plan: Mr. 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 He has had a few recurrent episodes of hemoptysis since arrival at ED. Was started on Zosyn empirically. Patient with newly diagnosed small cell lung cancer with metastatic lesions to brain and possibly adrenals -Oncology consultation appreciated -patient to start chemotherapy regimen during hospital stay, received first dose of chemotherapy 09/13, tolerated well, receiving second dose of first cycle 09/14, followed by third dose of first cycle 09/15. See oncology note for further details. -Brain radiation following systemic chemotherapy as an outpatient per oncology -Daily CBC, CMP, phosphorus, magnesium (2) Hemoptysis: Plan: -improved -Likely related to his SSC dx -CTA with evidence of artery impingement by lung mass -normal coagulation studies, ~normal Hg 13.4 -patient to start chemotherapy regimen during hospital stay per heme-onc -CBC qAM Pulmonology consult appreciated: -deescalate Zosyn to Augmentin for pneumonia, see below -Guaifenesin/codeine to suppress cough -continue to hold ASA and Xarelto (3) Abnormal chest CT: Plan: -Post obstructive PNA more likley than COPD exacerbation -O2 sat 96% on RA -CTA with evidence of occlusion of left upper lobe bronchus and increase in airspace opacity -negative procal -White blood cell count increased to 18.32 likely secondary to chemotherapy -blood cultures negative -deescalate from Zosyn to Augmentin. Today is day 4 of antibiotic therapy, once patient finishes Augmentin doses tomorrow, Augmentin can be discontinued. (4) Hyponatremia: Plan: -134 on admission. 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 O2 96% on RA -Continue Anoro daily, Albuterol PRN -Continue Mucinex DM -Continue Flonase (7) Hyperlipemia: Plan: Chronic -Continue Pravastatin Plan: Diet: regular Code: DNR/DNI DVT Ppx - SCDs, continue to hold Xarelto, ASA in the setting of hemoptysis Disposition: [facility] with telemetry Admission and Anticipated Discharge Date Admission Date: September 11, 2021 Supervising Physician Co-Signing Physician Notes Patient seen and examined with PGY-1 Dr. Pena. Agree with history, exam findings, assessment and plan of care as outlined. In brief, Mr. Avila 70 year old male with history of COPD (40 pack year smoking), afib with AC Xarelto with recent small cell carcinoma of the lung with brain mets admitted with hemoptysis. Feels well. Cough has lessened and has not had any more hemoptysis. No shortness of breath or chest pain. VS and nursing notes reviewed. Well appearing, non-toxic. Heart with regular rate and rhythm. Lungs are clear to auscultation. Labs and imaging reviewed. 1. Hemoptysis. Resolved. Likely related to lung cancer. CTA with evidence of arterial impingement by the lung mass. Appreciate pulm recommendations. Holding ASA and Xarelto. Suppress cough with Tessalon, inhalers, and codeine. 2. Post-obstructive pneumonia. De-escalate antibiotics from Zosyn to Augmentin. Tomorrow is last day of antibiotics. 3. Small cell lung cancer. Started chemo here. Monitor blood count. 4. Leukocytosis. Secondary to recent chemodiscussed with Dr. Miller previously. 5. pAF. Continue flecainide 100mg BID, metoprolol. Holding anticoagulation for now due to bleed. 6. COPD with emphysema. On room air. Continue Anoro, albuterol, Mucinex. 7. Hyponatremia. Stable. 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 Dispo: pending completion of first round of chemotherapy. Likely discharge Saturday morning. Subjective Patient seen at bedside this morning. No acute events reported overnight. Patient received second day of first course of chemotherapy and is to receive the third day of her first course today. Patient continues to feel well and denies having any fever, chills, nausea, or vomiting. Reports that his cough has improved significantly over the past 24 hours. No other complaints at this time. Review of Systems Review of Systems: All systems reviewed & are unremarkable except as noted in HPI & below Physical Exam Constitutional: WD/WN, vitals as above no acute distress ENMT: external ear and nose normal, oropharynx normal Neck: trachea midline, no thyromegaly Respiratory: normal respiratory effort, lungs clear to auscultation normal respiratory effort and + cough; no labored breathing Auscultation: + wheezes (expiratoy ); no crackles, no rales and no rhonchi Cardiovascular: RRR, no murmur, no edema Gastrointestinal (Abdomen): normal bowel sounds, soft, nontender, no hepatosplenomegaly Skin: no rashes, warm and dry Neurologic: PERRL, EOMI, accommodation nl, no face palsy, no dysarthria Psychiatric: A+Ox3, euthymic affect Results & Data Results & Data ([facility]) Vital Signs (Past 12 Hours) Vital Signs Temp Pulse Pulse Resp BP Pulse Ox 09/15/21 03:00 36.8 C 62 20 105/67 93 09/14/21 23:04 36.8 C 64 18 117/67 92 09/14/21 22:20 63
[2021-09-15 08:14] LABS: Hemoglobin 13.2 g/dL (14.0-18.0); Mean Corpuscular Hemoglobin 31.6 pg (25-34); Mean Corpuscular Hgb Conc 34.7 g/dL (32-36); Mean Corpuscular Volume 90.9 fL (80-100); Mean Platelet Volume 10.1 fL (7.4-10.4); Platelet Count 347 K/uL (130-400); RDW Standard Deviation 43.4 fL (36.4-46.3); Red Blood Count 4.18 M/uL (4.7-6.1); White Blood Count 18.32 K/uL (4.8-10.8)
[2021-09-15 08:32] LABS: Albumin Globulin Ratio 1.1 (0.9-2); Albumin Level 3.3 gm/dl (3.4-5.0); BUN Creatinine Ratio 24.7 (10-20); Bilirubin,Total 0.4 mg/dl (0.2-1.0); Calcium 8.8 mg/dl (8.5-10.1); Creatinine Clr Calc Pharmacy 96.4 ml/min; Est GFR (African American) 107.3 ml/min; Est GFR (Non-African American) 92.6 ml/min; Globulin 3.1 gm/dl (2.5-4.0); Magnesium 2.3 mg/dl (1.7-2.4); Phosphorus 3.1 mg/dl (2.5-4.9); Potassium 4.3 mmol/L (3.5-5.1); Total Protein 6.4 gm/dl (6.0-8.3)
[2021-09-15] MEDS: guaiFENesin 600 MG TABCR PO PRN ×2 (09:05→23:02)
[2021-09-15] MEDS: AMOXICILLIN/CLAVULANATE 875 MG TAB PO SCH ×2 (09:05→18:45)
[2021-09-15] MEDS: METOPROLOL TARTRATE 50 MG TAB PO SCH (09:06)
[2021-09-15] MEDS: FLUTICASONE PROPIONATE NA SPR 16 GM BTL SCH (09:06)
[2021-09-15] MEDS: BENZONATATE 100 MG CAPSULE PO SCH ×3 (09:11→20:56)
[2021-09-15] MEDS ORDERED: PALONOSETRON 0.25 MG in SYRINGE 0 ML IV SCH (09:30)
[2021-09-15] MEDS: UMECLIDINIUM/VILANTEROL 62.5/25MCG 7 PUFFS/INHALER INH SCH (10:30)
[2021-09-15] MEDS: dexAMETHasone 4 MG TAB PO SCH (10:30)
[2021-09-15] MEDS: SOD CHL IV SCH (11:16)
[2021-09-15] MEDS: POLYOLEFIN IV SCH (11:16)
[2021-09-15] MEDS: ETOPOSIDE IV SCH (11:16)
[2021-09-15] MEDS: FLECAINIDE ACETATE 100 MG TABLET PO SCH ×2 (12:41→23:03)
[2021-09-15] MEDS: POLYETHYLENE (MIRALAX) 17 GM PACK PO PRN (13:31)
[2021-09-15] MEDS: METOPROLOL TARTRATE 100 MG TAB PO SCH (20:55)
[2021-09-15] MEDS: PRAVASTATIN SOD 40 MG TAB PO SCH (20:55)
[2021-09-16] MEDS: guaiFENesin/CODEINE 100MG/10MG 5ML UDC PO SCH ×4 (05:25→23:11)
[2021-09-16 07:57] LABS: Basophils # (auto) 0.01 K/uL (0-0.2); Basophils % (auto) 0.1 %; Eosinophils # (auto) 0.01 K/uL (0-0.5); Eosinophils % (auto) 0.1 %; Hematocrit (blood only) 37.2 % (42-52); Immature Granulocytes # (auto) 0.02 K/uL (0.00-0.02); Immature Granulocytes % (auto) 0.2 %; Lymphocytes # (auto) 1.75 K/uL (1.2-3.4); Lymphocytes % (auto) 14.5 %; Mean Corpuscular Hemoglobin 31.7 pg (25-34); Mean Corpuscular Hgb Conc 34.9 g/dL (32-36); Mean Corpuscular Volume 90.7 fL (80-100); Mean Platelet Volume 10.2 fL (7.4-10.4); Monocytes # (auto) 0.21 K/uL (0.11-0.59); Monocytes % (auto) 1.7 %; Neutrophils # (auto) 10.07 K/uL (1.4-6.5); Neutrophils % (auto) 83.4 %; Platelet Count 351 K/uL (130-400); RDW Standard Deviation 43.4 fL (36.4-46.3); White Blood Count 12.07 K/uL (4.8-10.8)
[2021-09-16 08:29] LABS: Albumin Globulin Ratio 1.2 (0.9-2); Albumin Level 3.5 gm/dl (3.4-5.0); BUN Creatinine Ratio 26.6 (10-20); Bilirubin,Total 0.5 mg/dl (0.2-1.0); Calcium 8.9 mg/dl (8.5-10.1); Est GFR (African American) 106.2 ml/min; Est GFR (Non-African American) 91.6 ml/min; Magnesium 2.4 mg/dl (1.7-2.4); Potassium 4.3 mmol/L (3.5-5.1); Total Protein 6.5 gm/dl (6.0-8.3)
--- NOTE | 2021-09-16 09:06 | Hospitalist Progress Note ---
Date of Service September 16, 2021 Assessment & Plan (1) Small cell lung cancer: Plan: Mr. 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 He has had a few recurrent episodes of hemoptysis since arrival at ED. Was started on Zosyn empirically. Patient with newly diagnosed small cell lung cancer with metastatic lesions to brain and possibly adrenals -Oncology consultation appreciated -First cycle of chemotherapy completed 09/13-09/15, receiving G-CSF today and tomorrow -Will receive radiation following systemic chemotherapy as an outpatient per oncology. Cancer Center appt on 09/19 -Daily CBC, CMP, phosphorus, magnesium -Labs reassuring at present with expected WBC reduction with chemotherapy- continue trending (2) Hemoptysis: Plan: -Resolved. Was likely related to his SSC dx -CTA with evidence of artery impingement by lung mass -normal coagulation studies, ~Hgb 13.0 and stable, Plts slight increase 347 to 351 -Daily CBC -Guaifenesin/codeine for cough suppression (3) Abnormal chest CT: Plan: Post-obstructive PNA -Post obstructive PNA more likely than COPD exacerbation -O2 sat 94% on RA -CTA with evidence of occlusion of left upper lobe bronchus and increase in airspace opacity -Negative procalcitonin, BCx neg -WBC downtrending 18->12 -Treated with Zosyn -> Augmentin, 5 days of abx completed on 09/16 (4) Hyponatremia: Plan: -134 on admission- possible SIADH in the setting of SCC -134 this AM, asymptomatic -Trend CMP -If Na drops below 130 or patient becomes symptomatic, consider fluid restriction to 1500 cc daily for treatment (5) Paroxysmal atrial fibrillation: Plan: -Continue fleicanide and metoprolol -Currently rate controlled, sinus -Discussed anticoagulation with oncologist- as patient's hemoptysis has resolved and pt's Hgb/Plts normal, we will restart his aspirin and Xarelto today (6) Constipation: Plan: -Last BM 09/11 -Ordered bowel regimen- Miralax BID, Senna daily, Colace. Also encouraged ambulation and fluid intake -Currently no abdominal pain or nausea- will pursue KUB if this develops (7) COPD with emphysema: Plan: clear lungs on exam. O2 94% on RA -Continue Anoro daily, Albuterol PRN -Continue Mucinex DM -Continue Flonase (8) Hyperlipemia: Plan: Chronic -Continue pravastatin Plan: Diet: regular Code: DNR/DNI DVT Ppx - SCDs, restarting Xarelto, ASA Disposition: [facility] with telemetry Admission and Anticipated Discharge Date Admission Date: September 11, 2021 Supervising Physician Co-Signing Physician Notes Patient seen and examined with PGY-1 Dr. Oseguera. Agree with history, exam findings, assessment and plan of care as outlined. In brief, Mr. Avila 70 year old male with history of COPD (40 pack year smoking), afib with AC Xarelto with recent small cell carcinoma of the lung with brain mets admitted with hemoptysis. Feels well. No cough. No hemoptysis. VS and nursing notes reviewed. Well appearing, non-toxic. Labs and imaging reviewed. 1. Hemoptysis. Resolved. Likely related to lung cancer. CTA with evidence of arterial impingement by the lung mass. Appreciate pulm recommendations. Held ASA and Xarelto initially, but now that bleeding has stopped, can restart. Suppress cough with Tessalon, inhalers, and codeine. 2. Post-obstructive pneumonia. De-escalate antibiotics from Zosyn to Augmentin. Today is last day of antibiotics. 3. Small cell lung cancer. Started chemo here. Monitor blood count. Start neupogen today, second dose tomorrow (Saturday) 4. Leukocytosis. Secondary to recent chemodiscussed with Dr. Miller previously. 5. pAF. Continue flecainide 100mg BID, metoprolol. Restarting ASA and Eliquis. 6. COPD with emphysema. On room air. Continue Anoro, albuterol, Mucinex. 7. Hyponatremia. Stable. 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 Dispo: Medically stable. Plan for discharge on Saturday morning after second neupogen dose. Subjective No acute events overnight. Telemetry revealed pt was in sinus rhythm in 50s-60s. On evaluation, he reports feeling well, denies further cough and hemoptysis, no chest pain, fever, chills, dyspnea. Does note he's been constipated and last BM was 5/16 despite taking laxatives over past few days. Denies abdominal pain, nausea. Looking forward to going home tomorrow. Review of Systems Review of Systems: Per Subjective Physical Exam Constitutional: WD/WN, vitals as above no acute distress ENMT: external ear and nose normal, oropharynx normal Neck: trachea midline, no thyromegaly Respiratory: normal respiratory effort, lungs clear to auscultation normal respiratory effort; no labored breathing Auscultation: lungs clear to auscultation bilaterally; no crackles and no wheezes Cardiovascular: RRR, no murmur, no edema Skin: no rashes, warm and dry Results & Data Results & Data ([facility]) Vital Signs (Past 12 Hours) Vital Signs Temp Pulse Pulse Resp BP Pulse Ox 09/16/21 07:43 54 L 09/16/21 07:15 36.8 C 59 L 113/66 94 09/16/21 03:31 36.7 C 63 18 107/67 92 09/15/21 23:03 36.8 C 61 18 110/63 92 09/15/21 22:19 56 L Resident Activity Tracking Resident Involvement: Resident Care Provided Care Provided: Adult Hospital Medicine
[2021-09-16] MEDS: METOPROLOL TARTRATE 50 MG TAB PO SCH (09:08)
[2021-09-16] MEDS: guaiFENesin 600 MG TABCR PO PRN (09:08)
[2021-09-16] MEDS: UMECLIDINIUM/VILANTEROL 62.5/25MCG 7 PUFFS/INHALER INH SCH (09:09)
[2021-09-16] MEDS: AMOXICILLIN/CLAVULANATE 875 MG TAB PO SCH ×2 (09:09→18:26)
[2021-09-16] MEDS: FLUTICASONE PROPIONATE NA SPR 16 GM BTL SCH (09:09)
[2021-09-16] MEDS: ATORVASTATIN 40 MG TAB PO SCH (09:17)
[2021-09-16] MEDS: BENZONATATE 100 MG CAPSULE PO SCH ×3 (09:17→20:49)
[2021-09-16] MEDS ORDERED: DOCUSATE SODIUM 100 MG CAP PO ONE (10:28)
[2021-09-16] MEDS: FILGRASTIM 480 MCG/1.6 ML VIAL SC SCH (10:39)
[2021-09-16] MEDS: ASPIRIN 81 MG ECTAB PO SCH (13:16)
[2021-09-16] MEDS: POLYETHYLENE (MIRALAX) 17 GM PACK PO SCH ×2 (13:17→20:50)
[2021-09-16] MEDS: FLECAINIDE ACETATE 100 MG TABLET PO SCH ×2 (13:18→22:42)
[2021-09-16] MEDS: RIVAROXABAN 20 MG TAB PO SCH (13:18)
[2021-09-16] MEDS: SENNA 8.6 MG TAB PO SCH (13:18)
[2021-09-16] MEDS: METOPROLOL TARTRATE 100 MG TAB PO SCH (20:49)
[2021-09-17] MEDS: guaiFENesin/CODEINE 100MG/10MG 5ML UDC PO SCH ×2 (05:31→05:40)
[2021-09-17] MEDS: ACETAMINOPHEN 325 MG TAB PO PRN (05:40)
[2021-09-17 07:33] LABS: Hematocrit (blood only) 39.7 % (42-52); Hemoglobin 14.2 g/dL (14.0-18.0); Mean Corpuscular Hemoglobin 32.6 pg (25-34); Mean Corpuscular Hgb Conc 35.8 g/dL (32-36); Mean Corpuscular Volume 91.1 fL (80-100); Platelet Count 348 K/uL (130-400); RDW Coefficient of Variation 13.1 % (11.5-14.5); RDW Standard Deviation 43.9 fL (36.4-46.3); Red Blood Count 4.36 M/uL (4.7-6.1); White Blood Count 32.41 K/uL (4.8-10.8)
[2021-09-17 07:59] LABS: Albumin Globulin Ratio 1.3 (0.9-2); Albumin Level 3.5 gm/dl (3.4-5.0); BUN Creatinine Ratio 25.3 (10-20); Bilirubin,Total 0.7 mg/dl (0.2-1.0); Calcium 8.7 mg/dl (8.5-10.1); Creatinine Clr Calc Pharmacy 85.3 ml/min; Est GFR (African American) 102.1 ml/min; Est GFR (Non-African American) 88.1 ml/min; Globulin 2.7 gm/dl (2.5-4.0); Magnesium 2.2 mg/dl (1.7-2.4); Potassium 4.5 mmol/L (3.5-5.1); Total Protein 6.2 gm/dl (6.0-8.3)
[2021-09-17 08:03] LABS: Basophils # (auto) 0.03 K/uL (0-0.2); Basophils % (auto) 0.1 %; Eosinophils # (auto) 0.03 K/uL (0-0.5); Eosinophils % (auto) 0.1 %; Immature Granulocytes # (auto) 0.93 K/uL (0.00-0.02); Immature Granulocytes % (auto) 2.9 %; Lymphocytes # (auto) 2.89 K/uL (1.2-3.4); Lymphocytes % (auto) 8.9 %; Monocytes # (auto) 0.13 K/uL (0.11-0.59); Monocytes % (auto) 0.4 %; Neutrophils % (auto) 87.6 %
[2021-09-17] MEDS: ATORVASTATIN 40 MG TAB PO SCH (08:56)
[2021-09-17] MEDS: ASPIRIN 81 MG ECTAB PO SCH (08:56)
[2021-09-17] MEDS: RIVAROXABAN 20 MG TAB PO SCH (08:56)
[2021-09-17] MEDS: UMECLIDINIUM/VILANTEROL 62.5/25MCG 7 PUFFS/INHALER INH SCH (08:57)
[2021-09-17] MEDS: FLUTICASONE PROPIONATE NA SPR 16 GM BTL SCH (08:57)
[2021-09-17] MEDS: BENZONATATE 100 MG CAPSULE PO SCH (09:02)
[2021-09-17] MEDS: FILGRASTIM 480 MCG/1.6 ML VIAL SC SCH (09:02)
[2021-09-17] MEDS: METOPROLOL TARTRATE 50 MG TAB PO SCH (09:03)
[2021-09-17] MEDS: SENNA 8.6 MG TAB PO SCH (09:03)
[2021-09-17] MEDS: POLYETHYLENE (MIRALAX) 17 GM PACK PO SCH (09:03)
--- NOTE | 2021-09-17 09:16 | Discharge Summary ---
Date of Service September 17, 2021 Admission HPI Per Admitting Provider Jah Avila is a 70yo male with history of COPD, paroxysmal atrial fibrillation on Xarelto anticoagulation and HLP. Patient was seen in the ER on 08/19/21 with complaint of fever. CXR and CT Chest obtained during that visit revealed a 6 x 5.9 cm left hilar mass resulting in severe narrowing/occlusion of the JACKIE bronchi as well as mass effect along the central left pulmonary arteries. Findings suspicious for malignancy. Patient had an MRI of the brain obtained on 08/31/21 which revealed a 3mm enhancing nodule within the left cerebellar hemisphere highly suspicious for a metastatic focus as well as a 4mm nonenhancing nodule in the left lateral ventricle. He was seen by Pulmonary on 09/01/21 ad had EBUS with biopsy performed (results pasted below) which revealed small cell carcinoma of the lung. Patient had a PET Scan performed on 09/04/21 which revealed possible adrenal involvement as well. He was seen again by Pulmonary on 09/08/21 and was started on Anoro, PRN Albuterol as well as Mucinex-DM and Flutter valve for his underlying COPD. Patient presents with complaint of hemoptysis. He has a cough productive for clear sputum with occasional blood tinge. This evening he began to cough more severely and reports coughing up copious amounts of bright red blood. He thinks he may have coughed up approximately 1 cup of blood. He felt more short of breath than usual and had some chest pain associated with the cough as well. Patient reports poor appetite as well as 10-15# weight loss over the last several weeks. He also reports occasional dizziness and ataxic gait. He denies fever, chills, abdominal pain, nausea, vomiting, diarrhea or constipation. No additional complaints at this time. ER Course: Tylenol, Zosyn, NSS Admission Exam Per Admitting Provider General: patient resting comfortably, NAD, non-toxic in appearance, AA&O x 4 Skin: warm, dry, intact, no rashes or lesions HEENT: NC/AT, PERRL, EOMI, anicteric sclera, conjunctiva without injection, external ear normal to inspection and nontender, nares patent, moist mucus membranes, dentition intact, no oropharyngeal lesions, neck supple, trachea m idline, no LAD, no thyromegaly, no JVD Heart: +S1/S2, irregularly irregular, no m/r/g Lungs: equal air entry bilaterally, no rales/rhonchi/wheezes Abd: +BS, soft, NT/ND, no masses/organomegaly/ascites Ext: warm, 2+ pulses in UE/LE bilaterally, no clubbing/cyanosis or edema Neuro: nonfocal, patient AA&O x 4, speech intact, no facial droop, moving all extremities on command with equal strength 5/5 Principal Diagnosis Squamous cell carcinoma of the lung Discharge Exam Constitutional WD/WN, vitals as above no acute distress Respiratory normal respiratory effort, lungs clear to auscultation normal respiratory effort; no labored breathing Auscultation: lungs clear to auscultation bilaterally; no crackles and no wheezes Cardiovascular RRR, no murmur, no edema Gastrointestinal (Abdomen) Soft, nontender, nondistended Skin no rashes, warm and dry Discharge Data Allergies Allergy/AdvReac Type Severity Reaction Status Date / Time No Known Allergies Allergy Verified 09/11/21 21:31 Consultations 09/11/21 22:02 ED Decision to Admit Stat 09/12/21 00:08 Consult Oncology Routine Consult Pulmonology Routine 09/12/21 04:40 Consult Radiation Oncology Routine Ordered Studies 09/11/21 20:21 CT angio chest PE protocol Urgent Hospital Course (1) Small cell lung cancer: Mr. 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 He has had a few recurrent episodes of hemoptysis since arrival at ED. Was started on Zosyn empirically. 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 Pt remained clinically stable and afebrile, asymptomatic, suspect this is 2/2 G-CSF -Otherwise labs reassuring at time of discharge (2) Hemoptysis: -Resolved. 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 Also encouraged ambulation and fluid intake -Had spontaneous BM 09/17 (7) COPD with emphysema: -Continued Anoro daily, Albuterol PRN -Continued Mucinex DM -Continued Flonase -Pt did not have any respiratory compromise or distress by time of discharge (8) Hyperlipemia: Chronic -Continued pravastatin Total Time Total Time Spent Total Time Spent (In Minutes): 30 Discharge Plan Discharge Items Patient Disposition: Home - Self-Care Reason For Visit: HEMOPTYSIS Discharge Diagnosis: Lung cancer Activity: Resume your previous activity Non-emergency contact: Primary Care Provider and Oncologist Call non-emergency contact if: you have any medication questions, your symptoms worsen, your pain is worsening and you have a fever Follow-up/Referrals: Jessica Gomes MD [Primary Care Provider] - 09/27/21 11:30 am Diet: Heart Healthy Addtl Attending Provider Instructions: You were admitted to the hospital for coughing up blood, which was eventually determined via imaging studies of the chest/lungs to be likely due to lung cancer. You were treated with chemotherapy while in the hospital as well as medication to maintain your blood cell counts. You will continue chemotherapy cycles following up with outpatient oncology. A discharge summary will be sent to your primary care physician to ensure continuity of care. Please bring this discharge summary with you to your next office appointment so that your provider can review it at that time. Follow-up appointments: Make a follow-up appointment with your PCP within the next week. It is very important that you follow up with them shortly after discharge from the hospital. You have your Cancer Center appointment scheduled for this Tuesday 09/19. Medications: Your medication list has been reviewed and reconciled upon discharge to ensure accuracy and continuity of care. An updated list of all your medications is included with your hospital discharge paperwork. Please review this list closely, and make note of any changes. Take your medications as instructed; do not skip a dose of your medicines. Make sure all of your doctors know every medicine you are taking (including [id number] medicines, vitamins, and supplements). Call your primary care provider before taking any new medicines (including [id number] medicines, vitamins, and supplements), because some of these may interact with your current medications, or may make your symptoms worse. Tell your primary care provider if you cannot afford your medications. CONTACT YOUR PRIMARY CARE PROVIDER if you experience any of the following: Fever Vomiting Lightheadedness Abdominal pain Difficulty following your treatment plan, or difficulty taking medications CALL 911 OR GO TO THE EMERGENCY DEPARTMENT if you experience any of the following: Sudden, severe abdominal pain or nausea/vomiting Severe chest pain, or chest pain that radiates (moves) to your jaw or arm Sudden, severe shortness of breath or difficulty breathing Thank you for allowing us to participate in your care. Pending Studies at Discharge: No Stand-Alone Forms: My [facility] Medications and DC Order Prescriptions: Continued aspirin 81 mg tablet,delayed release (DR/EC) 81 mg PO DAILY Qty: 30 RF: 3 pravastatin 40 mg tablet 40 mg PO QPM Qty: 90 RF: 1 flecainide 100 mg tablet 100 mg PO Q12H Qty: 180 RF: 3 fluticasone propionate [Allergy Relief (fluticasone)] 50 mcg/actuation spray,suspension 1 spray intranasal DAILY Qty: 9.9 RF: 1 Mucinex DM 30-600 mg tablet extended release 12 hr 1 tab PO Q12H PRN (Reason: cough) Qty: 60 RF: 0 albuterol sulfate 90 mcg/actuation HFA aerosol inhaler 2 puff inhalation Q6H PRN (Reason: Shortness Of Breath Or Wheezing) Qty: 18 RF: 3 Anoro Ellipta 62.5-25 mcg/actuation blister with device 1 inh inhalation DAILY Qty: 60 RF: 2 (DME) Flutter Valve Device See Rx Instructions .ROUTE .MEDSUPPLY Qty: 1 RF: 0 multivitamin Tablet 1 tab PO QAM RF: 0 Xarelto 20 mg tablet 20 mg PO QDD RF: 0 metoprolol tartrate 100 mg tablet 150 mg PO QAM RF: 0 metoprolol tartrate 100 mg tablet 100 mg PO QPM RF: 0 Discharge Orders: Discharge Order (Routine); Ordered 09/17/21 Ordered By: Manish Oseguera Admission Data Admit Date/Time: 09/11/21 22:43 Attending Provider: Jose G Juarez Admit Provider: Eva Greene Primary Care Provider: Jessica Gomes Other Providers: Eva Greene ; Guerita Miller ; Noe Adamson ; Donaldo Moore Other Interventions: Discharge Summary Assessment (RN) Last Done: 09/17/21 10:00 Supervising Physician Co-Signing Physician Notes Patient seen and examined with PGY-1 Dr. Oseguera. Agree with history, exam findings, assessment and plan of care as outlined. In brief, Mr. Avila 70 year old male with history of COPD (40 pack year smoking), afib with AC Xarelto with recent small cell carcinoma of the lung with brain mets admitted with hemoptysis. Feels well. No cough. No hemoptysis. VS and nursing notes reviewed. Well appearing, non-toxic. Labs and imaging reviewed. 1. Hemoptysis. Resolved. Likely related to lung cancer. CTA with evidence of arterial impingement by the lung mass. Appreciate pulm recommendations. Held ASA and Xarelto initially, but now that bleeding has stopped, resumed. Suppress cough with Tessalon, inhalers, and codeine. 2. Post-obstructive pneumonia. De-escalate antibiotics from Zosyn to Augmentin. Finished augmentin course in the hospital. 3. Small cell lung cancer. Started chemo here. Monitor blood count. s/p 2 doses of neuopogen (Saturday and Saturday). 4. Leukocytosis. Secondary to recent chemodiscussed with Dr. Miller previously. No signs/symptoms of infection. 5. pAF. Continue flecainide 100mg BID, metoprolol. Restarting ASA and Eliquis. 6. COPD with emphysema. On room air. Continue Anoro, albuterol, Mucinex. 7. Hyponatremia. Stable. 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 Dispo: Medically stable. Discharge home today. I personally spent 25 minutes discharge planning for this patient. Resident Activity Tracking Resident Involvement: Resident Care Provided Care Provided: Adult Hospital Medicine
== END 2021-09-17 10:51 | disposition home or self-care (01) | DRG 180 ==
LOC: ED 19:58 → SUATTDRO 22:43 → 2N 22:43 → 2W 09-12 17:52
DX: I28.8 Other diseases of pulmonary vessels; Z79.899 Other long term (current) drug therapy; Z79.82 Long term (current) use of aspirin; J43.9 Emphysema, unspecified; Z66 Do not resuscitate; R04.2 Hemoptysis; J98.09 Other diseases of bronchus, not elsewhere classified; C79.70 Secondary malignant neoplasm of unspecified adrenal gland; I48.0 Paroxysmal atrial fibrillation; C34.02 Malignant neoplasm of left main bronchus; Z79.01 Long term (current) use of anticoagulants; E87.1 Hypo-osmolality and hyponatremia; Z80.1 Family history of malignant neoplasm of trachea, bronchus and lung; E78.5 Hyperlipidemia, unspecified; J18.8 Other pneumonia, unspecified organism; F17.210 Nicotine dependence, cigarettes, uncomplicated; C79.31 Secondary malignant neoplasm of brain; K59.00 Constipation, unspecified; R05.3 Chronic cough

== ENCOUNTER 2022-05-15 10:54 | Inpatient (IN) ==
[2022-05-15] MEDS ORDERED: ONDANSETRON INJ 2 MG/ML 2 ML VIAL IV STA (11:40)
[2022-05-15] MEDS ORDERED: SODIUM CHLORIDE 0.9% 1000ML 2,000 ML IV SCH (11:45)
--- NOTE | 2022-05-15 11:49 | Emergency Department Note ---
Impression & Plan Weakness, Falls, Diarrhea, Acute dehydration ED Provider Note INFORMANT: Patient ED PROVIDER(S): Brennon Cordoba DO CHIEF COMPLAINT: Falls, generalized weakness, diarrhea, exertional dyspnea PLAN: Disposition: Admission Condition: Stable Outpatient prescription management: none Referral: I spoke with the hospitalist, who will see the patient for admission/observation and further evaluation and consultation. MEDICAL DECISION MAKING: This is a 71-year-old male who presents to the ED with a chief complaint of diarrhea for the past 2-1/2 days. He states that he has had a lot of diarrhea. 10 times yesterday. A few times the day before and several times today. He reports a fall yesterday and a fall today. Did not injure himself but is very weak and having difficulty getting around. He states that he also gets short of breath with exertion. History of lung cancer. He states that his last chemo was on Saturday, 4 days ago. He has 1 week of chemo every third week. He states that he did try some Imodium for the diarrhea. It seems to have helped a littl e. Denies recent antibiotic use. Twelve-lead EKG shows a normal sinus rhythm at a rate of 82. T wave inversions anterolaterally. These appear new compared to an EKG dated September 11, 2021. The patient's CBC showed a pancytopenia with a hemoglobin of 6.7 and a white blood cell count of 1.13. Platelet count was slightly low although within normal limits. His chest x-ray did not show acute process. Troponin did not show any evidence of myocardial ischemia. Chemistry panel did not show any significant electrolyte abnormality. The patient was typed and crossed for 2 units of blood. 1 unit was started in emergency department. The patient will be seen by the hospitalist, who I spoke with. Triage Nursing notes reviewed. Vital Signs: reviewed Prior /Outside records reviewed: none Differential diagnosis: Differential includes acute coronary syndrome, myocardial infarction, anemia, infection, pneumonia, UTI, pyelonephritis, poor nutrition, dehydration, electrolyte disturbance,hypoglycemia. Diagnostics, as interpreted by me: 12 lead ECG: Twelve-lead EKG shows a normal sinus rhythm at a rate of 82. T wave inversions anterolaterally. These appear new compared to an EKG dated September 11, 2021. No PVCs. Normal QTC. Cardiac Monitoring: Sinus rhythm Medical decision rules: none Imaging studies: Chest x-ray: No pneumonia or pneumothorax. Procedures: Blood transfusion Critical care: I have personally spent 35 minutes of critical care time in the direct management of this patient. This includes bedside care, interpretation of diagnostic studies, and testing, discussion with consultants, patient, and family members, and other required patient management activities. This 35 minutes is in excess of all separately billable procedures. HPI: See MDM above. PAST MEDICAL HISTORY: See Below PAST SURGICAL HISTORY: See Below SOCIAL HISTORY: See Below HOME MEDICATIONS: See Below ALLERGIES: See Below VITALS: See Below PHYSICAL EXAMINATION: CONSTITUTIONAL/VITAL SIGNS: Reviewed GENERAL: Non-toxic in appearance. INTEGUMENTARY: Warm, dry, and [place]. HEAD: Normocephalic. EYES: without scleral icterus. ENT/OROPHARYNX: clear and moist. RESPIRATORY: No increased work of breathing. Lungs clear. CARDIOVASCULAR: Regular rate. Regular rhythm. GI/ABDOMEN: Soft and nontender. . EXTREMITIES: Normal NEUROLOGICAL: Intact without focal deficits. PSYCHIATRIC: Normal affect. MUSCULOSKELETAL: Normal. TRIAGE NURSING DOCUMENTATION REVIEWED. Past Med/Surg History Medical History Allergic rhinitis Arthritis Atelectasis of left lung 09/19/21- PT STATES PARTIALLY COLLAPSED Brain metastasis 02/2022 swelling and bleeding found @ [facility] Chronic cough COPD with emphysema Exertional shortness of breath History of back problems Hyperlipemia On anticoagulant therapy XARELTO AND ASA Paroxysmal atrial fibrillation controlled w/ medication, follows w/ Kip Olga last visit 03/2022 Port-A-Cath in place (~10/02/21) Insertion of Access Port with Fluoroscopy(Left) - Koby Ivey DO 10/02/2021 Skin cancer REMOVED FROM LEFT HAND Small cell lung cancer dx 08/19/2021--JACKIE- currently undergoing chemo every third week for 5 days straight on that third week at the cancer care center Surgical History H/O knee surgery LEFT History of colonoscopy History of tooth extraction Hx of tonsillectomy S/P bronchoscopy SEPTEMBER 01, 2021 AT [facility] S/P radiofrequency ablation operation for arrhythmia "UNSUCCESSFUL" 10/01/2017 >FOLLOWS WITH ME CARDIO LAST 07/2021- CURRENTLY S TOPPED XARELTO DUE TO NOSE BLEEDS Family History Father Diabetes Cardiac disorder Myocardial infarction Lung cancer Hypertension Mother Ovarian cancer Dementia Grandmother (Paternal) Diabetes Grandfather (Paternal) Diabetes Denies family history of Prostate cancer Breast cancer Colorectal cancer Social History Smoking Status: Former smoker Tobacco Type: Cigarettes Age Started Using Tobacco: 24; packs per day: 0.5; Cigarettes Per Day: quit ~ 4 mos ago; Second Hand Exposure: No; Hx Alcohol Use: No Hx Substance Use: No Preferred Language: Faroese Communication Ability: Effective Visual Impairment: No Limitations Hearing Ability: Normal Caustic Loader Required: No Beliefs That Will Affect Care: None marital status: Single Current Living Situation: Alone Current Living Situation Comment: FRIENDS TO HELP 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 How many Children do You have: 1 Feels Safe at Home: Yes Childhood Exposure to Second-Hand Smoke: No caffeine: Yes during the past year weight has: remained stable Dental Care, Regularly: No Physical Activity Frequency: 1-2 Times per Week Seatbelt Use: sometimes Sunscreen Use: Yes Gender Identity: Male Assistive Devices: Denture - Upper and Glasses Allergies Allergies Allergy/AdvReac Type Severity Reaction Status Date / Time No Known Allergies Allergy Verified 05/09/22 14:38 Home Meds Home Medications Medication Instructions Recorded Confirmed multivitamin 1 tab PO QAM 10/02/19 05/09/22 fluticasone propionate 50 1 spray intranasal UD PRN SINUS 09/28/21 05/09/22 mcg/actuation nasal CONGESTION spray,suspension (Allergy Relief (fluticasone)) rivaroxaban 20 mg tablet (Xarelto) 20 mg PO DAILY 03/20/22 05/09/22 Previous Rx's Medication Instructions Recorded aspirin 81 mg tablet,delayed 81 mg PO DAILY #30 tabs 05/25/19 release flecainide 100 mg tablet 100 mg PO Q12H #180 tabs 07/19/21 Flutter Valve #1 ea 09/08/21 albuterol sulfate 90 mcg/actuation 2 puff inhalation Q6H PRN 09/08/21 aerosol inhaler Shortness Of Breath Or Wheezing #18 grams dextromethorphan-guaifenesin 30 1 tab PO Q12H PRN cough #60 tabs 09/08/21 mg-600 mg tablet extended [id number] hr (Mucinex DM) metoprolol tartrate 100 mg tablet 100 mg PO .COMPLEX #225 tabs 01/08/22 pravastatin 40 mg tablet 40 mg PO QPM #90 tabs 04/02/22 Results & Data (ED) Vital Signs Vital Signs - 24 hr 05/15/22 11:23 05/15/22 11:59 05/15/22 11:37 Temperature 36.2 C L Temperature Source Temporal Artery Scan Pulse Rate 88 84 84 Pulse Rate from SpO2 Sensor 82 Pulse Rhythm Regular Pulse Strength Respiratory Rate 20 22 20 Respiratory Effort / Characteristics Non-Labored Respiratory Depth Normal Blood Pressure 61/36 L Blood Pressure Mean 44 Blood Pressure Position Pulse Oximetry 97 100 98 Oxygen Delivery Method Room Air Room Air Sepsis Recent Fever Within 48 Hours No Sepsis New/Unexplained Change in Mental Status N/A Sepsis Action Taken by Nursing No Action Required 05/15/22 12:00 05/15/22 13:58 Temperature 39.3 C H Temperature Source Oral Pulse Rate 84 86 Pulse Rate from SpO2 Sensor Pulse Rhythm Regular Pulse Strength Normal Respiratory Rate 20 14 Respiratory Effort / Characteristics Respiratory Depth Blood Pressure 111/57 L 103/62 Blood Pressure Mean 75 75 Blood Pressure Position Lying Pulse Oximetry 99 98 Oxygen Delivery Method Sepsis Recent Fever Within 48 Hours Sepsis New/Unexplained Change in Mental Status Sepsis Action Taken by Nursing Laboratory Data 05/15/22 11:54 05/15/22 11:54 Lab Results 05/15/22 05/15/22 05/15/22 Range/Units 11:54 11:54 11:54 WBC 1.13 L (4.8-10.8) K/ul RBC 2.06 L (4.63-6.08) M/uL Hgb 6.7 L* (14.0-18.0) g/dl Hct 18.8 L* (40.1-51.0) % MCV 91.3 (80.0-100.0) fL MCH 32.5 (25.0-34.0) pg MCHC 35.6 (32.0-36.0) g/dL RDW Std Deviation 48.5 H (36.4-46.3) fL RDW Coeff of Gagandeep 15.8 H (11.5-14.5) % Plt Count 131 (130-400) K/uL MPV 9.3 L (9.4-12.4) fL Immature Gran % (Auto) 0.9 % Neut % (Auto) 18.5 % Lymph % (Auto) 67.3 % [place] % (Auto) 11.5 % Eos % (Auto) 0.0 % Baso % (Auto) 1.8 % Neut # (Auto) 0.21 L* (1.4-6.5) K/uL Lymph # (Auto) 0.76 L (1.2-3.4) K/uL [place] # (Auto) 0.13 L (0.24-0.82) K/uL Eos # (Auto) 0.00 (0-0.50) K/uL Baso # (Auto) 0.02 (0-0.2) K/uL Immature Gran # (Auto) 0.01 (0.00-0.02) K/uL Tear Drop Cells 1+ PT 12.8 H (9.0-12.0) Seconds INR 1.2 H (0.9-1.1) Sodium 134 L (136-145) mmol/L Potassium 3.6 (3.5-5.1) mmol/L Chloride 102 (98-107) mmol/L Carbon Dioxide 26 (21-32) mmol/L Anion Gap 6 (3-11) BUN 22 (6-23) mg/dl Creatinine 1.35 (0.6-1.4) mg/dl Est Cr Clr Drug Dosing 58.8 ml/min Est GFR ( Amer) 61.2 ml/min Est GFR (Non-Af Amer) 52.8 ml/min BUN/Creatinine Ratio 16.3 (10-20) Glucose 114 H (70-99(Fasting)) mg/dl Lactate (0.4-2.0) mmol/L Calcium 8.6 (8.5-10.1) mg/dl Magnesium 2.1 (1.7-2.4) mg/dl Total Bilirubin 1.0 (0.2-1.0) mg/dl AST 10 L (13-39) U/L ALT 10 (7-52) U/L Alkaline Phosphatase 79 (34-104) U/L Total Creatine Kinase 87 (30-223) U/L Troponin I High Sens 7.9 (0-20) pg/ml Total Protein 6.1 (6.0-8.3) gm/dl Albumin 3.4 (3.4-5.0) gm/dl Globulin 2.7 (2.5-4.0) gm/dl Albumin/Globulin Ratio 1.3 (0.9-2) TSH (0.300-4.500) uIu/ml SARS-CoV-2, RNA, NAAT (NEGATIVE) Blood Type Antibody Screen Crossmatch 05/15/22 05/15/22 05/15/22 Range/Units 11:54 11:54 11:56 WBC (4.8-10.8) K/ul RBC (4.63-6.08) M/uL Hgb (14.0-18.0) g/dl Hct (40.1-51.0) % MCV (80.0-100.0) fL MCH (25.0-34.0) pg MCHC (32.0-36.0) g/dL RDW Std Deviation (36.4-46.3) fL RDW Coeff of Gagandeep (11.5-14.5) % Plt Count (130-400) K/uL MPV (9.4-12.4) fL Immature Gran % (Auto) % Neut % (Auto) % Lymph % (Auto) % [place] % (Auto) % Eos % (Auto) % Baso % (Auto) % Neut # (Auto) (1.4-6.5) K/uL Lymph # (Auto) (1.2-3.4) K/uL [place] # (Auto) (0.24-0.82) K/uL Eos # (Auto) (0-0.50) K/uL Baso # (Auto) (0-0.2) K/uL Immature Gran # (Auto) (0.00-0.02) K/uL Tear Drop Cells PT (9.0-12.0) Seconds INR (0.9-1.1) Sodium (136-145) mmol/L Potassium (3.5-5.1) mmol/L Chloride (98-107) mmol/L Carbon Dioxide (21-32) mmol/L Anion Gap (3-11) BUN (6-23) mg/dl Creatinine (0.6-1.4) mg/dl Est Cr Clr Drug Dosing ml/min Est GFR ( Amer) ml/min Est GFR (Non-Af Amer) ml/min BUN/Creatinine Ratio (10-20) Glucose (70-99(Fasting)) mg/dl Lactate 1.1 (0.4-2.0) mmol/L Calcium (8.5-10.1) mg/dl Magnesium (1.7-2.4) mg/dl Total Bilirubin (0.2-1.0) mg/dl AST (13-39) U/L ALT (7-52) U/L Alkaline Phosphatase (34-104) U/L Total Creatine Kinase (30-223) U/L Troponin I High Sens (0-20) pg/ml Total Protein (6.0-8.3) gm/dl Albumin (3.4-5.0) gm/dl Globulin (2.5-4.0) gm/dl Albumin/Globulin Ratio (0.9-2) TSH 2.610 (0.300-4.500) uIu/ml SARS-CoV-2, RNA, NAAT (NEGATIVE) Blood Type A Negative Antibody Screen NEGATIVE Crossmatch See Detail 05/15/22 Range/Units 12:10 WBC (4.8-10.8) K/ul RBC (4.63-6.08) M/uL Hgb (14.0-18.0) g/dl Hct (40.1-51.0) % MCV (80.0-100.0) fL MCH (25.0-34.0) pg MCHC (32.0-36.0) g/dL RDW Std Deviation (36.4-46.3) fL RDW Coeff of Gagandeep (11.5-14.5) % Plt Count (130-400) K/uL MPV (9.4-12.4) fL Immature Gran % (Auto) % Neut % (Auto) % Lymph % (Auto) % [place] % (Auto) % Eos % (Auto) % Baso % (Auto) % Neut # (Auto) (1.4-6.5) K/uL Lymph # (Auto) (1.2-3.4) K/uL [place] # (Auto) (0.24-0.82) K/uL Eos # (Auto) (0-0.50) K/uL Baso # (Auto) (0-0.2) K/uL Immature Gran # (Auto) (0.00-0.02) K/uL Tear Drop Cells PT (9.0-12.0) Seconds INR (0.9-1.1) Sodium (136-145) mmol/L Potassium (3.5-5.1) mmol/L Chloride (98-107) mmol/L Carbon Dioxide (21-32) mmol/L Anion Gap (3-11) BUN (6-23) mg/dl Creatinine (0.6-1.4) mg/dl Est Cr Clr Drug Dosing ml/min Est GFR ( Amer) ml/min Est GFR (Non-Af Amer) ml/min BUN/Creatinine Ratio (10-20) Glucose (70-99(Fasting)) mg/dl Lactate (0.4-2.0) mmol/L Calcium (8.5-10.1) mg/dl Magnesium (1.7-2.4) mg/dl Total Bilirubin (0.2-1.0) mg/dl AST (13-39) U/L ALT (7-52) U/L Alkaline Phosphatase (34-104) U/L Total Creatine Kinase (30-223) U/L Troponin I High Sens (0-20) pg/ml Total Protein (6.0-8.3) gm/dl Albumin (3.4-5.0) gm/dl Globulin (2.5-4.0) gm/dl Albumin/Globulin Ratio (0.9-2) TSH (0.300-4.500) uIu/ml SARS-CoV-2, RNA, NAAT NEGATIVE (NEGATIVE) Blood Type Antibody Screen Crossmatch Administered Medications Discontinued Medications Sodium Chloride (Nss 1000ml) 2,000 mls @ 999 mls/hr IV .Q2H1M JALEESA Stop: 05/15/22 13:45 Last Admin: 05/15/22 12:13 Dose: 999 mls/hr Documented By: AM Imaging Data Radiologist's Impression: Chest X-Ray 05/15/22 11:40 XR chest 1V portable HISTORY: weakness COMPARISON: Chest 10/02/2021. FINDINGS: No pneumothorax. No pleural effusions. The heart is normal in size. Linear density within the left upper lobe has improved and almost completely resolved. Otherwise, lungs are clear. Left subclavian Port-A-Cath terminates in the SVC. There are old, healed right-sided rib fractures. IMPRESSION: Left upper lobe linear scarlike density has improved. Otherwise, no acute pr ocess within the chest. ACT 112: Negative or not required by law. Electronically signed by: Geovanny Fischer M.D. 05/15/2022 12:11 PM Discharge Plan Visit Data Chief Complaint: Fall Stated Complaint: UNABLE TO WALK, FALL, INCONTINET ED Provider: Brennon Cordoba Discharge Problem: Weakness, Falls, Diarrhea, Acute dehydration Patient Disposition: Being Evaluated by Hospitalist Forms Stand Alone Forms: [facility] Prescriptions Prescriptions: No Action Xarelto 20 mg tablet 20 mg PO DAILY Label Comments: on hold as of 03/19/22. plan to resume in future Rx Instructions: must administer with evening meal aspirin 81 mg tablet,delayed release (DR/EC) 81 mg PO DAILY Qty: 30 3RF Label Comments: TAKES IN AM metoprolol tartrate 100 mg tablet 100 mg PO .COMPLEX Qty: 225 3RF Rx Instructions: Take 1.5 tablet in the morning and 1 tablet in the evening. pravastatin 40 mg tablet 40 mg PO QPM Qty: 90 1RF flecainide 100 mg tablet 100 mg PO Q12H Qty: 180 3RF Mucinex DM 30-600 mg tablet extended release 12 hr 1 tab PO Q12H PRN (Reason: cough) Qty: 60 0RF Rx Instructions: Take 1 tab twice daily for 5 days and then as needed albuterol sulfate 90 mcg/actuation HFA aerosol inhaler 2 puff inhalation Q6H PRN (Reason: Shortness Of Breath Or Wheezing) Qty: 18 3RF (DME) Flutter Valve Device See Rx Instructions .ROUTE .MEDSUPPLY Qty: 1 0RF Rx Instructions: Use it every 6 hours when awake. multivitamin Tablet 1 tab PO QAM fluticasone propionate [Allergy Relief (fluticasone)] 50 mcg/actuation spray,suspension 1 spray intranasal UD PRN (Reason: SINUS CONGESTION) Rx Instructions: administer into each nostril once daily Referrals Referrals: Jessica Gomes MD [Primary Care Provider] -
--- NOTE | 2022-05-15 12:12 | XRay Report ---
XR chest 1V portable HISTORY: weakness COMPARISON: Chest 10/02/2021. FINDINGS: No pneumothorax. No pleural effusions. The heart is normal in size. Linear density within t he left upper lobe has improved and almost completely resolved. Otherwise, lungs are clear. Left subc lavian Port-A-Cath terminates in the SVC. There are old, healed right-sided rib fractures. IMPRESSION: Left upper lobe linear scarlike density has improved. Otherwise, no acute process within the chest. ACT 112: Negative or not required by law. Electronically signed by: Geovanny Fischer M.D. 05/15/2022 12:11 PM
[2022-05-15 12:21] LABS: Hematocrit (blood only) 18.8 % (40.1-51.0); Hemoglobin 6.7 g/dl (14.0-18.0); INR 1.2 (0.9-1.1); Mean Corpuscular Hemoglobin 32.5 pg (25.0-34.0); Mean Corpuscular Hgb Conc 35.6 g/dL (32.0-36.0); Mean Corpuscular Volume 91.3 fL (80.0-100.0); Mean Platelet Volume 9.3 fL (9.4-12.4); Platelet Count 131 K/uL (130-400); Prothrombin Time 12.8 Seconds (9.0-12.0); RDW Coefficient of Variation 15.8 % (11.5-14.5); RDW Standard Deviation 48.5 fL (36.4-46.3); Red Blood Count 2.06 M/uL (4.63-6.08); White Blood Count 1.13 K/ul (4.8-10.8)
[2022-05-15] MEDS ORDERED: SODIUM CHLORIDE 0.9% 250 ML IV PRN ×4 (12:25→23:27)
[2022-05-15 12:38] LABS: Albumin Globulin Ratio 1.3 (0.9-2); Albumin Level 3.4 gm/dl (3.4-5.0); BUN Creatinine Ratio 16.3 (10-20); Calcium 8.6 mg/dl (8.5-10.1); Creatinine Clr Calc Pharmacy 58.8 ml/min; Est GFR (African American) 61.2 ml/min; Est GFR (Non-African American) 52.8 ml/min; Globulin 2.7 gm/dl (2.5-4.0); Magnesium 2.1 mg/dl (1.7-2.4); Potassium 3.6 mmol/L (3.5-5.1); Total Protein 6.1 gm/dl (6.0-8.3)
[2022-05-15 12:39] LABS: Troponin I High Sensitivity 7.9 pg/ml (0-20)
[2022-05-15 12:45] LABS: Basophils # (auto) 0.02 K/uL (0-0.2); Basophils % (auto) 1.8 %; Immature Granulocytes # (auto) 0.01 K/uL (0.00-0.02); Immature Granulocytes % (auto) 0.9 %; Lymphocytes # (auto) 0.76 K/uL (1.2-3.4); Lymphocytes % (auto) 67.3 %; Monocytes # (auto) 0.13 K/uL (0.24-0.82); Monocytes % (auto) 11.5 %; Neutrophils # (auto) 0.21 K/uL (1.4-6.5); Neutrophils % (auto) 18.5 %; Tear Drop Cells 1+
--- NOTE | 2022-05-15 13:20 | History & Physical Report ---
Date of Service May 15, 2022 Assessment & Plan (1) Neutropenic fever: Plan: - Initially presented afebrile but severely hypotensive 61/36, received 2L NS and improved to 111/57 but now with a temp of 102F prior to blood transfusion. - Tylenol ordered prior to transfusion and prn. - WBC 1.13, ANC 209, severe nutropenia. - Sources of infection right now possibly skin/soft tissue from port vs GI. Port without erythema or evidence of infection, is having rectal pain, ? if due to hemorrhoid irritation vs proctitis. - Will place empirically on Zosyn and vancomycin for neutropenic fever given potential source is his port. - CT A/P pending. - Hemoccult all stools. ExecNote stool panel plus C. difficile toxin pending. - Lactate 1.1. Procal pending. Blood cultures collected in ED prior to antibiotics. (2) Anemia: Plan: - Hgb 6.7, MCV 91.3. Down from 9.8 weeks ago on 05/04. Baseline over the past 6 months 1213. - Has some BRBPR when wiping but sounds more like hemorrhoids from frequent d iarrhea. - 2 units PRBCs ordered for transfusion. Repeat H/H not improved, no longer with diarrhea, but with soft BPs. Additional 3rd unit ordered with a 4th on standby. - H/H in Am after 3rd unit transfused. - Hemoccult all stools. - Continue alongside RBCs, monitor for signs and symptoms of volume overload. - NPO at midnight, will consult GI, appreciate their recommendations and assistance with this patient. (3) Diarrhea: Plan: - Ongoing for 2.5 days, with 10+ episodes over the past several days. - Hemoccult all stools. ExecNote stool panel plus C. difficile toxin pending. - CTAP--> fluid filled colon c/w a diarrheal illness/gastroenteritis, normal appendix, no bowel wall thickening or obstruction, decrease in size in the bilateral adrenal gland metastases. - Management of neutropenic fever as above. (4) Small cell lung cancer: Plan: - Diagnosed in July, 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 - s/p radiation therapy. - Receives chemo at [facility] 3rd week of every month for 5 days, last chemo was this past Thursday 05/11. - ANC 209, neutropenic precautions. (5) Weakness: Plan: - Secondary to progression of cancer/chemo/diarrhea with acute blood loss. - PT/OT to eval and treat patient while here. - Patient is realistic about the fact that he will likely soon need placement into a facility as caring for himself at home is becoming too difficult. (6) PSVT (paroxysmal supraventricular tachycardia): Plan: - History of. Will be holding metoprolol for the day given hypotension 60s/30s on arrival. - Admitted to PCU bed. (7) Paroxysmal atrial fibrillation: Plan: - Continue flecainide. Holding metoprolol for hypotension. 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 Now with stage 4 lung cancer, worsening SOB likely due to cancer, COPD, and now acute anemia. - SpO2 98% on RA. - Continue home inhalers. Plan - Admit to PCU. - SCDS for VTE ppx, chemoppx deferred given concern for acute blood loss. - DNR/DNI. History of Present Illness Chief Complaint: diarrhea x 2.5 days Primary Care Provider: Jessica Gomes MD Jah Avila is a 71-year-old male with metastatic small cell lung cancer, COPD, a fib, paroxysmal SVT, and hypercholesterolemia who is presenting today with diarrhea for the past 2 days. He has been having 10+ episodes for the past 2 days and has begun falling yesterday and today. He has been able to catch himself, has not hit his head and has no pain anywhere. He feels too weak to care for himself at home and is having rectal pain now from the frequent diarrhea, which has subsided since arrival as he took Imodium before presenting. Last chemo Saturday, 05/11 and also got Neulasta then. He gets chemo every 3 weeks x 5 days On presentation, initially presented with a BP of 61/36, otherwise vital signs within normal limits, received 2 L normal saline at 111/57. Labs notable for white count of 1.13, ANC 209. Hemoglobin 6.7 last checked 10 days ago on 05/04 and was 9.8 then. INR 1.2. Sodium mildly low at 134, otherwise without electrolyte abnormalities, creatinine mildly bumped at 1.35, baseline seems to be 11.2. Lactate is 1.1. Troponin 7.9. COVID-negative. CXR with left upper lobe linear scarlike density which is improved, otherwise no acute process within the chest. Allergies Allergy/AdvReac Type Severity Reaction Status Date / Time No Known Allergies Allergy Verified 05/09/22 14:38 Home Medications Medication Instructions Recorded Confirmed Type aspirin 81 mg tablet,delayed 81 mg PO DAILY #30 tabs 05/25/19 05/15/22 Rx release multivitamin 1 tab PO QAM 10/02/19 05/15/22 History flecainide 100 mg tablet 100 mg PO Q12H #180 tabs 07/19/21 05/15/22 Rx Flutter Valve #1 ea 09/08/21 05/15/22 Rx albuterol sulfate 90 mcg/actuation 2 puff inhalation Q6H PRN 09/08/21 05/15/22 Rx aerosol inhaler Shortness Of Breath Or Wheezing #18 grams dextromethorphan-guaifenesin 30 1 tab PO Q12H PRN cough #60 tabs 09/08/21 05/15/22 Rx mg-600 mg tablet extended [id number] hr (Mucinex DM) fluticasone propionate 50 1 spray intranasal UD PRN SINUS 09/28/21 05/15/22 History mcg/actuation nasal CONGESTION spray,suspension (Allergy Relief (fluticasone)) metoprolol tartrate 100 mg tablet 100 mg PO .COMPLEX #225 tabs 01/08/22 05/15/22 Rx pravastatin 40 mg tablet 40 mg PO QPM #90 tabs 04/02/22 05/15/22 Rx polyethylene glycol 3350 17 gram 17 g PO DAILY PRN Constipation 05/15/22 History oral powder packet (Miralax) tramadol 50 mg tablet 50 mg PO Q6H PRN Pain 05/15/22 05/15/22 History Past Med/Surg History Medical History Allergic rhinitis Arthritis Atelectasis of left lung 09/19/21- PT STATES PARTIALLY COLLAPSED Brain metastasis 02/2022 swelling and bleeding found @ [facility] Chronic cough COPD with emphysema Exertional shortness of breath History of back problems Hyperlipemia On anticoagulant therapy XARELTO AND ASA Paroxysmal atrial fibrillation controlled w/ medication, follows w/ Kip Olga last visit 03/2022 Port-A-Cath in place (~10/02/21) Insertion of Access Port with Fluoroscopy(Left) - Koby Ivey DO 10/02/2021 Skin cancer REMOVED FROM LEFT HAND Small cell lung cancer dx 08/19/2021--JACKIE- currently undergoing chemo every third week for 5 days straight on that third week at the cancer care center Surgical History H/O knee surgery LEFT History of colonoscopy History of tooth extraction Hx of tonsillectomy S/P bronchoscopy SEPTEMBER 01, 2021 AT [facility] S/P radiofrequency ablation operation for arrhythmia "UNSUCCESSFUL" 10/01/2017 >FOLLOWS WITH NC CARDIO LAST 07/2021- CURRENTLY STOPPED XARELTO DUE TO NOSE BLEEDS Family History Father Diabetes Cardiac disorder Myocardial infarction Lung cancer Hypertension Mother Ovarian cancer Dementia Grandmother (Paternal) Diabetes Grandfather (Paternal) Diabetes Denies family history of Prostate cancer Breast cancer Colorectal cancer Social History Smoking Status: Former smoker Tobacco Type: Cigarettes Age Started Using Tobacco: 24; packs per day: 0.5; Cigarettes Per Day: 20; Second Hand Exposure: No; Hx Alcohol Use: No Hx Substance Use: No Preferred Language: Bulgarian Communication Ability: Effective Visual Impairment: No Limitations Hearing Ability: Normal Tribal Judge Required: No Beliefs That Will Affect Care: None marital status: Single Current Living Situation: Alone Current Living Situation Comment: FRIENDS TO HELP 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 How many Children do You have: 1 Feels Safe at Home: Yes Childhood Exposure to Second-Hand Smoke: No caffeine: Yes during the past year weight has: remained stable Dental Care, Regularly: No Physical Activity Frequency: 1-2 Times per Week Seatbelt Use: sometimes Sunscreen Use: Yes Gender Identity: Male Assistive Devices: None Review of Systems Review of Systems: Constitutional: general weakness x 2 .5 days; no fever/chills, fatigue, myalgias, anorexia, night sweats Eyes: No diplopia, no worsening or blurred vision ENT: normal hearing, no trouble swallowing Respiratory: No cough, sputum, dyspnea at rest or on exertion Cardiovascular: No chest pain, tightness or palpitations Abdomen: some mild nausea with copious diarrhea x 2.5 days no vomiting, constipation, melena, consistent hematochezia but some bright red blood with wiping : Denies dysuria, hematuria, increased urgency/frequency, urinary retention Musculoskeletal: No joint pain, calf pain, swelling Neurologic: No weakness, numbness/tingling, or balance problems Psychiatric: No anxiety or depression Skin: No rash or itch Physical Exam Physical Exam: General: awake, alert, no apparent distress, with pallor Head: Normocephalic, atraumatic ENT: PERRL, EOMI, no pharyngeal exudate, mucous membranes moist Chest: Clear to auscultation, on room air, no adventitious breath sounds Cardiac: Regular rate and rhythm, no murmur, no JVD, normal peripheral pulses, good capillary refill Abdominal: NABS x 4 quadrants, soft, nontender to palpation, no rebound, guarding or tenderness Extremities: Normal inspection, no peripheral edema or erythema, calfs nonten miriam to palpation Psych: Normal mood and affect Neuro: AAO x 3, strength intact bilaterally and rated 5/5, no motor deficits, speech is clear, no peripheral sensory deficits Skin: no rash or erythema Results & Data Results & Data ([facility]) Vital Signs (Past 12 Hours) Vital Signs Temp Pulse Resp BP Pulse Ox O2 Del Method 05/15/22 12:00 84 20 111/57 L 99 05/15/22 11:37 84 20 98 05/15/22 11:59 84 22 100 Room Air 05/15/22 11:23 36.2 C L 88 20 61/36 L 97 Room Air Laboratory Results Abnormal lab results 05/15/22 05/15/22 05/15/22 Range/Units 11:54 11:54 11:54 WBC 1.13 L (4.8-10.8) K/ul RBC 2.06 L (4.63-6.08) M/uL Hgb 6.7 L* (14.0-18.0) g/dl Hct 18.8 L* (40.1-51.0) % RDW Std Deviation 48.5 H (36.4-46.3) fL RDW Coeff of Gagandeep 15.8 H (11.5-14.5) % MPV 9.3 L (9.4-12.4) fL Neut # (Auto) 0.21 L* (1.4-6.5) K/uL Lymph # (Auto) 0.76 L (1.2-3.4) K/uL Mercer # (Auto) 0.13 L (0.24-0.82) K/uL PT 12.8 H (9.0-12.0) Seconds INR 1.2 H (0.9-1.1) Sodium 134 L (136-145) mmol/L Glucose 114 H (70-99(Fasting)) mg/dl AST 10 L (13-39) U/L Crossmatch 05/15/22 Range/Units 11:56 WBC (4.8-10.8) K/ul RBC (4.63-6.08) M/uL Hgb (14.0-18.0) g/dl Hct (40.1-51.0) % RDW Std Deviation (36.4-46.3) fL RDW Coeff of Gagandeep (11.5-14.5) % MPV (9.4-12.4) fL Neut # (Auto) (1.4-6.5) K/uL Lymph # (Auto) (1.2-3.4) K/uL Mercer # (Auto) (0.24-0.82) K/uL PT (9.0-12.0) Seconds INR (0.9-1.1) Sodium (136-145) mmol/L Glucose (70-99(Fasting)) mg/dl AST (13-39) U/L Crossmatch See Detail Diagnostic Findings Chest X-Ray 05/15/22 11:40 XR chest 1V portable HISTORY: weakness COMPARISON: Chest 10/02/2021. FINDINGS: No pneumothorax. No pleural effusions. The heart is normal in size. Linear density within the left upper lobe has improved and almost completely resolved. Otherwise, lungs are clear. Left subclavian Port-A-Cath terminates in the SVC. There are old, healed right-sided rib fractures. IMPRESSION: Left upper lobe linear scarlike density has improved. Otherwise, no acute process within the chest. ACT 112: Negative or not required by law. Electronically signed by: Geovanny Fischer M.D. 05/15/2022 12:11 PM ECG Additional Comments: Normal sinus rhythm ST & T wave abnormality, consider inferior ischemia ST & T w ave abnormality, consider anterior ischemia Abnormal ECG When compared with ECG of 11-SEP-2021 20:14, QRS duration has increased T wave inversion now evident in Inferior leads. Code Status & VTE Plan Code Status DNR/DNI. Supervising Physician Co-Signing Physician Notes I personally saw and examined the patient. I verified all foreman points and agree with Geovanna Acosta PA-C with the following exceptions and/or additions: 71 year old male presents to ER with generalized weakness, shortness of breath, falls and dizziness O/E A&Ox3, HS1+2, no murmurs, RRR, Chest CTAB, Abdo SNT, no cellulitis A/P Pancytopenia due to chemotherapy - consult oncology for advice regarding neupogen, transfuse to aim Hgb > 8. Hgb stable 6.7 after 1 unit. Transfuse 2 further units and recheck 1 hour following transfusion. Neutropenic fever - Empiric antibiotics with vancomycin + zosyn. Neutropenic isolation precautions. Central venous catheter port - potential source, blood cultures taken. Diarrhea potential source but no changes on CT, stool PCR, c. diff pending - suspect more likely due to chemotherapy. PG Care Time/CCT Total # of Minutes Spent Total Time Spent with Patient: Total time spent is greater than 50% in coordination of care (as documented) at patient's floor/unit and/or counseling patient: Coding Level of Care Code 57624 INT INP/OBS CARE 3/75MIN Diagnoses Neutropenic fever D70.9; R50.81 Anemia D64.9 Diarrhea R19.7 Small cell lung cancer C34.90 Weakness R53.1 PSVT (paroxysmal supraventricular tachycardia) I47.1 Paroxysmal atrial fibrillation I48.0 COPD with emphysema J43.9
[2022-05-15] MEDS ORDERED: ACETAMINOPHEN 1000 MG/100 ML IV IV ONE (14:01)
[2022-05-15] MEDS ORDERED: VANCOMYCIN CONSULT ACTIVE PRN ×2 (14:13→19:28)
[2022-05-15] MEDS ORDERED: PIPERACILLIN/TAZOBACTAM 4.5 GM in DEXTROSE 5% 100 ML IV SCH (14:15)
[2022-05-15] MEDS ORDERED: PIPERACILLIN/TAZOBACTAM 4.5 GM/120 ML BAG IV ONE (14:30)
[2022-05-15] MEDS ORDERED: VANCOMYCIN HCL 1,750 MG in SODIUM CHLORIDE 0.9% 500 ML IV ONE (14:45)
[2022-05-15] MEDS ORDERED: DEXTROMETHORPHAN GUAIFENESIN PO PRN (15:38)
[2022-05-15] MEDS ORDERED: ACETAMINOPHEN 325 MG TAB PO PRN (15:38)
[2022-05-15] MEDS ORDERED: ALBUTEROL HFA 8 GM INHALER INH PRN (15:38)
[2022-05-15] MEDS ORDERED: ONDANSETRON INJ 2 MG/ML 2 ML VIAL IV PRN (15:38)
[2022-05-15] MEDS ORDERED: HYDROCORTISONE ACETATE 25 MG SUPP PR PRN (15:38)
[2022-05-15] MEDS ORDERED: FLUTICASONE PROPIONATE NA SPR 16 GM BTL PRN (15:38)
[2022-05-15] MEDS: LACTATED RINGER'S 1,000 ML IV SCH ×2 (16:30→23:35)
[2022-05-15 17:11] LABS: Hematocrit (blood only) 19.1 % (40.1-51.0); Hemoglobin 6.7 g/dl (14.0-18.0)
[2022-05-15] MEDS ORDERED: OPTIRAY 320 500ml IV ONE (18:50)
--- NOTE | 2022-05-15 19:11 | CT Scan Report ---
ABDOMEN AND PELVIS CT WITH IV CONTRAST CT DOSE: 615.10 mGy.cm HISTORY: neutropenic fever, diarrhea TECHNIQUE: Multiaxial CT images of the abdomen and pelvis were performed following the use of intrave nous contrast. A dose lowering technique was utilized adhering to the principles of ALARA. COMPARISON STUDY: Abdomen and pelvis CT 03/08/2022. PET CT 04/18/2022. FINDINGS: There are mild dependent changes seen within the lung bases. No pneumoperitoneum. No pneuma tosis. No suspicious lytic or blastic osseous lesions. Stable 5 mm hypodense lesion within the left h epatic lobe a 5 mm hypodense lesion within the right hepatic lobe. These are technically too small to characterize but favor cysts. The gallbladder, pancreas, spleen, and kidneys are unremarkable. No hy dronephrosis. No retroperitoneal lymphadenopathy. Moderate atherosclerotic plaque within the normal c aliber abdominal aorta. The main portal vein is patent. Bilateral adrenal gland nodules/metastases schwartz ve decreased in size. Dominant left adrenal gland nodule measures 16 x 9 mm, previously measuring 17 x 13 mm. Normal bladder. No pelvic lymphadenopathy or pelvic free fluid. No dilated loops of bowel to suggest an obstruction. Fluid-filled colon. No bowel wall thickening. Normal appendix. IMPRESSION: 1. Fluid-filled colon. This can be seen in the setting of a diarrheal illness/gastroenteritis. 2. Normal appendix. 3. No bowel wall thickening or obstruction. 4. Decrease in size in the bilateral adrenal gland metastases. ACT 112: Negative or not required by law. Electronically signed by: Geovanny Fischer M.D. 05/15/2022 7:09 PM
[2022-05-15] MEDS: NYSTATIN SUSP 500,000 U/5 ML UDC PO SCH ×2 (19:18→20:29)
[2022-05-15 19:28] LABS: Appearance Urine Clear (Clear); Bacteria Urine Automated Negative (Negative); Bilirubin Urine Negative (Negative); Blood Urine Negative (Negative); Color Urine Orange; Glucose Urine UA Negative (Negative); Ketones Urine 1+ (Negative); Leukocyte Esterase Urine Negative (Negative); Nitrite Urine Negative (Negative); Protein Urine Trace (Negative); RBC Urine Automated 0-4 /hpf (0-4); Specific Gravity Urine 1.027 (1.000-1.030); Urobilinogen Urine Negative (Negative); pH Urine 5.5 (4.5-7.5)
[2022-05-15] MEDS: FLECAINIDE ACETATE 100 MG TABLET PO SCH (20:29)
[2022-05-15] MEDS: PRAVASTATIN SOD 40 MG TAB PO SCH (20:29)
[2022-05-15] MEDS: PIPERACILLIN/TAZOBACTAM 4.5 GM in DEXTROSE 5% 100 ML IV SCH (21:22)
[2022-05-16 02:53] LABS: Hematocrit (blood only) 24.2 % (40.1-51.0); Hemoglobin 8.6 g/dl (14.0-18.0); Mean Corpuscular Hgb Conc 35.5 g/dL (32.0-36.0); Mean Corpuscular Volume 87.4 fL (80.0-100.0); Mean Platelet Volume 9.4 fL (9.4-12.4); Platelet Count 80 K/uL (130-400); RDW Coefficient of Variation 15.5 % (11.5-14.5); RDW Standard Deviation 46.6 fL (36.4-46.3); Red Blood Count 2.77 M/uL (4.63-6.08); White Blood Count 0.87 K/ul (4.8-10.8)
[2022-05-16] MEDS: PIPERACILLIN/TAZOBACTAM 4.5 GM in DEXTROSE 5% 100 ML IV SCH ×3 (05:47→21:45)
--- NOTE | 2022-05-16 05:50 | Hospitalist Progress Note ---
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 Also has what are probably skin metastases. He did receive Neulasta in conjunction with his topotecan at the end of last week. Will need to stabilize immediately from aspect of his pancytopenia and infection/sepsis then reassess overall prognosis and level of aggression of treatment (2) Neutropenic fever: Plan: Patient on appropriate coverage for neutropenic fever, if cultures negative for relevant resistant gram-positive cocci could discontinue vancomycin after 48 hours Since he did receive Neulasta he would not be benefit to the use of myeloid growth factors In the context of his overall disease he is DNR/DNI but still a candidate for aggressive pharmacologic therapy unless/until there is further review of his prognosis and alteration of overall parameters of care (3) Pancytopenia: Plan: Primarily chemotherapy effect but will check nutritional studies to make sure they are not additional issues we can augment to help his more rapid recovery especially with respect to iron where he has had some GI losses As above myeloid growth factors not likely to be of benefit Empiric folic acid would be a consideration even as we await results of his folic acid determinations. Plan Continue antibiotics but consider discontinuing vancomycin after 48 hours if there is no relevant culture positivity to require its ongoing treatment Patient did receive Neulasta so does not need further myeloid growth factors Checking nutritional studies, while we are waiting those results could consider empiric folic acid supplementation Either Dr. Miller or myself will do a more formal and complete consult later today. That may include reassessment of overall goals of care. Depending on her input it may be worthwhile for palliative care to have a conversation with the patient while he is here. Admission and Anticipated Discharge Date Admission Date: May 15, 2022 Subjective Patient with small cell lung cancer on salvage topotecan last received a dose 05/11/2022 and in conjunction with that did receive Neulasta. Admitted with neutropenic fever and hypotension. Results & Data Results & Data ([facility]) Vital Signs (Past 12 Hours) Vital Signs Temp Pulse Resp BP Pulse Ox O2 Del Method 05/16/22 04:00 68 13 94/53 L 05/16/22 03:00 72 20 97/53 L 05/16/22 02:00 72 16 97/58 L 05/16/22 01:00 73 17 98/63 L 05/16/22 00:46 72 16 82/60 L 05/16/22 00:30 73 16 130/28 L 05/16/22 00:00 76 14 99/59 L 05/15/22 23:45 77 17 110/62 05/15/22 23:30 79 25 H 121/67 05/15/22 20:03 Room Air 05/15/22 23:00 70 18 106/54 L 98 05/15/22 22:45 70 15 102/54 L 95 05/15/22 22:30 71 17 82/56 L 94 05/15/22 22:15 74 22 100/61 96 05/15/22 22:00 72 18 89/57 L 94 05/15/22 21:45 73 18 105/61 97 05/15/22 21:30 76 16 102/57 L 05/15/22 21:15 72 15 99/57 L 96 05/15/22 21:00 74 18 111/57 L 96 05/15/22 20:45 74 21 105/61 97 05/15/22 20:30 76 21 99/72 L 96 05/15/22 20:15 75 19 107/61 95 05/15/22 20:00 75 9 L 100/60 92 05/15/22 19:45 79 17 95/56 L 98 05/15/22 19:30 81 21 86/60 L 97 05/15/22 19:15 88 13 116/72 05/15/22 19:00 93/54 L 05/15/22 23:08 37.0 C 80 22 121/67 97 05/15/22 22:08 37.1 C 70 18 82/56 L 95 05/15/22 21:38 37.0 C 76 15 102/57 L 96 05/15/22 21:23 37.0 C 75 15 99/57 L 97 05/15/22 20:41 37.0 C 77 21 99/72 L 97 05/15/22 20:00 37.0 C 75 18 100/60 92 05/15/22 19:00 37.0 C 77 18 93/54 L 97 05/15/22 21:07 37.0 C 73 13 99/62 L 97 05/15/22 19:00 75 14 93/54 L 97 05/15/22 18:15 85/52 L 05/15/22 18:15 77 20 96 05/15/22 18:00 76 14 05/15/22 18:00 96/55 L PG Care Time/CCT Total # of Minutes Spent Total Time Spent with Patient: Total time spent is greater than 50% in coordination of care (as documented) at patient's floor/unit and/or counseling patient: Coding Level of Care Code None Diagnoses Small cell lung cancer C34.90 Neutropenic fever D70.9; R50.81 Pancytopenia D61.818
[2022-05-16 06:36] LABS: Calcium 7.7 mg/dl (8.5-10.1); Magnesium 1.9 mg/dl (1.7-2.4)
[2022-05-16 06:40] LABS: Adenovirus F 40/41 PCR Not Detected (NotDetected); Astrovirus PCR Not Detected (NotDetected); Campylobacter PCR Not Detected (NotDetected); Cryptosporidium PCR Not Detected (NotDetected); Cyclospora cayetanensis PCR Not Detected (NotDetected); Entamoeba histolytica PCR Not Detected (NotDetected); Enteroaggregative E.coli(EAEC) Not Detected (NotDetected); Enteropathogenic E.coli (EPEC) Not Detected (NotDetected); Enterotoxigenic E.coli (ETEC) Not Detected (NotDetected); Giardia lamblia PCR Not Detected (NotDetected); Norovirus GI/GII PCR Not Detected (NotDetected); Plesiomonas shigelloides PCR Not Detected (NotDetected); Rotavirus A PCR Not Detected (NotDetected); Salmonella PCR Not Detected (NotDetected); Sapovirus PCR Not Detected (NotDetected); Shiga-like Toxin E.coli (STEC) Not Detected (NotDetected); Shigella/Enteroinvasive E.coli Not Detected (NotDetected); Vibrio cholerae PCR Not Detected (NotDetected); Vibrio species PCR Not Detected (NotDetected); Yersinia enterocolitica PCR Not Detected (NotDetected)
[2022-05-16 06:42] LABS: BUN Creatinine Ratio 14.6 (10-20); Creatinine Clr Calc Pharmacy 77.6 ml/min; Est GFR (African American) 84.9 ml/min; Est GFR (Non-African American) 73.3 ml/min
[2022-05-16 07:23] LABS: Hematocrit (blood only) 24.4 % (40.1-51.0); Hemoglobin 8.6 g/dl (14.0-18.0); Mean Corpuscular Hgb Conc 35.2 g/dL (32.0-36.0); Mean Corpuscular Volume 88.1 fL (80.0-100.0); Mean Platelet Volume 9.3 fL (9.4-12.4); Platelet Count 75 K/uL (130-400); RDW Coefficient of Variation 15.7 % (11.5-14.5); Red Blood Count 2.77 M/uL (4.63-6.08); White Blood Count 0.94 K/ul (4.8-10.8)
[2022-05-16 07:24] LABS: Basophils # (auto) 0.01 K/uL (0-0.2); Basophils % (auto) 1.1 %; Dohle Bodies 2+; Immature Granulocytes # (auto) 0.08 K/uL (0.00-0.02); Immature Granulocytes % (auto) 8.5 %; Lymphocytes # (auto) 0.53 K/uL (1.2-3.4); Lymphocytes % (auto) 56.4 %; Monocytes # (auto) 0.18 K/uL (0.24-0.82); Monocytes % (auto) 19.1 %; Neutrophils # (auto) 0.14 K/uL (1.4-6.5); Neutrophils % (auto) 14.9 %; Toxic Granulation 1+
[2022-05-16 07:26] LABS: Ferritin 1191.4 ng/ml (8-388)
[2022-05-16 07:55] LABS: Iron 166 mcg/dl (35-175); Unsaturated Iron Binding Cap < 55 mcg/dl (155-355)
--- NOTE | 2022-05-16 08:34 | Oncology Consultation ---
Date of Consultation May 16, 2022 Assessment & Plan (1) Pancytopenia: (2) Neutropenic fever: (3) Small cell lung cancer: (4) Anemia: (5) Diarrhea: Plan Pleasant gentleman who presented with chemotherapy induced neutropenic fever, diarrhea due after receiving cycle 3 of topotecan. Patient is currently around kylah period which explains his pancytopenia -Agree with broad-spectrum antibiotics -Although he received Neulasta after his most recent chemotherapy, would recommend G-CSF with Zarxio 480 mcg daily x2 to 3 days in the setting of neutropenic fever and neutropenic enterocolitis -Discussed overall plan going forward with patient, CT abdomen and pelvis indicates improvement in adrenal metastasis. Chest x-ray also suggestive of improvement in lung lesion indicating treatment response. Would recommend switching to weekly topotecan which is generally better tolerated.. Patient agreed with this plan Thank you for this consult. Oncology continue following patient while in the hospital. Please feel free to call if you have any further questions History of Present Illness Reason for Consultation: Neutropenic fever Attending Physician: Levon Capellan History of Present Illness Mr. Avila is a very pleasant 71-year-old gentleman known to me at [facility] with extensive stage small cell lung cancer for which he is currently on second line treatment with topotecan. He recently received cycle 3-day 1-5 of topotecan from 05/07/2022 to 05/11/2022. He presented to the ER [facility] with profuse diarrhea and fatigue. On presentation to the ED, he was found to be hypotensive with blood pressure of 61/36 for which she received IV fluids with improvement in blood pressure. Labs revealed leukopenia with white cell count of 1.13 and ANC of 0.21 as well as anemia with hemoglobin of 6.7. He received 2 units of PRBC with improvement in hemoglobin to 8.6. ANC continues t o decline with labs today showing ANC of 0.14. He is currently on broad- spectrum antibiotics with vancomycin and Zosyn. He continues to have diarrhea although he states it slightly better. Allergies Allergy/AdvReac Type Severity Reaction Status Date / Time No Known Allergies Allergy Verified 05/09/22 14:38 Home Medications Medication Instructions Recorded Confirmed Type aspirin 81 mg tablet,delayed 81 mg PO DAILY #30 tabs 05/25/19 05/15/22 Rx release multivitamin 1 tab PO QAM 10/02/19 05/15/22 History flecainide 100 mg tablet 100 mg PO Q12H #180 tabs 07/19/21 05/15/22 Rx Flutter Valve #1 ea 09/08/21 05/15/22 Rx albuterol sulfate 90 mcg/actuation 2 puff inhalation Q6H PRN 09/08/21 05/15/22 Rx aerosol inhaler Shortness Of Breath Or Wheezing #18 grams dextromethorphan-guaifenesin 30 1 tab PO Q12H PRN cough #60 tabs 09/08/2105/15 Rx mg-600 mg tablet extended [id number] hr (Mucinex DM) fluticasone propionate 50 1 spray intranasal UD PRN SINUS 09/28/21 05/15/22 History mcg/actuation nasal CONGESTION spray,suspension (Allergy Relief (fluticasone)) metoprolol tartrate 100 mg tablet 100 mg PO .COMPLEX #225 tabs 01/08/22 05/15/22 Rx pravastatin 40 mg tablet 40 mg PO QPM #90 tabs 04/02/22 05/15/22 Rx polyethylene glycol 3350 17 gram 17 g PO DAILY PRN Constipation 05/15/22 05/15/22 History oral powder packet (Miralax) tramadol 50 mg tablet 50 mg PO Q6H PRN Pain 05/15/22 05/15/22 History Patient History Medical History Allergic rhinitis Arthritis Atelectasis of left lung 09/19/21- PT STATES PARTIALLY COLLAPSED Brain metastasis 02/2022 swelling and bleeding found @ [facility] Chronic cough COPD with emphysema Exertional shortness of breath History of back problems Hyperlipemia On anticoagulant therapy XARELTO AND ASA Paroxysmal atrial fibrillation controlled w/ medication, follows w/ Kip Olga last visit 03/2022 Port-A-Cath in place (~10/02/21) Insertion of Access Port with Fluoroscopy(Left) - Koby Ivey DO 10/02/2021 Skin cancer REMOVED FROM LEFT HAND Small cell lung cancer dx 08/19/2021--JACKIE- currently undergoing chemo every third week for 5 days straight on that third week at the [facility] Surgical History H/O knee surgery LEFT History of colonoscopy History of tooth extraction Hx of tonsillectomy S/P bronchoscopy SEPTEMBER 01, 2021 AT [facility] S/P radiofrequency ablation operation for arrhythmia "UNSUCCESSFUL" 10/01/2017 >FOLLOWS WITH [place] CARDIO LAST 07/2021- CURRENTLY STOPPED XARELTO DUE TO NOSE BLEEDS Family History Father Diabetes Cardiac disorder Myocardial infarction Lung cancer Hypertension Mother Ovarian cancer Dementia Grandmother (Paternal) Diabetes Grandfather (Paternal) Diabetes Denies family history of Prostate cancer Breast cancer Colorectal cancer Social History Smoking Status: Former smoker Tobacco Type: Cigarettes Age Started Using Tobacco: 24; packs per day: 0.5; Cigarettes Per Day: 20; Second Hand Exposure: No; Do You Dip or Chew Tobacco: No; Hx Alcohol Use: No Hx Substance Use: No Preferred Language: Icelandic Communication Ability: Effective Visual Impairment: No Limitations Hearing Ability: Normal Warehouse Operator Required: No Beliefs That Will Affect Care: None marital status: Single Current Living Situation: Alone Current Living Situation Comment: FRIENDS TO HELP 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 How many Children do You have: 1 Other Information That Helps Us Care for You: No Feels Safe at Home: Yes Safety Concerns: Feels Safe At This Time Childhood Exposure to Second-Hand Smoke: No caffeine: Yes during the past year weight has: remained stable Dental Care, Regularly: No Physical Activity Frequency: 1-2 Times per Week Seatbelt Use: sometimes Sunscreen Use: Yes Gender Identity: Male Assistive Devices: None Review of Systems Review of Systems: All systems reviewed & are unremarkable except as noted in HPI & below Results & Data ([facility]) Vital Signs (Past 12 Hours) Vital Signs Temp Pulse Resp BP Pulse Ox 05/16/22 04:00 68 13 94/53 L 05/16/22 03:00 72 20 97/53 L 05/16/22 02:00 72 16 97/58 L 05/16/22 01:00 73 17 98/63 L 05/16/22 00:46 72 16 82/60 L 05/16/22 00:30 73 16 130/28 L 05/16/22 00:00 76 14 99/59 L 01/17/23 23:45 77 17 110/62 05/15/22 23:30 79 25 H 121/67 05/15/22 23:00 70 18 106/54 L 98 05/15/22 22:45 70 15 102/54 L 95 05/15/22 22:30 71 17 82/56 L 94 05/15/22 22:15 74 22 100/61 96 05/15/22 22:00 72 18 89/57 L 94 05/15/22 21:45 73 18 105/61 97 05/15/22 21:30 76 16 102/57 L 05/15/22 21:15 72 15 99/57 L 96 05/15/22 21:00 74 18 111/57 L 96 05/15/22 20:45 74 21 105/61 97 05/15/22 23:08 37.0 C 80 22 121/67 97 05/15/22 22:08 37.1 C 70 18 82/56 L 95 05/15/22 21:38 37.0 C 76 15 102/57 L 96 05/15/22 21:23 37.0 C 75 15 99/57 L 97 05/15/22 20:41 37.0 C 77 21 99/72 L 97 05/15/22 21:07 37.0 C 73 13 99/62 L 97
[2022-05-16] MEDS: FLECAINIDE ACETATE 100 MG TABLET PO SCH ×2 (09:26→20:32)
[2022-05-16] MEDS: NYSTATIN SUSP 500,000 U/5 ML UDC PO SCH ×4 (09:26→20:32)
[2022-05-16] MEDS: VANCOMYCIN HCL 1,000 MG in SODIUM CHLORIDE 0.9% 250 ML IV SCH ×2 (09:56→20:35)
--- NOTE | 2022-05-16 10:40 | Gastrointestinal Consultation ---
Date of Consultation May 16, 2022 Assessment & Plan (1) Diarrhea: (2) Anemia: Plan Discussed case with Dr. Laurent who advised on plan. At this time no signs of any GI blood loss and given neutropenia would hold off on any scoping at this time. - would recommend IVF and can use imodium to see if this helps slow down diarrhea since stool studies unremarkable / CT unremarkable for any colitis. will start on imodium 2mg bid. - follow and trend hgb/hct. History of Present Illness Reason for Consultation: suspected LGIB Requesting Physician: Geovanna Acosta PA-C Attending Physician: Levon Capellan History of Present Illness Ptient is a 71 year old male with past medical history of metastatic small cell lung cancer, COPD, A fib (previously on xarelto but this has been held since ), paroxysmal SVT, hypercholesterolemia who presented to the ED for evaluation of diarrhea that started 2 days prior to admission. He tells me diarrhea did start 2 days after his last chemo. He was also having issues with having falls at home. Upon evaluation in the ED his hgb was found to be 6.7. He does not notice any melena or brbpr. In ED he did have CT showing fluid filled colon which can be seen in diarrheal illness or gastroenteritis, no bowel wall thickening or obstruction. he had stool studies which were negative. Stool Hemoccult tests are pending. He tells me that over night he had 3 more diarrheal stools. hgb today is 8.6. Patient denies any current issues with nausea, vomiting, dysphagia, heartburn, or abdominal pain. Last colonoscopy was 2019 with internal hemorrhoids, diverticulosis, and 3 tubular adenoma colon polyps. Allergies Allergy/AdvReac Type Severity Reaction Status Date / Time No Known Allergies Allergy Verified 05/09/22 14:38 Home Medications Medication Instructions Recorded Confirmed Type aspirin 81 mg tablet,delayed 81 mg PO DAILY #30 tabs 05/25/19 05/15/22 Rx release multivitamin 1 tab PO QAM 10/02/19 05/15/22 History flecainide 100 mg tablet 100 mg PO Q12H #180 tabs 07/19/21 05/15/22 Rx Flutter Valve #1 ea 09/08/21 05/15/22 Rx albuterol sulfate 90 mcg/actuation 2 puff inhalation Q6H PRN 09/08/21 05/15/22 Rx aerosol inhaler Shortness Of Breath Or Wheezing #18 grams dextromethorphan-guaifenesin 30 1 tab PO Q12H PRN cough #60 tabs 09/08/21 05/15/22 Rx mg-600 mg tablet extended [id number] hr (Mucinex DM) fluticasone propionate 50 1 spray intranasal UD PRN SINUS 09/28/21 05/15/22 History mcg/actuation nasal CONGESTION spray,suspension (Allergy Relief (fluticasone)) metoprolol tartrate 100 mg tablet 100 mg PO .COMPLEX #225 tabs 01/08/22 05/15/22 Rx pravastatin 40 mg tablet 40 mg PO QPM #90 tabs 04/02/22 05/15/22 Rx polyethylene glycol 3350 17 gram 17 g PO DAILY PRN Constipation 05/15/22 05/15/22 History oral powder packet (Miralax) tramadol 50 mg tablet 50 mg PO Q6H PRN Pain 05/15/22 05/15/22 History Patient History Medical History Allergic rhinitis Arthritis Atelectasis of left lung 09/19/21- PT STATES PARTIALLY COLLAPSED Brain metastasis 02/2022 swelling and bleeding found @ [facility] Chronic cough COPD with emphysema Exertional shortness of breath History of back problems Hyperlipemia On anticoagulant therapy XARELTO AND ASA Paroxysmal atrial fibrillation controlled w/ medication, follows w/ Kip Olga last visit 03/2022 Port-A-Cath in place (~10/02/21) Insertion of Access Port with Fluoroscopy(Left) - Koby Ivey DO 10/02/2021 Skin cancer REMOVED FROM LEFT HAND Small cell lung cancer dx 08/19/2021--JACKIE- currently undergoing chemo every third week for 5 days straight on that [facility] Surgical History H/O knee surgery LEFT History of colonoscopy History of tooth extraction Hx of tonsillectomy S/P bronchoscopy SEPTEMBER 01, 2021 AT [facility] S/P radiofrequency ablation operation for arrhythmia "UNSUCCESSFUL" 10/01/2017 >FOLLOWS WITH [place] CARDIO LAST 07/2021- CURRENTLY STOPPED XARELTO DUE TO NOSE BLEEDS Family History Father Diabetes Cardiac disorder Myocardial infarction Lung cancer Hypertension Mother Ovarian cancer Dementia Grandmother (Paternal) Diabetes Grandfather (Paternal) Diabetes Denies family history of Prostate cancer Breast cancer Colorectal cancer Social History Smoking Status: Former smoker Tobacco Type: Cigarettes Age Started Using Tobacco: 24; packs per day: 0.5; Cigarettes Per Day: 20; Second Hand Exposure: No; Do You Dip or Chew Tobacco: No; Hx Alcohol Use: No Hx Substance Use: No Preferred Language: Iraqi Communication Ability: Effective Visual Impairment: No Limitations Hearing Ability: Normal Hydrotel Operator Required: No Beliefs That Will Affect Care: None marital status: Single Current Living Situation: Alone Current Living Situation Comment: FRIENDS TO HELP 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 How many Children do You have: 1 Other Information That Helps Us Care for You: No Feels Safe at Home: Yes Safety Concerns: Feels Safe At This Time Childhood Exposure to Second-Hand Smoke: No caffeine: Yes during the past year weight has: remained stable Dental Care, Regularly: No Physical Activity Frequency: 1-2 Times per Week Seatbelt Use: sometimes Sunscreen Use: Yes Gender Identity: Male Assistive Devices: Glasses Physical Exam Constitutional: WD/WN, vitals as above Respiratory: normal respiratory effort, lungs clear to auscultation Cardiovascular: RRR, no murmur, no edema Gastrointestinal (Abdomen): normal bowel sounds, soft, nontender, no hepatosplenomegaly Skin: no rashes, warm and dry Psychiatric: Orientation: alert and oriented x 3 Affect: euthymic affect Results & Data ([facility]) Vital Signs (Past 12 Hours) Vital Signs Temp Pulse Resp BP Pulse Ox 05/16/22 04:00 68 13 94/53 L 05/16/22 03:00 72 20 97/53 L 05/16/22 02:00 72 16 97/58 L 05/16/22 01:00 73 17 98/63 L 05/16/22 00:46 72 16 82/60 L 05/16/22 00:30 73 16 130/28 L 05/16/22 00:00 76 14 99/59 L 05/15/22 23:45 77 17 110/62 05/15/22 23:30 79 25 H 121/67 05/15/22 23:00 70 18 106/54 L 98 05/15/22 22:45 70 15 102/54 L 95 05/15/22 23:08 37.0 C 80 22 121/67 97 Diagnostic Findings ABDOMEN AND PELVIS CT WITH IV CONTRAST CT DOSE: 615.10 mGy.cm HISTORY: neutropenic fever, diarrhea TECHNIQUE: Multiaxial CT images of the abdomen and pelvis were performed following the use of intravenous contrast. A dose lowering technique was utilized adhering to the principles of ALARA. COMPARISON STUDY: Abdomen and pelvis CT 03/08/2022. PET CT 04/18/2022. FINDINGS: There are mild dependent changes seen within the lung bases. No pneumoperitoneum. No pneumatosis. No suspicious lytic or blastic osseous lesions. Stable 5 mm hypodense lesion within the left hepatic lobe a 5 mm hypodense lesion within the right hepatic lobe. These are technically too small to characterize but favor cysts. The gallbladder, pancreas, spleen, and kidneys are unremarkable. No hydronephrosis. No retroperitoneal lymphadenopathy. Moderate atherosclerotic plaque within the normal caliber abdominal aorta. The main portal vein is patent. Bilateral adrenal gland nodules/metastases have decreased in size. Dominant left adrenal gland nodule measures 16 x 9 mm, previously measuring 17 x 13 mm. Normal bladder. No pelvic lymphadenopathy or pelvic free fluid. No dilated loops of bowel to suggest an obstruction. Fluid- filled colon. No bowel wall thickening. Normal appendix. IMPRESSION: 1. Fluid-filled colon. This can be seen in the setting of a diarrheal illness/gastroenteritis. 2. Normal appendix. 3. No bowel wall thickening or obstruction. 4. Decrease in size in the bilateral adrenal gland metastases. ACT 112: Negative or not required by law. Electronically signed by: Geovanny Fischer M.D. 05/15/2022 7:09 PM PG Care Time/CCT Total # of Minutes Spent Total Time Spent with Patient: Total time spent is greater than 50% in coordination of care (as documented) at patient's floor/unit and/or counseling patient: Coding Level of Care Code 11491 INT INP/OBS CARE 1/40MIN Diagnoses Diarrhea R19.7 Anemia D64.9 Time Spent (min) 45
--- NOTE | 2022-05-16 10:54 | Pharmacy Report ---
Pharmacy PK ABX Note - Date of Service May 16, 2022 - Assessment and Plan Assessment 71 year old M receiving vancomycin and Zosyn empirically for treatment of febrile neutropenia. Blood culture pending. Look to consider discontinuing vanc in 48 hours if no pertinent culture growth indicating need to continue. Patient initially dosed by levels due to concern for SILVESTRE. Spoke with RN and patient is making urine but there has been difficulty quantifying due to incontinence. Will schedule maintenance dosing based on initial random level and current PK parameters, but will obtain another random level tomorrow morning. Day # 2 of antimicrobial therapy. Plan Vancomycin * Loading dose: 1750 mg IV x 1 administered yesterday at 1630. ~12 hour Random level this morning was 9. * Maintenance dose: 1000 mg IV every 12 hours * Regimen is predicted to achieve target AUC/PREET of 400-600 mg/L.hr * Random level ordered for: 05/17/22 with AM labs Pharmacy will continue to follow and will adjust dose/frequency as necessary. Thank you. Pharmacy has transitioned to AUC monitoring for vancomycin. AUC/PREET is the preferred PK/PD target and is associated with decreased risk of nephrotoxicity compared to traditional trough targets.
[2022-05-16] MEDS: LOPERAMIDE HCL 2 MG CAP PO SCH ×2 (11:00→20:32)
--- NOTE | 2022-05-16 18:30 | Hospitalist Progress Note ---
Date of Service May 16, 2022 Assessment & Plan (1) Neutropenic fever: Plan: Possible sepsis, POA Antineoplastic chemotherapy induced pancytopenia - Initially presented afebrile but severely hypotensive 61/36, received 2L NS and improved to 111/57 but now with a temp of 102F prior to blood transfusion. - Currently BP 115/69 - Tylenol ordered prior to transfusion and prn. - WBC 1.13, ANC 209, severe neutropenia. - Sources of infection right now possibly skin/soft tissue from port vs GI. Port without erythema or evidence of infection, is having rectal pain, ? if due to hemorrhoid irritation vs proctitis. - Will order Butt Paste I to apply as needed - Will place empirically on Zosyn and vancomycin for neutropenic fever given potential source is his port. - CTAP 1. Fluid-filled colon. This can be seen in the setting of a diarrheal ill ness/gastroenteritis. 2. Normal appendix. 3. No bowel wall thickening or obstruction. 4. Decrease in size in the bilateral adrenal gland metastases. - [employer] stool panel plus C. difficile toxin Negative - Blood cultures pending (2) Anemia: Plan: - Hgb 6.7, MCV 91.3. Down from 9.8 weeks ago on 05/04. Baseline over the past 6 months 1213. - Hgb improved to 8.6 - Has some BRBPR when wiping but sounds more like hemorrhoids from frequent diarrhea. - Added Butt paste to rectum - Continue to monitor H&H and for any signs of active GI bleeding - GI consulted and felt no evidence of any active GI bleeding and recommended immodium for the diarrhea and do not plan on any endoscopies with the neutropenia - Eventual EGD to evaluate abnormal PET scan with uptake in esophagus (3) Diarrhea: Plan: - Ongoing for 2.5 days, with 10+ episodes over the past several days. - [employer] stool panel plus C. difficile toxin negative. - CTAP--> fluid filled colon c/w a diarrheal illness/gastroenteritis, normal appendix, no bowel wall thickening or obstruction, decrease in size in the bilateral adrenal gland metastases. - Management of neutropenic fever as above. (4) Small cell lung cancer: Plan: - Diagnosed in July, 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 - s/p radiation therapy. - Receives chemo at [facility] 3rd week of every month for 5 days, last chemo was this past Thursday 05/11. - ANC 209, neutropenic precautions. (5) Weakness: Plan: - Secondary to progression of cancer/chemo/diarrhea with acute blood loss. - PT/OT to eval and treat patient while here. - Patient is realistic about the fact that he will likely soon need placement into a facility as caring for himself at home is becoming too difficult. (6) PSVT (paroxysmal supraventricular tachycardia): Plan: - History of. Will be holding metoprolol for the day given hypotension 60s/30s on arrival. - Admitted to PCU bed. (7) Paroxysmal atrial fibrillation: Plan: - Continue flecainide. Holding metoprolol for hypotension. 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 Now with stage 4 lung cancer, worsening SOB likely due to cancer, COPD, and now acute anemia. - SpO2 97% on RA. - Continue home inhalers. Plan - Admit to PCU. - SCDS for VTE ppx, chemoppx deferred given concern for acute blood loss. - DNR/DNI. Admission and Anticipated Discharge Date Admission Date: May 15, 2022 Subjective Patient is awake in bed and states he is feeling some better. He states he was given immodium today by GI and think his diarrhea is already slowing down He denies any nausea, vomiting, hematochezia, melena or BRB CA. He denies any chest pain or SOB Review of Systems Constitutional: + fever, + chills and + fatigue Ear, Nose, Mouth, Throat: no nasal congestion, no post nasal drip, no nasal obstruction and no epistaxis Respiratory: no cough, no chest congestion and no dyspnea Cardiovascular: no chest pain, no dyspnea and no syncope Gastrointestinal: + early satiety and + diarrhea/loose stools; no nausea, no vomiting, no hematemesis and no blood in stools Integumentary: no rash, no lesions and no new lesions complains of a sore rectum 2/2 diarrhea Physical Exam Constitutional: WD/WN, vitals as above Neck: trachea midline, no thyromegaly Respiratory: normal respiratory effort, lungs clear to auscultation Cardiovascular: RRR, no murmur, no edema Gastrointestinal (Abdomen): normal bowel sounds, soft, nontender, no hepatosplenomegaly no R/R/G Results & Data Results & Data ([facility]) Vital Signs (Past 12 Hours) Vital Signs Pulse Resp BP Pulse Ox Pulse Ox O2 Del Method O2 Flow Rate 05/16/22 12:49 97 0 05/16/22 11:43 81 17 115/69 96 Room Air 05/16/22 08:00 Room Air 05/16/22 10:30 86 23 05/16/22 10:05 74 22 97 05/16/22 10:05 116/65 05/16/22 10:00 73 17 05/16/22 09:30 75 16 05/16/22 09:00 76 19 Laboratory Results Abnormal lab results 05/15/22 05/15/22 05/16/22 Range/Units 11:56 19:06 01:18 WBC 0.87 L* (4.8-10.8) K/ul RBC 2.77 L (4.63-6.08) M/uL Hgb 8.6 L (14.0-18.0) g/dl Hct 24.2 L (40.1-51.0) % RDW Std Deviation 46.6 H (36.4-46.3) fL RDW Coeff of Gagandeep 15.5 H (11.5-14.5) % Plt Count 80 L (130-400) K/uL MPV (9.4-12.4) fL Neut # (Auto) (1.4-6.5) K/uL Lymph # (Auto) (1.2-3.4) K/uL [place] # (Auto) (0.24-0.82) K/uL Immature Gran # (Auto) (0.00-0.02) K/uL Potassium (3.5-5.1) mmol/L Calcium (8.5-10.1) mg/dl Unsaturated IBC (155-355) mcg/dl Ferritin (8-388) ng/ml Urine Protein Trace H (Negative) Urine Ketones 1+ H (Negative) U Hyaline Cast (Auto) 5-10 H (0-5) /lpf U Epithel Cells (Auto) 5-10 H (0-5) /lpf Random Vancomycin (10-20) mcg/ml Crossmatch See Detail 05/16/22 05/16/22 05/16/22 Range/Units 05:32 05:32 05:32 WBC 0.94 L* (4.8-10.8) K/ul RBC 2.77 L (4.63-6.08) M/uL Hgb 8.6 L (14.0-18.0) g/dl Hct 24.4 L (40.1-51.0) % RDW Std Deviation 47.0 H (36.4-46.3) fL RDW Coeff of Gagandeep 15.7 H (11.5-14.5) % Plt Count 75 L (130-400) K/uL MPV 9.3 L (9.4-12.4) fL Neut # (Auto) 0.14 L* (1.4-6.5) K/uL Lymph # (Auto) 0.53 L (1.2-3.4) K/uL [place] # (Auto) 0.18 L (0.24-0.82) K/uL Immature Gran # (Auto) 0.08 H (0.00-0.02) K/uL Potassium 3.0 L (3.5-5.1) mmol/L Calcium 7.7 L (8.5-10.1) mg/dl Unsaturated IBC (155-355) mcg/dl Ferritin 1191.4 H (8-388) ng/ml Urine Protein (Negative) Urine Ketones (Negative) U Hyaline Cast (Auto) (0-5) /lpf U Epithel Cells (Auto) (0-5) /lpf Random Vancomycin 9.0 L (10-20) mcg/ml Crossmatch 05/16/22 Range/Units 05:32 WBC (4.8-10.8) K/ul RBC (4.63-6.08) M/uL Hgb (14.0-18.0) g/dl Hct (40.1-51.0) % RDW Std Deviation (36.4-46.3) fL RDW Coeff of Gagandeep (11.5-14.5) % Plt Count (130-400) K/uL MPV (9.4-12.4) fL Neut # (Auto) (1.4-6.5) K/uL Lymph # (Auto) (1.2-3.4) K/uL [place] # (Auto) (0.24-0.82) K/uL Immature Gran # (Auto) (0.00-0.02) K/uL Potassium (3.5-5.1) mmol/L Calcium (8.5-10.1) mg/dl Unsaturated IBC < 55 L (155-355) mcg/dl Ferritin (8-388) ng/ml Urine Protein (Negative) Urine Ketones (Negative) U Hyaline Cast (Auto) (0-5) /lpf U Epithel Cells (Auto) (0-5) /lpf Random Vancomycin (10-20) mcg/ml Crossmatch Diagnostic Findings Abdomen/Pelvis CT 05/15/22 14:[address] WITH IV CONTRAST CT DOSE: 615.10 mGy.cm HISTORY: neutropenic fever, diarrhea TECHNIQUE: Multiaxial CT images of the abdomen and pelvis were performed following the use of intravenous contrast. A dose lowering technique was utilized adhering to the principles of ALARA. COMPARISON STUDY: Abdomen and pelvis CT 03/08/2022. PET CT 04/18/2022. FINDINGS: There are mild dependent changes seen within the lung bases. No pneumoperitoneum. No pneumatosis. No suspicious lytic or blastic osseous lesions. Stable 5 mm hypodense lesion within the left hepatic lobe a 5 mm hypodense lesion within the right hepatic lobe. These are technically too small to characterize but favor cysts. The gallbladder, pancreas, spleen, and kidneys are unremarkable. No hydronephrosis. No retroperitoneal lymphadenopathy. Moderate atherosclerotic plaque within the normal caliber abdominal aorta. The main portal vein is patent. Bilateral adrenal gland nodules/metastases have decreased in size. Dominant left adrenal gland nodule measures 16 x 9 mm, previously measuring 17 x 13 mm. Normal bladder. No pelvic lymphadenopathy or pelvic free fluid. No dilated loops of bowel to suggest an obstruction. Fluid- filled colon. No bowel wall thickening. Normal appendix. IMPRESSION: 1. Fluid-filled colon. This can be seen in the setting of a diarrheal illness/gastroenteritis. 2. Normal appendix. 3. No bowel wall thickening or obstruction. 4. Decrease in size in the bilateral adrenal gland metastases. ACT 112: Negative or not required by law. Electronically signed by: Geovanny Fischer M.D. 05/15/2022 7:09 PM PG Care Time/CCT Total # of Minutes Spent Total Time Spent with Patient: Total time spent is greater than 50% in coordination of care (as documented) at patient's floor/unit and/or counseling patient: Coding Level of Care Code 74459 SUB INP/OBS CARE 05/23MIN Diagnoses Neutropenic fever D70.9; R50.81 Anemia D64.9 Diarrhea R19.7 Small cell lung cancer C34.90 Weakness R53.1 PSVT (paroxysmal supraventricular tachycardia) I47.1 Paroxysmal atrial fibrillation I48.0 COPD with emphysema J43.9
[2022-05-16] MEDS ORDERED: ZINC OXIDE 16% 45 APPLN, HYDROCORTISONE 1% 45 APPLN, ALUMINUM/MAGNESIUM SUSP 15 ML, BAR... TOP PRN ×2 (18:55→19:43)
[2022-05-16] MEDS ORDERED: BUTT PASTE (ZINC OXIDE 16%) 171 APPLN/57 GM JAR EXT PRN (19:15)
[2022-05-16] MEDS: PRAVASTATIN SOD 40 MG TAB PO SCH (20:32)
[2022-05-16] MEDS: FILGRASTIM 480 MCG/1.6 ML VIAL SC SCH (20:36)
[2022-05-17] MEDS: PIPERACILLIN/TAZOBACTAM 4.5 GM in DEXTROSE 5% 100 ML IV SCH ×2 (05:16→14:22)
[2022-05-17 05:32] LABS: Hematocrit (blood only) 24.2 % (40.1-51.0); Hemoglobin 8.7 g/dl (14.0-18.0); Mean Corpuscular Hemoglobin 31.2 pg (25.0-34.0); Mean Corpuscular Volume 86.7 fL (80.0-100.0); Platelet Count 52 K/uL (130-400); RDW Coefficient of Variation 15.7 % (11.5-14.5); RDW Standard Deviation 46.7 fL (36.4-46.3); Red Blood Count 2.79 M/uL (4.63-6.08); White Blood Count 1.53 K/ul (4.8-10.8)
[2022-05-17 05:59] LABS: BUN Creatinine Ratio 8.7 (10-20); Calcium 8.1 mg/dl (8.5-10.1); Creatinine Clr Calc Pharmacy 86.9 ml/min; Est GFR (African American) 97.3 ml/min; Potassium 2.7 mmol/L (3.5-5.1)
--- NOTE | 2022-05-17 06:08 | Electrocardiogram Report ---
Test Reason : Blood Pressure : / mmHG Vent. Rate : 082 BPM Atrial Rate : 082 BPM P-R Int : 192 ms QRS Dur : 108 ms QT Int : 386 ms P-R-T Axes : 073 069 -06 degrees QTc Int : 450 ms Normal sinus rhythm Abnormal ECG When compared with ECG of 11-SEP-2021 20:14, QRS duration has increased T wave inversion now evident in Anterior leads Confirmed by Nikolay Read ([id number]) on 05/17/2022 6:08:03 AM Referred By: REFERRED SELF Confirmed By:Nikolay Read
[2022-05-17 06:21] LABS: Basophils # (auto) 0.01 K/uL (0-0.2); Basophils % (auto) 0.7 %; Immature Granulocytes # (auto) 0.01 K/uL (0.00-0.02); Immature Granulocytes % (auto) 0.7 %; Lymphocytes # (auto) 0.79 K/uL (1.2-3.4); Lymphocytes % (auto) 51.6 %; Monocytes # (auto) 0.21 K/uL (0.24-0.82); Monocytes % (auto) 13.7 %; Neutrophils # (auto) 0.51 K/uL (1.4-6.5); Neutrophils % (auto) 33.3 %
[2022-05-17] MEDS: FLECAINIDE ACETATE 100 MG TABLET PO SCH ×2 (07:45→20:44)
[2022-05-17] MEDS: NYSTATIN SUSP 500,000 U/5 ML UDC PO SCH ×4 (07:45→20:42)
[2022-05-17] MEDS: LOPERAMIDE HCL 2 MG CAP PO SCH ×4 (07:46→20:43)
[2022-05-17] MEDS: FILGRASTIM 480 MCG/1.6 ML VIAL SC SCH (07:47)
[2022-05-17] MEDS: VANCOMYCIN HCL 1,250 MG in SODIUM CHLORIDE 0.9% 250 ML IV SCH ×2 (08:01→20:42)
--- NOTE | 2022-05-17 08:13 | Hospitalist Progress Note ---
Date of Service May 17, 2022 Assessment & Plan (1) Neutropenic fever: Plan: Possible sepsis, POA, from pancytopenia Antineoplastic chemotherapy induced pancytopenia - Chronic small cell lung cancer with anticipated side affect of treatment - empirically on Zosyn and vancomycin for neutropenic fever given potential source is his port. - CTAP 1. Fluid-filled colon. This can be seen in the setting of a diarrheal illness/gastroenteritis. 2. Normal appendix. 3. No bowel wall thickening or obstruction. 4. Decrease in size in the bilateral adrenal gland metastases. - [employer] stool panel plus C. difficile toxin Negative - Blood cultures pending (2) Anemia: Plan: -Acute on Chronic , transfused 3 u PRBC - GI consulted and felt no evidence of any active GI bleeding and recommended immodium for the diarrhea and do not plan on any endoscopies with the neutropenia - Eventual EGD to evaluate abnormal PET scan with uptake in esophagus (3) Diarrhea: Plan: - [employer] stool panel plus C. difficile toxin negative. - CTAP--> fluid filled colon c/w a diarrheal illness/gastroenteritis, normal appendix, no bowel wall thickening or obstruction, decrease in size in the bilateral adrenal gland metastases. - possible typhiltis (4) Small cell lung cancer: Plan: - Diagnosed in July, acute and not stable or treated completly -with metastatic disease to brain, adrenals. - s/p radiation therapy. - Receives chemo at [facility] 3rd week of every month for 5 days, last chemo was this past Thursday 05/11. - neutropenic precautions. (5) PSVT (paroxysmal supraventricular tachycardia): Plan: - chronic stable , due to low blood pressures metoprolol was held (6) Paroxysmal atrial fibrillation: Plan: -Chronic and stable Continue flecainide. Holding metoprolol for hypotension. 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 (7) COPD with emphysema: Plan: -Chronic stable History of tobacco use. Now with stage 4 lung cancer, worsening SOB likely due to cancer, COPD, and now acute anemia. - SpO2 97% on RA. - Continue home inhalers. (8) Weakness: Plan: - Secondary to progression of cancer/chemo/diarrhea with acute blood loss. - PT/OT to eval and treat patient while here. Plan - SCDS for VTE ppx, chemoppx deferred given concern for acute blood loss. - DNR/DNI. Admission and Anticipated Discharge Date Admission Date: May 15, 2022 Subjective pt is pleasant and in little distress, he is still having diarrhea Physical Exam Physical Exam: pt has normal bowel sounds and a non acute abdomen Results & Data Results & Data ([facility]) Vital Signs (Past 12 Hours) Vital Signs Temp Pulse Pulse Resp BP BP Pulse Ox 05/17/22 04:00 98.6 F 110 H 16 141/79 H 98 05/16/22 23:00 98.6 F 82 16 126/73 97 05/17/22 04:53 105 H 17 141/79 H 05/17/22 04:00 84 16 105/60 05/17/22 03:00 77 18 05/17/22 02:00 78 15 05/17/22 01:00 83 15 05/16/22 23:00 82 16 126/73 05/16/22 22:00 82 26 H 05/16/22 21:00 87 11 L 96 05/17/22 00:19 84 O2 Del Method 05/17/22 04:00 Room Air 05/16/22 23:00 Room Air 05/17/22 04:53 05/17/22 04:00 05/17/22 03:00 05/17/22 02:00 05/17/22 01:00 05/16/22 23:00 05/16/22 22:00 05/16/22 21:00 05/17/22 00:19 Laboratory Results reviewed CBC with persistent pancytopenia, continued neutropenia prp review with hypokalemia, repleted will be ordered Random vancomycin level in therapeutic range ordered magnesium to check for potassium repletion assistance PG Care Time/CCT Total # of Minutes Spent Total Time Spent with Patient: Total time spent is greater than 50% in coordination of care (as documented) at patient's floor/unit and/or counseling patient: Coding Level of Care Code 39250 SUB INP/OBS CARE 3/50MIN Diagnoses Neutropenic fever D70.9; R50.81 Anemia D64.9 Diarrhea R19.7 Small cell lung cancer C34.90 PSVT (paroxysmal supraventricular tachycardia) I47.1 Paroxysmal atrial fibrillation I48.0 COPD with emphysema J43.9 Weakness R53.1
[2022-05-17] MEDS ORDERED: MAGNESIUM SULFATE / D5W 1 GM/100 ML BAG IV ONE (08:30)
[2022-05-17] MEDS: POTASSIUM CHLORIDE CRTAB 20 MEQ TABCR PO SCH ×2 (09:45→20:42)
[2022-05-17] MEDS: METOPROLOL TARTRATE 25 MG TAB PO SCH ×2 (09:46→20:43)
[2022-05-17] MEDS: traMADol HCL 50 MG TABLET PO PRN ×2 (09:49→20:43)
--- NOTE | 2022-05-17 10:05 | Communication Note ---
Date of Service: May 17, 2022 Hgb is stable at 8.7 (was 8.6 yesterday). He has not noticed any GI blood loss. He tells me that diarrhea has improved with the imodium. he has more control of his stools but he is still having frequency. no other GI concerns. Will increase his imodium to QID dosing. would defer scoping given neutropenia at this time. Once he has stabilized he will need set up for an EGD as outpatient for abnormal PET CT and can consider adding Colonoscopy.
--- NOTE | 2022-05-17 13:48 | Pharmacy Report ---
Pharmacy PK ABX Note - Date of Service May 17, 2022 - Assessment and Plan Assessment 05/17 Continues on empiric vanco/zosyn. Patient has been afebrile since the , cultures remain negative. Patient is still neutropenic, although white count improving. Antibiotics set to discontinue after doses tonight. Hospitalist to review. 05/16 71 year old M receiving vancomycin and Zosyn empirically for treatment of febrile neutropenia. Blood culture pending. Look to consider discontinuing vanc in 48 hours if no pertinent culture growth indicating need to continue. Patient initially dosed by levels due to concern for SILVESTRE. Spoke with RN and patient is making urine but there has been difficulty quantifying due to incontinence. Will schedule maintenance dosing based on initial random level and current PK parameters, but will obtain another random level tomorrow morning. Day # 2 of antimicrobial therapy. Plan 05/17 * Random level 10.6, predicted to achieve target AUC/PREET however is approaching subtherapeutic level, will adjust dose to target mid-range * Change to 1250 mg IV every 12 hours * Further levels if continue >48 hours 05/16 Vancomycin * Loading dose: 1750 mg IV x 1 administered yesterday at 1630. ~12 hour Random level this morning was 9. * Maintenance dose: 1000 mg IV every 12 hours * Regimen is predicted to achieve target AUC/PREET of 400-600 mg/L.hr * Random level ordered for: 05/17/22 with AM labs Pharmacy will continue to follow and will adjust dose/frequency as necessary. Thank you. Pharmacy has transitioned to AUC monitoring for vancomycin. AUC/PREET is the preferred PK/PD target and is associated with decreased risk of nephrotoxicity compared to traditional trough targets.
[2022-05-17] MEDS: PSYLLIUM or GUAR GUM FIBER POWDER PACKET PO SCH (14:19)
[2022-05-17] MEDS: PRAVASTATIN SOD 40 MG TAB PO SCH (20:42)
[2022-05-17] MEDS ORDERED: COUGH DROP (SUGAR FREE) LOZ 24 LOZ/1 BOX BUCCAL PRN (23:31)
[2022-05-18] MEDS ORDERED: POTASSIUM CHLORIDE 20 MEQ/15 ML UDC PO SCH (09:00)
[2022-05-18] MEDS: FLECAINIDE ACETATE 100 MG TABLET PO SCH ×2 (09:43→19:39)
[2022-05-18] MEDS: METOPROLOL TARTRATE 25 MG TAB PO SCH ×2 (09:43→19:39)
[2022-05-18] MEDS: NYSTATIN SUSP 500,000 U/5 ML UDC PO SCH ×4 (09:44→19:39)
[2022-05-18] MEDS: PSYLLIUM or GUAR GUM FIBER POWDER PACKET PO SCH (09:44)
[2022-05-18] MEDS: LOPERAMIDE HCL 2 MG CAP PO SCH ×4 (09:44→19:39)
[2022-05-18 09:52] LABS: Basophils # (auto) 0.03 K/uL (0-0.2); Basophils % (auto) 1.1 %; Dohle Bodies 1+; Hematocrit (blood only) 24.6 % (40.1-51.0); Hemoglobin 8.8 g/dl (14.0-18.0); Immature Granulocytes # (auto) 0.02 K/uL (0.00-0.02); Immature Granulocytes % (auto) 0.7 %; Lymphocytes # (auto) 0.73 K/uL (1.2-3.4); Lymphocytes % (auto) 27.2 %; Mean Corpuscular Hemoglobin 31.1 pg (25.0-34.0); Mean Corpuscular Hgb Conc 35.8 g/dL (32.0-36.0); Mean Corpuscular Volume 86.9 fL (80.0-100.0); Mean Platelet Volume 9.9 fL (9.4-12.4); Monocytes # (auto) 0.18 K/uL (0.24-0.82); Monocytes % (auto) 6.7 %; Neutrophils # (auto) 1.72 K/uL (1.4-6.5); Neutrophils % (auto) 64.3 %; Nucleated RBC # (auto) 0.02 K/uL (0-0); Nucleated RBC % (auto) 0.7 %; Platelet Count 34 K/uL (130-400); Polychromasia 1+; RDW Coefficient of Variation 15.6 % (11.5-14.5); RDW Standard Deviation 46.8 fL (36.4-46.3); Red Blood Count 2.83 M/uL (4.63-6.08); Toxic Granulation 1+; White Blood Count 2.68 K/ul (4.8-10.8)
[2022-05-18] MEDS ORDERED: SODIUM CHLORIDE 0.65% NA SOLN 45 ML (OCEAN) ONE (10:27)
[2022-05-18 11:30] LABS: Calcium 8.2 mg/dl (8.5-10.1); Creatinine Clr Calc Pharmacy 52.3 ml/min; Est GFR (African American) 52.6 ml/min; Est GFR (Non-African American) 45.4 ml/min
--- NOTE | 2022-05-18 17:35 | Hospitalist Progress Note ---
Date of Service May 18, 2022 Assessment & Plan (1) Neutropenic fever: Plan: Possible sepsis, POA, from pancytopenia, possible typhilitis Antineoplastic chemotherapy induced pancytopenia - Chronic small cell lung cancer with anticipated side affect of treatment - empirically on Zosyn and vancomycin for neutropenic fever given potential source is his port. - CTAP 1. Fluid-filled colon. This can be seen in the setting of a diarrheal illne ss/gastroenteritis. 2. Normal appendix. 3. No bowel wall thickening or obstruction. 4. Decrease in size in the bilateral adrenal gland metastases. - Only [employer] stool panel plus C. difficile toxin Negative - Blood cultures pending (2) Anemia: Plan: -Acute on Chronic , transfused 3 u PRBC - GI consulted and felt no evidence of any active GI bleeding and recommended immodium for the diarrhea and do not plan on any endoscopies with the neutropenia - Eventual EGD to evaluate abnormal PET scan with uptake in esophagus Pt has thrombocytopenia from bone marrow supression (3) Diarrhea: Plan: Acute self-limited and resolving - Only [employer] stool panel plus C. difficile toxin negative. - CTAP--> fluid filled colon c/w a diarrheal illness/gastroenteritis, normal appendix, no bowel wall thickening or obstruction, decrease in size in the bilateral adrenal gland metastases. - possible typhiltis (4) Small cell lung cancer: Plan: - Diagnosed in July, acute and not stable or treated completly -with metastatic disease to brain, adrenals. - s/p radiation therapy. - Receives chemo at [facility] 3rd week of every month for 5 days, last chemo was this past Thursday 05/11. - neutropenic precautions. (5) PSVT (paroxysmal supraventricular tachycardia): Plan: - chronic stable , due to low blood pressures metoprolol was held as pressure rebounds we will restart metoprolol (6) Paroxysmal atrial fibrillation: Plan: -Chronic and stable Continue flecainide. 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 (7) COPD with emphysema: Plan: -Chronic stable History of tobacco use. Now with stage 4 lung cancer, worsening SOB likely due to cancer, COPD, and now acute anemia. - SpO2 97% on RA. - Continue home inhalers. (8) Weakness: Plan: - Secondary to progression of cancer/chemo/diarrhea with acute blood loss. - PT/OT to eval and treat patient while here. Plan - SCDS for VTE ppx, chemoppx deferred given concern for acute blood loss. And hemorrhagic brain mets - DNR/DNI. Admission and Anticipated Discharge Date Admission Date: May 15, 2022 Subjective pt is pleasant and in little distress, he is having less diarrhea with some firm stool Physical Exam Physical Exam: pt is without distress, abdominal exam is soft and non tender Results & Data Results & Data ([facility]) Vital Signs (Past 12 Hours) Vital Signs Pulse Resp BP Pulse Ox O2 Del Method 05/18/22 11:00 73 17 05/18/22 07:32 88 20 110/64 96 Room Air 05/18/22 08:08 Room Air 05/18/22 07:54 79 Diagnostic Findings CBC is reviewed showing pancytopenia all cell lines improving with exception of platelets Chemistry reviewed finding hypokalemia patient given oral potassium replacement Additional laboratories pending for 05/19/2022 PG Care Time/CCT Total # of Minutes Spent Total Time Spent with Patient: Total time spent is greater than 50% in coordination of care (as documented) at patient's floor/unit and/or counseling patient: Coding Level of Care Code 46323 SUB INP/OBS CARE 2/35MIN Diagnoses Neutropenic fever D70.9; R50.81 Anemia D64.9 Diarrhea R19.7 Small cell lung cancer C34.90 PSVT (paroxysmal supraventricular tachycardia) I47.1 Paroxysmal atrial fibrillation I48.0 COPD with emphysema J43.9 Weakness R53.1
[2022-05-18] MEDS: PRAVASTATIN SOD 40 MG TAB PO SCH (19:39)
[2022-05-18] MEDS: traMADol HCL 50 MG TABLET PO PRN (19:39)
[2022-05-19 05:26] LABS: Calcium 8.2 mg/dl (8.5-10.1); Magnesium 1.9 mg/dl (1.7-2.4); Potassium 3.5 mmol/L (3.5-5.1)
[2022-05-19 05:32] LABS: BUN Creatinine Ratio 3.6 (10-20); Creatinine Clr Calc Pharmacy 41.7 ml/min; Est GFR (Non-African American) 34.5 ml/min
[2022-05-19 05:33] LABS: Hematocrit (blood only) 23.8 % (40.1-51.0); Hemoglobin 8.3 g/dl (14.0-18.0); Mean Corpuscular Hemoglobin 31.2 pg (25.0-34.0); Mean Corpuscular Hgb Conc 34.9 g/dL (32.0-36.0); Mean Corpuscular Volume 89.5 fL (80.0-100.0); Nucleated RBC # (auto) 0.05 K/uL (0-0); Nucleated RBC % (auto) 1.2 %; Platelet Count 22 K/uL (130-400); RDW Coefficient of Variation 15.9 % (11.5-14.5); RDW Standard Deviation 48.2 fL (36.4-46.3); Red Blood Count 2.66 M/uL (4.63-6.08); White Blood Count 4.17 K/ul (4.8-10.8)
[2022-05-19 05:34] LABS: Basophils # (auto) 0.02 K/uL (0-0.2); Basophils % (auto) 0.5 %; Dohle Bodies 1+; Eosinophils # (auto) 0.01 K/uL (0-0.50); Eosinophils % (auto) 0.2 %; Immature Granulocytes # (auto) 0.38 K/uL (0.00-0.02); Immature Granulocytes % (auto) 9.1 %; Lymphocytes # (auto) 1.16 K/uL (1.2-3.4); Lymphocytes % (auto) 27.8 %; Monocytes # (auto) 0.35 K/uL (0.24-0.82); Monocytes % (auto) 8.4 %; Neutrophils # (auto) 2.25 K/uL (1.4-6.5); Polychromasia 1+; Toxic Granulation 1+
--- NOTE | 2022-05-19 07:17 | Hospitalist Progress Note ---
Date of Service May 19, 2022 Assessment & Plan (1) Neutropenic fever: Plan: Acute condition now stabilized patient still has some moderate risk as his blood counts are not normal remains with significant thrombocytopenia possible sepsis, POA, from pancytopenia, possible typhilitis Antineoplastic chemotherapy induced pancytopenia - Chronic small cell lung cancer with anticipated side affect of treatment - empirically on Zosyn and vancomycin for neutropenic fever given potential source is his port. - CTAP 1. Fluid-filled colon. This can be seen in the setting of a diarrheal illness/gastroenteritis. 2. Normal appendix. 3. No bowel wall thickening or obstruction. 4. Decrease in size in the bilateral adrenal gland metastases. - [employer] stool panel plus C. difficile toxin Negative - Blood cultures pending (2) Anemia: Plan: -Acute on Chronic , transfused 3 u PRBC - GI consulted and felt no evidence of any active GI bleeding and recommended immodium for the diarrhea and do not plan on any endoscopies with the neutropenia - Eventual EGD to evaluate abnormal PET scan with uptake in esophagus Pt has thrombocytopenia from bone marrow suppression, platelet counts are slightly declining but expect this to be needed from his previous chemotherapy. Patient has no signs of overt bleeding or bruising. Peripheral smear was ordered (3) Diarrhea: Plan: Acute self-limited and resolving - [employer] stool panel plus C. difficile toxin negative. - CTAP--> fluid filled colon c/w a diarrheal illness/gastroenteritis, normal appendix, no bowel wall thickening or obstruction, decrease in size in the bilateral adrenal gland metastases. - possible typhiltis (4) Small cell lung cancer: Plan: - This is an acute and stable problem diagnosed in July 2021 -with metastatic disease to brain, adrenals. Concern for some mild hemorrhage around his metastatic disease in his brain - s/p radiation therapy. - Receives chemo at [facility] 3rd week of every month for 5 days, last chemo was this past Thursday 05/11. - neutropenic precautions. (5) PSVT (paroxysmal supraventricular tachycardia): Plan: - chronic stable , due to low blood pressures metoprolol was held as pressure rebounds we will restart metoprolol (6) Paroxysmal atrial fibrillation: Plan: -Chronic and stable Continue flecainide. 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 (7) COPD with emphysema: Plan: -Chronic stable History of tobacco use. Now with stage 4 lung cancer, worsening SOB likely due to cancer, COPD, and now acute anemia. - SpO2 97% on RA. - Continue home inhalers. (8) Weakness: Plan: - Secondary to progression of cancer/chemo/diarrhea with acute blood loss. - PT/OT to eval and treat patient while here. Plan - SCDS for VTE ppx, chemoppx deferred given concern for acute blood loss. And hemorrhagic brain mets - DNR/DNI. Admission and Anticipated Discharge Date Admission Date: May 15, 2022 Subjective Patient has resolving diarrhea he said no significant bleeding does have mild epistaxis Patient has persistent thrombocytopenia Physical Exam Physical Exam: Physical examination shows patient awake and appropriate there is no evidence of petechia or obvious signs of ecchymosis. Heart is regular without murmurs lungs are clear without distress Results & Data Results & Data ([facility]) Vital Signs (Past 12 Hours) Vital Signs Temp Pulse Pulse Resp BP BP Pulse Ox 05/19/22 00:08 79 05/19/22 00:00 80 14 144/75 H 05/18/22 23:00 75 12 05/18/22 19:41 97.7 F 91 H 18 117/72 93 O2 Del Method 05/19/22 00:08 05/19/22 00:00 05/18/22 23:00 05/18/22 19:41 Room Air PG Care Time/CCT Total # of Minutes Spent Total Time Spent with Patient: Total time spent is greater than 50% in coordination of care (as documented) at patient's floor/unit and/or counseling patient: Coding Level of Care Code 89230 SUB INP/OBS CARE 2/35MIN Diagnoses Neutropenic fever D70.9; R50.81 Anemia D64.9 Diarrhea R19.7 Small cell lung cancer C34.90 PSVT (paroxysmal supraventricular tachycardia) I47.1 Paroxysmal atrial fibrillation I48.0 COPD with emphysema J43.9 Weakness R53.1
[2022-05-19] MEDS: METOPROLOL TARTRATE 25 MG TAB PO SCH ×2 (08:35→21:15)
[2022-05-19] MEDS: NYSTATIN SUSP 500,000 U/5 ML UDC PO SCH ×4 (08:35→21:15)
[2022-05-19] MEDS: FLECAINIDE ACETATE 100 MG TABLET PO SCH ×2 (08:35→21:15)
[2022-05-19] MEDS: PSYLLIUM or GUAR GUM FIBER POWDER PACKET PO SCH (08:39)
[2022-05-19] MEDS: LOPERAMIDE HCL 2 MG CAP PO SCH (08:39)
--- NOTE | 2022-05-19 10:06 | Hematology/Oncology Prog Note ---
Date of Service May 19, 2022 Assessment & Plan (1) Neutropenic fever: (2) Small cell lung cancer: (3) Anemia: Plan Very pleasant gentleman with small cell lung cancer for which he is currently on second line treatment with topotecan and received cycle 3-day 1-5 of treatment from 05/07/2022 to 05/11/2022. Patient presented to [facility] a few days ago with neutropenic fever, diarrhea and dehydration. He was given IV fluids, started on broad-spectrum antibiotics and received filgrastim x2 days. Clinically doing a lot better -Labs reviewed and shows resolution of neutropenia after receiving G-CSF x2 days. Thrombocytopenia/anemia appears to be worsening likely due to chemotherapy as he is currently in his kylah period(7-10 days post chemo). Would expect counts to stabilize and improve over the next couple of days. Slight worsening renal function noted which I suspect may be due to vancomycin which was discontinued yesterday -Transfuse for platelet count less than 15,000 and hemoglobin less than 7.5 -Plan to switch from topotecan day 1-5 q. 21-day cycle to dose reduced weekly topotecan Oncology will continue following patient. Please feel free to call if you have any further questions Admission and Anticipated Discharge Date Admission Date: May 15, 2022 Subjective Mr. Avila appears to be doing better. States that diarrhea has resolved. Now complains of constipation. Neutropenia has resolved with G-CSF x2 days. Review of Systems Review of Systems: All systems reviewed & are unremarkable except as noted in Subjective Results & Data ([facility]) Vital Signs (Past 12 Hours) Vital Signs Temp Pulse Pulse Resp BP BP Pulse Ox 05/19/22 07:47 37 C 82 18 113/66 92 05/19/22 00:08 79 05/19/22 00:00 80 14 144/75 H 05/18/22 23:00 75 12 O2 Del Method 05/19/22 07:47 Room Air 05/19/22 00:08 05/19/22 00:00 05/18/22 23:00
[2022-05-19] MEDS ORDERED: LOPERAMIDE HCL 2 MG CAP PO PRN (12:51)
[2022-05-19] MEDS: traMADol HCL 50 MG TABLET PO PRN (13:01)
[2022-05-19] MEDS: MULTIVITAMIN TAB PO SCH (13:22)
[2022-05-19] MEDS: PRAVASTATIN SOD 40 MG TAB PO SCH (21:15)
[2022-05-20] MEDS: HEPARIN 100 UNIT/ML 5ML FLUSH FLUSH PRN ×2 (08:24→19:20)
[2022-05-20] MEDS: NYSTATIN SUSP 500,000 U/5 ML UDC PO SCH ×4 (08:29→20:37)
[2022-05-20] MEDS: FLECAINIDE ACETATE 100 MG TABLET PO SCH ×2 (08:30→20:37)
[2022-05-20] MEDS: METOPROLOL TARTRATE 25 MG TAB PO SCH ×2 (08:30→20:36)
[2022-05-20] MEDS: MULTIVITAMIN TAB PO SCH (08:30)
[2022-05-20] MEDS: PSYLLIUM or GUAR GUM FIBER POWDER PACKET PO SCH (08:31)
[2022-05-20] MEDS ORDERED: ONDANSETRON 4 MG OD TAB PO PRN (08:38)
[2022-05-20 08:42] LABS: Hematocrit (blood only) 24.9 % (40.1-51.0); Hemoglobin 8.5 g/dl (14.0-18.0); Mean Corpuscular Hemoglobin 30.8 pg (25.0-34.0); Mean Corpuscular Hgb Conc 34.1 g/dL (32.0-36.0); Mean Corpuscular Volume 90.2 fL (80.0-100.0); Mean Platelet Volume 10.3 fL (9.4-12.4); Nucleated RBC # (auto) 0.14 K/uL (0-0); Nucleated RBC % (auto) 2.3 %; Platelet Count 20 K/uL (130-400); RDW Coefficient of Variation 15.9 % (11.5-14.5); RDW Standard Deviation 48.4 fL (36.4-46.3); Red Blood Count 2.76 M/uL (4.63-6.08); White Blood Count 6.02 K/ul (4.8-10.8)
[2022-05-20 08:57] LABS: BUN Creatinine Ratio 3.7 (10-20); Calcium 8.9 mg/dl (8.5-10.1); Creatinine Clr Calc Pharmacy 36.7 ml/min; Est GFR (African American) 34.3 ml/min; Est GFR (Non-African American) 29.6 ml/min; Magnesium 1.9 mg/dl (1.7-2.4); Potassium 3.7 mmol/L (3.5-5.1)
[2022-05-20 10:04] LABS: ALC (manual) 1.87 K/uL (1.2-3.4); ANC (manual) 3.55 K/uL (1.4-6.5); Lymphocytes # (manual) 1.87 K/uL (1.2-3.4); Lymphocytes % (manual) 31 %; Metamyelocytes # (manual) 0.06 K/uL (0-0); Metamyelocytes % (manual) 1 %; Monocytes # (manual) 0.54 K/uL (0.24-0.82); Monocytes % (manual) 9 %; Myelocytes # (manual) 0.06 K/uL (0-0); Myelocytes % (manual) 1 %; Neutrophils # (manual) 3.55 K/uL (1.4-6.5); Neutrophils % (manual) 59 %; Polychromasia 1+; Toxic Granulation 1+
[2022-05-20] MEDS ORDERED: SODIUM CHLORIDE 0.9% 1000ML 1,000 ML IV SCH (11:15)
[2022-05-20] MEDS ORDERED: SODIUM CHLORIDE 0.9% 500 ML IV SCH (11:30)
--- NOTE | 2022-05-20 16:23 | Hospitalist Progress Note ---
Date of Service May 20, 2022 Assessment & Plan (1) Neutropenic fever: Plan: Acute unstable but improving- Initially presented afebrile but severely hypotensive fever 102. Patient was volume resuscitated -Resolved neutropenia and resolved fever Moderate to significant rest of the patient -With diarrhea consider source of fever is typhlitis - CT A/P 05/15/2022 adrenal metastasis decreased in size fluid-filled colon consistent with diarrheal illness normal appendix no other organ changes (2) Anemia: Plan: - Acute on chronic but stable improved with transfusion Chemotherapy-induced anemia on top of anemia of chronic disease transfuse 3 units packed red blood cells Patient with persistent thrombocytopenia secondary to chemotherapy with persistent epistaxis we will transfuse with platelet count of 20 due to persistent epistaxis - (3) Diarrhea: Plan: Acute resolved- Typhlitis treated with antibiotics resolved with resolution of neutropenia (4) Small cell lung cancer: Plan: Chronic- Diagnosed in July, 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 - s/p radiation therapy. - Receives chemo at [facility] 3rd week of every month for 5 days, last chemo was this past Thursday 05/11. -No longer neutropenic (5) Weakness: Plan: - Chronic secondary to progression of cancer/chemo/diarrhea with acute blood loss. - PT/OT to eval and treat patient while here. - Patient is realistic about the fact that he will likely soon need placement into a facility as caring for himself at home is becoming too difficult. (6) PSVT (paroxysmal supraventricular tachycardia): Plan: - Chronic and stable resumption medications. (7) Paroxysmal atrial fibrillation: Plan: - Chronic and stable continue continue flecainide. Holding metoprolol for hypotension. 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 Now with stage 4 lung cancer, worsening SOB likely due to cancer, COPD, and now acute anemia. - SpO2 98% on RA. - Continue home inhalers. Plan - Admission and Anticipated Discharge Date Admission Date: May 15, 2022 Subjective Patient with persistent epistaxis and trickling down platelet count. Patient to transfuse platelets to do the epistaxis Physical Exam Physical Exam: Only minor bleeding but persistent over the last 3 days with blood when he blows his nose. No blood seen in his posterior pharynx. No peripheral bruising Results & Data Results & Data ([facility]) Vital Signs (Past 12 Hours) Vital Signs Temp Pulse Pulse Resp BP BP Pulse Ox 05/20/22 15:44 98.8 F 85 16 107/69 94 05/20/22 12:57 99.5 F 83 16 124/79 95 05/20/22 12:29 99.5 F 71 16 125/78 95 05/20/22 11:59 98.6 F 82 16 110/71 93 05/20/22 11:44 99.1 F 76 16 107/70 94 05/20/22 11:25 98.1 F 93 H 18 122/73 94 05/20/22 07:29 98.4 F 84 16 121/79 95 O2 Del Method O2 Flow Rate 05/20/22 15:44 Room Air 05/20/22 12:57 0 05/20/22 12:29 05/20/22 11:59 05/20/22 11:44 0 05/20/22 11:25 05/20/22 07:29 Room Air Diagnostic Findings Reviewed CBC with resolution of neutropenia persistent anemia and thrombocytopenia Reviewed chemistry panel with slightly worsened renal function acute kidney injury we will give hydration, baseline chronic and disease stage III PG Care Time/CCT Total # of Minutes Spent Total Time Spent with Patient: Total time spent is greater than 50% in coordination of care (as documented) at patient's floor/unit and/or counseling patient: Coding Level of Care Code 90883 SUB INP/OBS CARE 3/50MIN Diagnoses Neutropenic fever D70.9; R50.81 Anemia D64.9 Diarrhea R19.7 Small cell lung cancer C34.90 Weakness R53.1 PSVT (paroxysmal supraventricular tachycardia) I47.1 Paroxysmal atrial fibrillation I48.0 COPD with emphysema J43.9
[2022-05-20] MEDS: PRAVASTATIN SOD 40 MG TAB PO SCH (20:38)
[2022-05-21] MEDS: FLECAINIDE ACETATE 100 MG TABLET PO SCH ×2 (08:05→20:11)
[2022-05-21] MEDS: METOPROLOL TARTRATE 25 MG TAB PO SCH ×2 (08:05→20:11)
[2022-05-21] MEDS: NYSTATIN SUSP 500,000 U/5 ML UDC PO SCH ×4 (08:05→20:12)
[2022-05-21] MEDS: PSYLLIUM or GUAR GUM FIBER POWDER PACKET PO SCH (08:05)
[2022-05-21] MEDS: MULTIVITAMIN TAB PO SCH (08:05)
[2022-05-21 10:25] LABS: BUN Creatinine Ratio 3.8 (10-20); Calcium 8.4 mg/dl (8.5-10.1); Creatinine Clr Calc Pharmacy 33.9 ml/min; Est GFR (African American) 31.2 ml/min; Est GFR (Non-African American) 26.9 ml/min; Potassium 3.7 mmol/L (3.5-5.1)
[2022-05-21 10:42] LABS: Hematocrit (blood only) 24.2 % (40.1-51.0); Hemoglobin 8.3 g/dl (14.0-18.0); Mean Corpuscular Hemoglobin 31.1 pg (25.0-34.0); Mean Corpuscular Hgb Conc 34.3 g/dL (32.0-36.0); Mean Corpuscular Volume 90.6 fL (80.0-100.0); Mean Platelet Volume 10.1 fL (9.4-12.4); Nucleated RBC # (auto) 0.11 K/uL (0-0); Nucleated RBC % (auto) 1.4 %; Platelet Count 35 K/uL (130-400); RDW Coefficient of Variation 15.9 % (11.5-14.5); RDW Standard Deviation 49.3 fL (36.4-46.3); Red Blood Count 2.67 M/uL (4.63-6.08)
[2022-05-21 10:46] LABS: ALC (manual) 1.84 K/uL (1.2-3.4); ANC (manual) 4.64 K/uL (1.4-6.5); Blast # (manual) 0.08 K/uL (0-0); Blast Cells % (manual) 1 %; Dohle Bodies 1+; Eosinophils # (manual) 0.08 K/uL (0-0.50); Eosinophils % (manual) 1 %; Lymphocytes # (manual) 1.84 K/uL (1.2-3.4); Lymphocytes % (manual) 23 %; Metamyelocytes # (manual) 0.24 K/uL (0-0); Metamyelocytes % (manual) 3 %; Monocytes # (manual) 0.72 K/uL (0.24-0.82); Monocytes % (manual) 9 %; Myelocytes # (manual) 0.24 K/uL (0-0); Myelocytes % (manual) 3 %; Neutrophils # (manual) 4.64 K/uL (1.4-6.5); Neutrophils % (manual) 58 %; Promyelocytes # (manual) 0.16 K/uL (0-0); Promyelocytes % (manual) 2 %
[2022-05-21] MEDS ORDERED: SODIUM CHLORIDE 0.9% 1000ML 1,000 ML IV SCH (12:00)
[2022-05-21] MEDS: LACTATED RINGER'S 1,000 ML IV SCH ×2 (12:07→20:12)
[2022-05-21 13:01] LABS: Appearance Urine Clear (Clear); Bilirubin Urine Negative (Negative); Blood Urine Negative (Negative); Color Urine Yellow; Glucose Urine UA Negative (Negative); Ketones Urine Negative (Negative); Leukocyte Esterase Urine Negative (Negative); Nitrite Urine Negative (Negative); Protein Urine Negative (Negative); Specific Gravity Urine 1.009 (1.000-1.030); Urobilinogen Urine Negative (Negative); pH Urine 6.5 (4.5-7.5)
--- NOTE | 2022-05-21 14:56 | Ultrasound Report ---
RENAL ULTRASOUND HISTORY: Follow up study in a patient with history of hydronephrosis eval hydro COMPARISON: CT abdomen pelvis 05/15/2022 FINDINGS: Right kidney: 10.4 No hydronephrosis. Normal corticomedullary differentiation and cortical thickness. Left kidney: 10.5 No hydronephrosis. Normal corticomedullary differentiation and cortical thickness. Bladder: Partial distention of the urinary bladder. The bilateral ureteral jets were not identified. IMPRESSION: Unremarkable exam. No hydronephrosis. ACT 112: Negative or not required by law. Electronically signed by: Ashwin Dennis M.D. 05/21/2022 2:54 PM
--- NOTE | 2022-05-21 15:51 | Hospitalist Progress Note ---
Date of Service May 21, 2022 Assessment & Plan (1) Neutropenic fever: Plan: Acute, stable and resolved- Initially presented afebrile but severely hypotensive fever 102. Patient was volume resuscitated -Resolved neutropenia and resolved fever Moderate to significant wrisk to the patient subsequently resolved -With diarrhea consider source of fever is typhlitis resolved as neutropenia has resolved - CT A/P 05/15/2022 adrenal metastasis decreased in size fluid-filled colon consistent with diarrheal illness normal appendix no other organ changes Pancytopenia secondary to chemotherapy (2) Acute kidney injury: Plan: Acute kidney injury chronic kidney disease stage III creatinine is trended upward last 2 days. Review of CBC shows stable pancytopenia to improved pancytopenia. Review of chemistries show BUN of 9 by creatinine 2.36. Review of urine sediment is completely benign no evidence of any casts seen Patient stable potassium bicarbonate patient be given intravenous fluids and reevaluate chemistry on 05/22/2022 (3) Anemia: Plan: - Acute on chronic but stable improved with transfusion Chemotherapy-induced anemia on top of anemia of chronic disease transfuse 3 units packed red blood cells Patient with persistent thrombocytopenia secondary to chemotherapy with persistent epistaxis did transfuse platelets 1 unit platelet pheresis. 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 - s/p radiation therapy. - Receives chemo at [facility] 3rd week of every month for 5 days, last chemo was this past Thursday 05/11. -No longer neutropenic (6) Weakness: Plan: - Chronic secondary to progression of cancer/chemo/diarrhea with acute blood loss. - PT/OT to eval and treat patient while here. - Patient is realistic about the fact that he will likely soon need placement into a facility as caring for himself at home is becoming too difficult. (7) PSVT (paroxysmal supraventricular tachycardia): Plan: - Chronic and stable resumption medications. (8) Paroxysmal atrial fibrillation: Plan: - Chronic and stable continue continue flecainide. Holding metoprolol for hypotension. 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 (9) COPD with emphysema: Plan: - Chronic and stable history of tobacco use. Now with stage 4 lung cancer, worsening SOB likely due to cancer, COPD, and now acute anemia. - SpO2 98% on RA. - Continue home inhalers. Plan - Admission and Anticipated Discharge Date Admission Date: May 15, 2022 Subjective Patient with resolution of epistaxis improved platelet count. Physical Exam Physical Exam: Physical exam awake and alert. He has no shortness of breath no chest pain No evidence of bruising epistaxis is stopped Results & Data Results & Data ([facility]) Vital Signs (Past 12 Hours) Vital Signs Temp Pulse Resp BP Pulse Ox O2 Del Method 05/21/22 07:17 98.4 F 79 18 118/75 96 Room Air PG Care Time/CCT Total # of Minutes Spent Total Time Spent with Patient: Total time spent is greater than 50% in coordination of care (as documented) at patient's floor/unit and/or counseling patient: Coding Level of Care Code 54036 SUB INP/OBS CARE 3/50MIN Diagnoses Neutropenic fever D70.9; R50.81 Acute kidney injury N17.9 Anemia D64.9 Diarrhea R19.7 Small cell lung cancer C34.90 Weakness R53.1 PSVT (paroxysmal supraventricular tachycardia) I47.1 Paroxysmal atrial fibrillation I48.0 COPD with emphysema J43.9
[2022-05-21 20:06] VITALS: O2SAT 94
[2022-05-21] MEDS: traMADol HCL 50 MG TABLET PO PRN (20:11)
[2022-05-22 07:40] VITALS: BP 135/84; PULSE 78; TEMP 98.4
[2022-05-22] MEDS: MULTIVITAMIN TAB PO SCH (07:47)
[2022-05-22] MEDS: NYSTATIN SUSP 500,000 U/5 ML UDC PO SCH (07:47)
[2022-05-22] MEDS: METOPROLOL TARTRATE 25 MG TAB PO SCH (07:47)
[2022-05-22] MEDS: PSYLLIUM or GUAR GUM FIBER POWDER PACKET PO SCH (07:47)
[2022-05-22] MEDS: FLECAINIDE ACETATE 100 MG TABLET PO SCH (07:48)
[2022-05-22] MEDS: HEPARIN 100 UNIT/ML 5ML FLUSH FLUSH PRN (09:02)
[2022-05-22 09:26] LABS: Hematocrit (blood only) 24.9 % (40.1-51.0); Hemoglobin 8.4 g/dl (14.0-18.0); Mean Corpuscular Hemoglobin 30.8 pg (25.0-34.0); Mean Corpuscular Hgb Conc 33.7 g/dL (32.0-36.0); Mean Corpuscular Volume 91.2 fL (80.0-100.0); Mean Platelet Volume 9.9 fL (9.4-12.4); Nucleated RBC # (auto) 0.08 K/uL (0-0); Nucleated RBC % (auto) 0.8 %; Platelet Count 42 K/uL (130-400); RDW Coefficient of Variation 16.1 % (11.5-14.5); RDW Standard Deviation 49.3 fL (36.4-46.3); Red Blood Count 2.73 M/uL (4.63-6.08)
[2022-05-22 09:33] LABS: BUN Creatinine Ratio 3.6 (10-20); Calcium 8.6 mg/dl (8.5-10.1); Est GFR (African American) 33.6 ml/min; Est GFR (Non-African American) 28.9 ml/min; Potassium 3.6 mmol/L (3.5-5.1)
[2022-05-22 09:46] LABS: ALC (manual) 1.65 K/uL (1.2-3.4); Blast Cells % (manual) 1 %; Lymphocytes # (manual) 1.65 K/uL (1.2-3.4); Lymphocytes % (manual) 17 %; Metamyelocytes # (manual) 0.19 K/uL (0-0); Metamyelocytes % (manual) 2 %; Monocytes # (manual) 0.87 K/uL (0.24-0.82); Monocytes % (manual) 9 %; Myelocytes # (manual) 0.29 K/uL (0-0); Myelocytes % (manual) 3 %; Neutrophils % (manual) 68 %; Polychromasia 1+; Promyelocytes % (manual) 1 %; Toxic Granulation 1+
--- NOTE | 2022-05-22 14:36 | Discharge Summary ---
Date of Service May 22, 2022 Admission HPI Per Admitting Provider Jah Avila is a 71-year-old male with metastatic small cell lung cancer, COPD, a fib, paroxysmal SVT, and hypercholesterolemia who is presenting today with diarrhea for the past 2 days. He has been having 10+ episodes for the past 2 days and has begun falling yesterday and today. He has been able to catch himself, has not hit his head and has no pain anywhere. He feels too weak to care for himself at home and is having rectal pain now from the frequent diarrhea, which has subsided since arrival as he took Imodium before presenting. Last chemo Saturday, 05/11 and also got Neulasta then. He gets chemo every 3 weeks x 5 days On presentation, initially presented with a BP of 61/36, otherwise vital signs within normal limits, received 2 L normal saline at 111/57. Labs notable for white count of 1.13, ANC 209. Hemoglobin 6.7 last checked 10 days ago on 05/04 and was 9.8 then. INR 1.2. Sodium mildly low at 134, otherwise without electrolyte abnormalities, creatinine mildly bumped at 1.35, baseline seems to be 11.2. Lactate is 1.1. Troponin 7.9. COVID-negative. CXR with left upper lobe linear scarlike density which is improved, otherwise no acute process within the chest. Principal Diagnosis pancytopenia from chemotherapy from metastatic small cell lung cancer acute kidney injury with [id number] Discharge Exam The patient appeared stable Vital signs as documented. Lungs are clear to auscultation and appear unlabored Cardiac exam, Rhythm is regular.. No murmurs, rubs or gallops. Abdominal exam reveals normal bowel sounds, soft non tender, no masses Extremities are nonedematous and both pedal pulses are normal. Neurologic exam is alert and oriented, no focal loss of strength or sensation Skin is without bruises or rashes Psychologically is without concerns for anxiety or depression. Discharge Data Allergies Allergy/AdvReac Type Severity Reaction Status Date / Time No Known Allergies Allergy Verified 05/09/22 14:38 Consultations 05/15/22 13:16 ED Decision to Admit Stat 05/15/22 15:38 Consult Gastroenterology Routine 05/15/22 23:16 Consult Oncology Routine Ordered Studies 05/15/22 14:10 CT Abd and Pelvis [CT abd pelvis IV con only] Stat 05/21/22 11:49 US Kidney Bladder [US renal/blad retro comp] Routine Hospital Course (1) Neutropenic fever: Acute, stable and resolved- Initially presented afebrile but severely hypotensive fever 102. Patient was volume resuscitated -Resolved neutropenia and resolved fever Moderate to significant wrisk to the patient subsequently resolved -With diarrhea consider source of fever is typhlitis, now resolved as neutropenia has resolved - CT A/P 05/15/2022 adrenal metastasis decreased in size fluid-filled colon consistent with diarrheal illness normal appendix no other organ changes Pancytopenia secondary to chemotherapy (2) Acute kidney injury: Acute kidney injury chronic kidney disease stage III creatinine is trended upward last 2 days. Review of CBC shows stable pancytopenia to improved pancytopenia. Review of chemistries show BUN of 9 by creatinine 2.36. Review of urine sediment is completely benign no evidence of any casts seen ultrasound without obstructive uropathy seen Creatinine is improved may be new baseline for chronic kidney disease with creatinine in the low twos recommend surveillance at retirement (3) Anemia: - Acute on chronic but stable improved with transfusion Chemotherapy-induced anemia on top of anemia of chronic disease transfuse 3 units packed red blood cells Epistaxis has resolved with platelet count provement - (4) Diarrhea: Acute resolved- Typhlitis treated with antibiotics resolved with resolution of neutropenia (5) Small cell lung cancer: Chronic- Diagnosed in July, 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 - s/p radiation therapy. - Receives chemo at [facility] 3rd week of every month for 5 days, last chemo was this past Thursday 05/11. -No longer neutropenic (6) Weakness: - Chronic secondary to progression of cancer/chemo/diarrhea with acute blood loss. -Encephalopathy from chronic disease of cancer which is metastatic including metastatic to brain (7) PSVT (paroxysmal supraventricular tachycardia): - Chronic and stable resumption medications. (8) Paroxysmal atrial fibrillation: - Chronic and stable continue continue flecainide. Holding metoprolol for hypotension. 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 (9) COPD with emphysema: - Chronic and stable history of tobacco use. Now with stage 4 lung cancer, worsening SOB likely due to cancer, COPD, and now acute anemia. - SpO2 98% on RA. - Continue home inhalers. Plan - Total Time Total Time Spent Total Time Spent (In Minutes): It required greater than 30 minutes to prepare this patient for discharge Discharge Plan Discharge Items Patient Disposition: Transfer [facility] Fac Reason For Visit: [facility] BLEED Discharge Diagnosis: chemotherapy induced pancytopenia typhlitis resolved Activity: Per Instructions section Activity Comment: PT/OPT Non-emergency contact: Primary Care Provider Call non-emergency contact if: your symptoms worsen Follow-up/Referrals: Jessica Gomes MD [Primary Care Provider] - Diet: Regular Addtl Attending Provider Instructions: please follow cbc for count recovery encourage hydration follow renal function Pending Studies at Discharge: No Stand-Alone Forms: My [facility] Skilled Items Patient informed of condition?: Yes DNR: Yes Discharge Level of Care: Acute rehab Communicable Disease: No Discharge Prognosis: Stable Lines: None Urinary Catheter: No Medications and DC Order Prescriptions: New metoprolol tartrate 25 mg Tablet 25 mg PO BID Qty: 60 0RF Psyllium Or Guar Gum Fiber Sup [Metamucil Or Nutrisource Fiber Supplement] 1 pkg PO QAM Qty: 30 1RF Continued aspirin 81 mg tablet,delayed release (DR/EC) 81 mg PO DAILY Qty: 30 3RF Label Comments: TAKES IN AM pravastatin 40 mg tablet 40 mg PO QPM Qty: 90 1RF flecainide 100 mg tablet 100 mg PO Q12H Qty: 180 3RF albuterol sulfate 90 mcg/actuation HFA aerosol inhaler 2 puff inhalation Q6H PRN (Reason: Shortness Of Breath Or Wheezing) Qty: 18 3RF multivitamin Tablet 1 tab PO QAM fluticasone propionate [Allergy Relief (fluticasone)] 50 mcg/actuation spray,suspension 1 spray intranasal UD PRN (Reason: SINUS CONGESTION) Rx Instructions: administer into each nostril once daily polyethylene glycol 3350 [Miralax] 17 gram Powder In Packet 17 g PO DAILY PRN (Reason: Constipation) tramadol 50 mg Tablet 50 mg PO Q6H PRN (Reason: Pain) Discontinued metoprolol tartrate 100 mg tablet 100 mg PO .COMPLEX Qty: 225 3RF Rx Instructions: Take 1.5 tablet in the morning and 1 tablet in the evening. Mucinex DM 30-600 mg tablet extended release 12 hr 1 tab PO Q12H PRN (Reason: cough) Qty: 60 0RF Rx Instructions: Take 1 tab twice daily for 5 days and then as needed (DME) Flutter Valve Device See Rx Instructions .ROUTE .MEDSUPPLY Qty: 1 0RF Rx Instructions: Use it every 6 hours when awake. Discharge Orders: Discharge Order (Routine); Ordered 05/22/22 Ordered By: Tomasz Mccall Admission Data Admit Date/Time: 05/15/22 13:26 Attending Provider: Tomasz Mccall Admit Provider: Damian Mcgee Primary Care Provider: Jessica Gomes Other Providers: Valeria Ruiz ; [facility] ; Damian Mcgee ; Ross Laurent ; Jason Black Other Interventions: Discharge Summary Assessment (RN) Last Done: 05/22/22 11:38 Coding Level of Care Code HOSP INP/OBS DISCH >30 MIN Diagnoses Neutropenic fever D70.9; R50.81 Acute kidney injury N17.9 Anemia D64.9 Diarrhea R19.7 Small cell lung cancer C34.90 Weakness R53.1 PSVT (paroxysmal supraventricular tachycardia) I47.1 Paroxysmal atrial fibrillation I48.0 COPD with emphysema J43.9
== END 2022-05-22 13:32 | DRG 871 ==
LOC: ED 10:54 → SUATTDRO 13:26 → 1E 13:26 → 3E 05-19 13:46

== ENCOUNTER 2023-05-22 07:32 | Inpatient (IN) ==
[2023-05-22] MEDS ORDERED: SODIUM CHLORIDE 0.9% 500 ML IV SCH (07:45)
--- NOTE | 2023-05-22 07:54 | Emergency Department Note ---
Impression & Plan Rectal bleeding, Anemia, Colitis, Leukocytosis ED Provider Note NAME: ELINA WATERS AGE: 72 SEX: M : 1950 ARRIVES VIA: Walk-In INFORMANT: [Patient] ED PROVIDER(S): [Javi Yang MD] CHIEF COMPLAINT: Rectal bleeding HISTORY OF PRESENT ILLNESS: The patient is a 72-year-old male who states that he developed rectal bleeding yesterday around 10 AM. He had been constipated and went to the bathroom and had a lot of stool and some diarrhea with some blood mixed. Since that episode, it is pretty much just been blood when he moves his bowels. He does have some diffuse crampy abdominal pain. He broke out in a few sweats. He has been nauseated but there has been no true vomiting. The patient has not been short of breath per se or had chest pain but he has felt quite weak in the last 24 hours. He is afraid his count is low. The patient does take aspirin, no other blood thinning agents. He went to the cancer center yesterday and they told him to present to the ER today if the bleeding continued. It has continued. PMHx/PSHx/Social Hx: See Below PHYSICAL EXAM: GENERAL: Patient is in no acute distress. HEENT: No acute trauma, normocephalic atraumatic, mucous membranes moist, no nasal congestion. NECK: No stridor, no adenopathy, no meningismus, trachea is midline. LUNGS: Clear to auscultation bilaterally, no wheeze, no rhonchi, breath sounds equal. HEART: Without murmurs gallops or rubs, regular rate and rhythm. ABDOMEN: Soft, nontender, no peritonitis. EXTREMITIES: No cyanosis, full range of motion of all the joints without pain or difficulty. Mild bilateral pedal edema. NEUROLOGIC: Oriented x 3, no acute motor or sensory deficits, no focal weakness. SKIN: No jaundice, no diaphoresis. Rectal: No external source for bleeding. Digital exam reveals of bright red blood per rectum. Heme positive. DIFFERENTIAL DIAGNOSIS: Upper or lower GI bleeding, hemorrhoidal bleeding, colitis or gastritis, diverticulitis, coagulopathy, anemia, among others. EMERGENCY DEPARTMENT PROCEDURES: MEDICAL DECISION MAKING: There is a moderate leukocytosis, this could be consistent with infection or just the stress of his current situation. A very mild anemia was seen however, the patient carries a history of anemia. There was a normal platelet count. No coagulopathy. No renal failure or significant electrolyte abnormality. Lactic acid level was not elevated making bowel ischemia less likely. There was no concerning liver enzyme elevation. Chest x-ray did not show mediastinal widening, pneumonia or pneumothorax. Abdominal and pelvis CT shows colitis, no acute surgical process by CT imaging. On exam, there was no external source for the bleeding, there was blood within the rectum on digital exam. The patient was not toxic or febrile. Patient received IV saline, 500 cc. He received IV Tylenol for pain. The patient presents with rectal bleeding. He has been bleeding for over 24 hours. He has colitis on imaging. Given his presentation, given the concerns for worsening of his situation, hospitalization was felt warranted. I spoke with the patient and case management, the on-call hospitalist was consulted. Prior/Outside records/notes reviewed: Primary care note from 04/15/2023 discussing his chronic issues and his small cell lung cancer treatment. ECG per my interpretation: Indication was GI bleeding. The ECG shows a normal sinus rhythm with a rate of 76. There is no ST elevation, no PVCs. The QTc is 429. Continuous Cardiac Monitoring per my interpretation: An order was placed for continuous cardiac monitoring. The monitor shows a rate of 95 with normal sinus rhythm. Imaging/x-ray results per my interpretation: Chest x-ray shows some findings of COPD, there was no pneumonia or CHF. Chronic Medical/Social conditions affecting care: Metastatic small cell lung cancer. Care/Management discussed with: Case management, the on-call hospitalist. Level of care consideration(s): After review of the information above and other included data: --I believe the patient requires escalation of care to admission DISPOSITION: Admission Past Med/Surg History Medical History Brain metastasis Port-A-Cath in place (~10/02/21) Insertion of Access Port with Fluoroscopy(Left) - Koby Ivey, DO 10/02/2021 Atelectasis of left lung 09/19/21- PT STATES PARTIALLY COLLAPSED On anticoagulant therapy XARELTO AND ASA History of back problems Small cell lung cancer dx 08/19/2021--JACKIE- currently undergoing chemo every third week for 5 days straight on that third week at the cancer care center Exertional shortness of breath Chronic cough COPD with emphysema Paroxysmal atrial fibrillation controlled w/ medication, follows w/ Fabrice Farfanr last visit 03/2022 Arthritis Skin cancer REMOVED FROM LEFT HAND Allergic rhinitis Hyperlipemia Surgical History S/P bronchoscopy SEPTEMBER 01, [address] [facility] History of colonoscopy History of tooth extraction S/P radiofrequency ablation operation for arrhythmia "UNSUCCESSFUL" 10/01/2017 >FOLLOWS WITH [place] [facility] LAST 07/2021- CURRENTLY STOPPED XARELTO DUE TO NOSE BLEEDS Hx of tonsillectomy H/O knee surgery LEFT Family History Father Diabetes Cardiac disorder Myocardial infarction Lung cancer Hypertension Mother Ovarian cancer Dementia Grandmother (Paternal) Diabetes Grandfather (Paternal) Diabetes Denies family history of Prostate cancer Breast cancer Colorectal cancer Social History Smoking Status: Current every day smoker Tobacco Type: Cigarettes Age Started Using Tobacco: 24; Age Quit Using Tobacco: 71; packs per day: 0.5; Cigarettes Per Day: 20; Second Hand Exposure: No; Do You Dip or Chew Tobacco: No; Hx Alcohol Use: No Hx Substance Use: No Preferred Language: Ukrainian Communication Ability: Effective Visual Impairment: Limited Hearing Ability: Normal Cna Required: No Beliefs That Will Affect Care: None marital status: Single Current Living Situation: Alone Current Living Situation Comment: FRIENDS TO HELP 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 How many Children do You have: 1 Feels Safe at Home: Yes Childhood Exposure to Second-Hand Smoke: Yes Diet: regular caffeine: Yes during the past year weight has: remained stable Dental Care, Regularly: No Physical Activity Frequency: 1-2 Times per Week Seatbelt Use: always Sunscreen Use: Yes Gender Identity: Male Assistive Devices: Glasses and Walker Allergies Allergies Allergy/AdvReac Type Severity Reaction Status Date / Time No Known Allergies Allergy Verified 05/22/23 10:18 Home Meds Home Medications Medication Instructions Recorded Confirmed multivitamin 1 tab PO QAM 10/02/19 05/22/23 fluticasone propionate 50 1 spray intranasal UD PRN SINUS 09/28/21 05/22/23 mcg/actuation nasal CONGESTION spray,suspension (Allergy Relief (fluticasone)) polyethylene glycol 3350 17 gram 17 g PO DAILY PRN Constipation 05/15/22 05/22/23 oral powder packet (Miralax) ondansetron HCl 8 mg tablet 8 mg PO Q8H PRN Nausea And Vomiting 09/21/22 05/22/23 prochlorperazine maleate 10 mg 10 mg PO Q6H PRN Nausea And 09/21/22 05/22/23 tablet (Compazine) Vomiting docusate sodium 100 mg capsule 100 mg PO BID 12/13/22 05/22/23 (Colace) Previous Rx's Medication Instructions Recorded aspirin 81 mg tablet,delayed 81 mg PO DAILY #30 tabs 05/25/19 release albuterol sulfate 90 mcg/actuation 2 puff inhalation Q6H PRN 07/23/22 aerosol inhaler Shortness Of Breath Or Wheezing #18 grams flecainide 100 mg tablet 100 mg PO Q12H #180 tabs 08/27/22 metoprolol tartrate 50 mg tablet 50 mg PO BID #180 tabs 02/04/23 tramadol 50 mg tablet 50 mg PO Q6H PRN Pain #60 tabs 02/04/23 pravastatin 40 mg tablet 40 mg PO QPM #90 tabs 03/25/23 Results & Data (ED) Vital Signs Vital Signs - 24 hr 05/22/23 07:33 05/22/23 08:19 05/22/23 08:19 Temperature 36.6 C 36.8 C Temperature Source Temporal Artery Scan Oral Pulse Rate 95 H 74 Pulse Rate [Right Finger] 74 Pulse Rhythm Regular Pulse Rhythm [Right Finger] Regular Pulse Strength [Right Finger] Normal Respiratory Rate 18 18 18 Respiratory Effort / Characteristics Non-Labored Spontaneous Non-Labored Spontaneous Respiratory Depth Normal Normal Respiratory Pattern Regular Regular Blood Pressure 120/92 Blood Pressure [Right Arm] 107/76 Blood Pressure Mean 101 Blood Pressure Mean [Right Arm] 86 Blood Pressure Position Lying Blood Pressure Position [Right Arm] Semi-fowlers Pulse Oximetry 96 98 97 Oxygen Delivery Method Room Air Room Air Room Air Sepsis Recent Fever Within 48 Hours No Sepsis New/Unexplained Change in Mental Status N/A Sepsis Action Taken by Nursing No Action Required 05/22/23 08:51 05/22/23 10:00 Temperature 36.8 C Temperature Source Oral Pulse Rate 69 Pulse Rate [Right Finger] 74 Pulse Rhythm Pulse Rhythm [Right Finger] Regular Pulse Strength [Right Finger] Normal Respiratory Rate 18 Respiratory Effort / Characteristics Non-Labored Spontaneous Respiratory Depth Normal Respiratory Pattern Regular Blood Pressure Blood Pressure [Right Arm] 103/54 L Blood Pressure Mean Blood Pressure Mean [Right Arm] 70 Blood Pressure Position Blood Pressure Position [Right Arm] Semi-fowlers Pulse Oximetry 97 Oxygen Delivery Method Room Air Sepsis Recent Fever Within 48 Hours Sepsis New/Unexplained Change in Mental Status Sepsis Action Taken by Intermediate Medications Current Medication List: was personally reviewed by me Laboratory Data Attestation: I reviewed the patient's lab results. 05/22/23 08:22 05/22/23 08:22 Lab Results 05/22/23 05/22/23 Range/Units 08:22 10:11 WBC 15.14 H (4.8-10.8) K/ul RBC 4.06 L (4.70-6.10) M/uL Hgb 13.2 L (14.0-18.0) g/dl Hct 38.7 L (42.0-52.0) % MCV 95.3 (80.0-100.0) fL MCH 32.5 (25.0-34.0) pg MCHC 34.1 (32.0-36.0) g/dL RDW Std Deviation 48.6 H (36.4-46.3) fL RDW Coeff of Gagandeep 13.9 (11.5-14.5) % Plt Count 232 (130-400) K/uL MPV 9.9 (9.4-12.4) fL Immature Gran % (Auto) 1.3 % Neut % (Auto) 78.6 % Lymph % (Auto) 12.5 % Milam % (Auto) 5.0 % Eos % (Auto) 1.7 % Baso % (Auto) 0.9 % Neut # (Auto) 11.90 H (1.40-6.50) K/uL Lymph # (Auto) 1.90 (1.20-3.40) K/uL Milam # (Auto) 0.75 H (0.11-0.59) K/uL Eos # (Auto) 0.26 (0.00-0.50) K/uL Baso # (Auto) 0.14 (0.00-0.20) K/uL Immature Gran # (Auto) 0.19 (0.01-0.20) K/uL PT 11.2 (9.0-12.0) Seconds INR 1.0 (0.9-1.1) APTT 28 (21-31) Seconds PTT Ratio 1.0 Sodium 135 L (136-145) mmol/L Potassium 4.0 (3.5-5.1) mmol/L Chloride 105 (98-107) mmol/L Carbon Dioxide 22 (21-32) mmol/L Anion Gap 8 (3-11) BUN 17 (6-23) mg/dl Creatinine 1.02 (0.6-1.4) mg/dl Est Cr Clr Drug Dosing 78.8 ml/min Est GFR ( Amer) 85.3 ml/min Est GFR (Non-Af Amer) 73.6 ml/min BUN/Creatinine Ratio 16.7 (10-20) Glucose 98 (70-99(Fasting)) mg/dl Calcium 8.9 (8.6-10.3) mg/dl Magnesium 2.1 (1.7-2.4) mg/dl Total Bilirubin 0.4 (0.2-1.0) mg/dl AST 13 (13-39) U/L ALT 20 (7-52) U/L Alkaline Phosphatase 128 H (34-104) U/L Troponin I High Sens 8.1 (0-20) pg/ml Total Protein 6.3 (6.0-8.3) gm/dl Albumin 3.9 (3.4-5.0) gm/dl Globulin 2.4 L (2.5-4.0) gm/dl Albumin/Globulin Ratio 1.6 (0.9-2) Stl C. cayetanensis PCR Not Detected (NotDetected) Stool Rotavirus A PCR Not Detected (NotDetected) Stl Adenov F 40/41 PCR Not Detected (NotDetected) Stool Astrovirus (PCR) Not Detected (NotDetected) Stool Campylobacter PCR Not Detected (NotDetected) Stool Cryptosporidium PCR Not Detected (NotDetected) Stl E.coli Shiga Tox PCR Not Detected (NotDetected) Stl Enterotoxigenic E PCR Not Detected (NotDetected) Stool EPEC (PCR) Not Detected (NotDetected) Stool EAEC (PCR) Not Detected (NotDetected) Stl E. histolytica PCR Not Detected (NotDetected) Stool Giardia Lamblia PCR Not Detected (NotDetected) Stool Salmonella PCR Not Detected (NotDetected) Stool Sapovirus (PCR) Not Detected (NotDetected) Stl P. shigelloides PCR Not Detected (NotDetected) Stl Shigella/EIEC PCR Not Detected (NotDetected) St Y.enterocolitica PCR Not Detected (NotDetected) Stool Vibrio (PCR) Not Detected (NotDetected) Stl Vibrio cholerae PCR Not Detected (NotDetected) Stl Norovirus GI/GII PCR Not Detected (NotDetected) Blood Type A Negative Antibody Screen NEGATIVE Administered Medications Ioversol (Optiray 320 125ml) 118 ml IV ONCE ONE Stop: 05/22/23 13:26 Last Admin: 05/22/23 13:19 Dose: 118 ml Documented By: BRVaibhav Discontinued Medications Sodium Chloride (Nss) 500 mls @ 999 mls/hr IV .Q31M JALEESA Stop: 05/22/23 08:15 Last Infusion: 05/22/23 13:09 Dose: Infused Documented By: Admin: 05/22/23 10:14 Dose: 999 mls/hr Documented By: SIMRAN Ioversol (Optiray 320 500ml) 82 ml IV ONCE ONE Stop: 05/22/23 09:58 Last Admin: 05/22/23 09:57 Dose: 82 ml Documented By: ADONIS Imaging Data Radiologist's Impression: Abdomen/Pelvis CT 05/22/23 07:40 CT OF THE ABDOMEN AND PELVIS WITH CONTRAST CLINICAL HISTORY: GI bleed. Lung cancer. COMPARISON STUDY: PET/CT September 05, 2022. CT of the abdomen and pelvis March 25, 2023. TECHNIQUE: Following IV administration of 82 mL of Optiray, axial images of the abdomen and pelvis were obtained from the lung bases to the proximal femurs. Images were reviewed in the axial, sagittal, and coronal planes. IV contrast was administered without complication. Automated exposure control was utilized for the study. A dose lowering technique was utilized adhering to the principles of ALARA. CT DOSE: 1317.92 mGy.cm FINDINGS: Lung bases are unremarkable. No pneumatosis, free air or portal venous gas is present. A few subcentimeter hypodense hepatic lesions are unchanged since initial CT. These are benign. No new hepatic lesions are present. The spleen and pancreas are unremarkable. There is no biliary or pancreatic ductal dilatation. There is no peripancreatic or pericholecystic infiltration. Kidneys are normal. There is no hydronephrosis. Bilateral adrenal lesions are again noted. A 2.7 x 1.3 cm hypodense lesion within the superior aspect of the right adrenal gland has slightly decreased in size since prior CT when it measured 2.8 x 1.5 cm. However, nodular enhancement within the inferior right adrenal gland, measuring 2.5 x 1.2 cm has developed. A lesion within the lateral limb of the left adrenal gland on image 96 has slightly decreased in size, measuring 2.1 x 1 cm. It previously measured 2.5 x 1 cm. However, a lesion within the medial limb of the left adrenal gland on image 86 has slightly increased in size, measuring 1.4 x 1.2 cm, previously 1.2 x 1 cm. There is extensive aortoiliac atherosclerotic plaque. The proximal mesenteric vessels are patent. No evidence for a bowel obstruction. There has been interval development of moderate circumferential wall thickening of the descending colon and proximal sigmoid colon since prior CT. There is mild pericolonic infiltration and a small amount of fluid within the pelvis. No abscess is present. No abdominal or pelvic lymphadenopathy is present. IMPRESSION: 1. Interval development of moderate circumferential wall thickening of the descending and proximal sigmoid colon with mild pericolonic stranding and a small amount of fluid. The findings represent a colitis. Although nonspecific, this distribution raises the possibility of ischemic colitis. No free air. No abscess. 2. Findings suggestive of mixed treatment response within multiple bilateral adrenal metastases, as described above. The previously described adrenal metastases have slightly decreased in size while nodular thickening within portions of the adrenal glands has developed. These can be assessed on follow-up CT. 3. No additional sites of metastatic disease within the abdomen or pelvis. ACT 112: Negative or not required by law. Electronically signed by: Stan Link M.D. 05/22/2023 10:37 AM Chest X-Ray 05/22/23 07:40 XR chest 1V portable HISTORY: 72 years-old Male weakness acute weakness COMPARISON: Chest CT 03/25/2023 TECHNIQUE: AP view of the chest FINDINGS: Cardiac silhouette is within normal limits. Left suprahilar opacity is again noted and better seen on the prior CT study. Pulmonary emphysema.. No pneumothorax, pleural effusion or airspace consolidation. Left subclavian [id number] catheter. Bones appear grossly intact. Healed chronic right-sided rib fractures. IMPRESSION: 1. No acute processes of the chest. 2. Left suprahilar lesion is better seen on the prior chest CT. 3. Emphysema. ACT 112: Negative or not required by law. The above report was generated using voice recognition software. It may contain grammatical, syntax or spelling errors. Electronically signed by: Ashwin Dennis M.D. 05/22/2023 8:26 AM Discharge Plan Visit Data Chief Complaint: Rectal Bleed Stated Complaint: RECTAL BLEEDING, FEVER, ABD PAIN ED Provider: Javi Yang Discharge Problem: Rectal bleeding, Anemia, Colitis, Leukocytosis Patient Disposition: Admitted As Inpatient Condition: Fair Discharge Problem: Anemia Qualifiers: Anemia type: unspecified type Qualified Code(s): D64.9 - Anemia, unspecified Leukocytosis Qualifiers: Leukocytosis type: unspecified Qualified Code(s): D72.829 - Elevated white blood cell count, unspecified
--- NOTE | 2023-05-22 08:28 | XRay Report ---
XR chest 1V portable HISTORY: 72 years-old Male weakness acute weakness COMPARISON: Chest CT 03/25/2023 TECHNIQUE: AP view of the chest FINDINGS: Cardiac silhouette is within normal limits. Left suprahilar opacity is again noted and better seen on the prior CT study. Pulmonary emphysema.. No pneumothorax, pleural effusion or airspace consolidatio n. Left subclavian [id number]-Bypa catheter. Bones appear grossly intact. Healed chronic right-sided ri b fractures. IMPRESSION: 1. No acute processes of the chest. 2. Left suprahilar lesion is better seen on the prior chest CT. 3. Emphysema. ACT 112: Negative or not required by law. The above report was generated using voice recognition software. It may contain grammatical, syntax o r spelling errors. Electronically signed by: Ashwin Dennis M.D. 05/22/2023 8:26 AM
[2023-05-22 09:06] LABS: Hematocrit (blood only) 38.7 % (42.0-52.0); Hemoglobin 13.2 g/dl (14.0-18.0); Mean Corpuscular Hemoglobin 32.5 pg (25.0-34.0); Mean Corpuscular Hgb Conc 34.1 g/dL (32.0-36.0); Mean Corpuscular Volume 95.3 fL (80.0-100.0); Mean Platelet Volume 9.9 fL (9.4-12.4); Platelet Count 232 K/uL (130-400); RDW Coefficient of Variation 13.9 % (11.5-14.5); RDW Standard Deviation 48.6 fL (36.4-46.3); Red Blood Count 4.06 M/uL (4.70-6.10); White Blood Count 15.14 K/ul (4.8-10.8)
[2023-05-22 09:24] LABS: Troponin I High Sensitivity 8.1 pg/ml (0-20)
[2023-05-22 09:30] LABS: Albumin Level 3.9 gm/dl (3.4-5.0); Bilirubin,Total 0.4 mg/dl (0.2-1.0); Calcium 8.9 mg/dl (8.6-10.3); Magnesium 2.1 mg/dl (1.7-2.4)
[2023-05-22 09:33] LABS: Basophils # (auto) 0.14 K/uL (0.00-0.20); Basophils % (auto) 0.9 %; Eosinophils # (auto) 0.26 K/uL (0.00-0.50); Eosinophils % (auto) 1.7 %; Immature Granulocytes # (auto) 0.19 K/uL (0.01-0.20); Immature Granulocytes % (auto) 1.3 %; Lymphocytes % (auto) 12.5 %; Monocytes # (auto) 0.75 K/uL (0.11-0.59); Neutrophils % (auto) 78.6 %
[2023-05-22 09:36] LABS: Albumin Globulin Ratio 1.6 (0.9-2); BUN Creatinine Ratio 16.7 (10-20); Creatinine Clr Calc Pharmacy 78.8 ml/min; Est GFR (African American) 85.3 ml/min; Est GFR (Non-African American) 73.6 ml/min; Globulin 2.4 gm/dl (2.5-4.0); Total Protein 6.3 gm/dl (6.0-8.3)
[2023-05-22 09:41] LABS: Partial Thromboplastin Time 28 Seconds (21-31); Prothrombin Time 11.2 Seconds (9.0-12.0)
[2023-05-22] MEDS ORDERED: OPTIRAY 320 500ml IV ONE (09:57)
--- NOTE | 2023-05-22 10:38 | CT Scan Report ---
CT OF THE ABDOMEN AND PELVIS WITH CONTRAST CLINICAL HISTORY: GI bleed. Lung cancer. COMPARISON STUDY: PET/CT September 05, 2022. CT of the abdomen and pelvis March 25, 2023. TECHNIQUE: Following IV administration of 82 mL of Optiray, axial images of the abdomen and pelvis we re obtained from the lung bases to the proximal femurs. Images were reviewed in the axial, sagittal, and coronal planes. IV contrast was administered without complication. Automated exposure control wa s utilized for the study. A dose lowering technique was utilized adhering to the principles of ALARA . CT DOSE: 1317.92 mGy.cm FINDINGS: Lung bases are unremarkable. No pneumatosis, free air or portal venous gas is present. A fe w subcentimeter hypodense hepatic lesions are unchanged since initial CT. These are benign. No new he patic lesions are present. The spleen and pancreas are unremarkable. There is no biliary or pancreati c ductal dilatation. There is no peripancreatic or pericholecystic infiltration. Kidneys are normal. There is no hydronephrosis. Bilateral adrenal lesions are again noted. A 2.7 x 1.3 cm hypodense lesio n within the superior aspect of the right adrenal gland has slightly decreased in size since prior CT when it measured 2.8 x 1.5 cm. However, nodular enhancement within the inferior right adrenal gland, measuring 2.5 x 1.2 cm has developed. A lesion within the lateral limb of the left adrenal gland on image 96 has slightly decreased in size, measuring 2.1 x 1 cm. It previously measured 2.5 x 1 cm. How ever, a lesion within the medial limb of the left adrenal gland on image 86 has slightly increased in size, measuring 1.4 x 1.2 cm, previously 1.2 x 1 cm. There is extensive aortoiliac atherosclerotic p laque. The proximal mesenteric vessels are patent. No evidence for a bowel obstruction. There has bee n interval development of moderate circumferential wall thickening of the descending colon and proxim al sigmoid colon since prior CT. There is mild pericolonic infiltration and a small amount of fluid w ithin the pelvis. No abscess is present. No abdominal or pelvic lymphadenopathy is present. IMPRESSION: 1. Interval development of moderate circumferential wall thickening of the descending and proximal si gmoid colon with mild pericolonic stranding and a small amount of fluid. The findings represent a col itis. Although nonspecific, this distribution raises the possibility of ischemic colitis. No free air . No abscess. 2. Findings suggestive of mixed treatment response within multiple bilateral adrenal metastases, as d escribed above. The previously described adrenal metastases have slightly decreased in size while nod ular thickening within portions of the adrenal glands has developed. These can be assessed on follow- up CT. 3. No additional sites of metastatic disease within the abdomen or pelvis. ACT 112: Negative or not required by law. Electronically signed by: Stan Link M.D. 05/22/2023 10:37 AM
--- NOTE | 2023-05-22 11:25 | History & Physical Report ---
Date of Service May 22, 2023 Assessment & Plan (1) Rectal bleeding: Plan: -Admit to med/tele -Currently hemodynamically stable and non-toxic appearing -Presented to the ED with approximately 8 episodes of bloody diarrhea/rectal bleeding over the past 24 hours -He does have associated abdominal pain prior to the episodes of diarrhea, but he is essentially pain free at rest -Noted to have a leukocytosis of 15 with neutrophil predominance today, but he also received Neulasta on 05/16 -Denies recent fevers or chills -Hgb stable -No other anticoagulants/antiplatelets besides aspirin -CT of the abd/pelvis w/con shows signs of colitis, can't rule out ischemic colitis at this time -Will order a stat lactate level and consult General Surgery to evaluate -Keep NPO until evaluated by General Surgery -Was evaluated by GI, appreciate their assistance >Will continue Cipro and flagyl ordered by GI team as patient is immunocompromised -GI has ordered a CTA of the abd/pelvis, will follow -S/P 500 mL NSS in the ED -Will start maintenance Plasmalyte while NPO -PRN tylenol for pain to start as his discomfort is currently mild -Hold chemical DVT PPX for now -AM CBC, CMP, mag, PT/INR (2) PSVT (paroxysmal supraventricular tachycardia): Plan: -Currently in NSR -Not on anticoagulation due to current brain mets -Continue metoprolol and flecainide (3) COPD with emphysema: Plan: -Stable on RA -Lungs are clear -Incentive spirometry -PRN albuterol (4) Small cell lung cancer: Plan: -With mets to the brain and adrenal glands -S/P lubrinectedin infusion on 05/16 -Also received Neulasta infusion on 05/16 -Continue to follow with Oncology (5) Central line clotted: Plan: -Patient notes that his mediport is getting recurrent clogs -Has been getting flushed with Alteplase at his Chemotherapy appointments -Evaluated by IV team in the ED today, recs another push of Alteplase, ordered -Continue to monitor for recurrent clogs Plan The patient was discussed with Dr. 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 In the ED he was noted to have a BP of 103/54 but was otherwise stable. Labs were significant for a leukocytosis of 15 with neutrophil predominance of 11, stable Hgb of 13.2, Cr and BUN WNL, alk phos of 128. Chest xray was read as "1. No acute processes of the chest. 2. Left suprahilar lesion is better seen on the prior chest CT. 3. Emphysema.". CT of the abd/pelvis w/con was read as "1. Interval development of moderate circumferential wall thickening of the descending and proximal sigmoid colon with mild pericolonic stranding and a small amount of fluid. The findings represent a colitis. Although nonspecific, this distribution raises the possibility of ischemic colitis. No free air. No abscess. 2. Findings suggestive of mixed treatment response within multiple bilateral adrenal metastases, as described above. The previously described adrenal metastases have slightly decreased in size while nodular thickening within portions of the adrenal glands has developed. These can be assessed on follow-up CT. 3. No additional sites of metastatic disease within the abdomen or pelvis.". Prior to admission the patient was given 500 mL NSS. At the time of the exam the patient was sitting in bed in no acute distress. He states that he had been deal with multiple days of constipation when he developed central abdominal pain and had a large episode of non-bloody diarrhea yesterday. Following this episode, he had approximately 6 episodes of eric bloody per the rectum with bowel movements. When asked, he states that he will develop the central abdominal pain prior to the episodes, this pain is mainly relieved after having a bowel movements. He denies recent fever, chills, cough, SOB, vomiting, dysuria, hematuria, melena, LE swelling, and recent trauma. When asked, he states that he is no longer on anticoagulation with his afib due to his known brain mets. He was previously on steroids for the brain mets but has not been on a course recently. His last infusion of chemotherapy was on 05/16/23. He had a dose of Neulasta after chemotherapy on 05/16 as well. At rest he has little to no abdominal pain at this time. He did take his am medications which includes a baby aspirin. He is a DNR/DNI. -Last colonoscopy was approximately 3 years ago, states he did not have abnormalities Please refer to Dr. Mcgee's attestation for any changes to the treatment plan Allergies Allergy/AdvReac Type Severity Reaction Status Date / Time No Known Allergies Allergy Verified 05/22/23 10:18 Home Medications Medication Instructions Recorded Confirmed Type aspirin 81 mg tablet,delayed 81 mg PO DAILY #30 tabs 05/25/19 05/22/23 Rx release multivitamin 1 tab PO QAM 10/02/19 05/22/23 History fluticasone propionate 50 1 spray intranasal UD PRN SINUS 09/28/21 05/22/23 History mcg/actuation nasal CONGESTION spray,suspension (Allergy Relief (fluticasone)) polyethylene glycol 3350 17 gram 17 g PO DAILY PRN Constipation 05/15/22 05/22/23 History oral powder packet (Miralax) albuterol sulfate 90 mcg/actuation 2 puff inhalation Q6H PRN 07/23/22 05/22/23 Rx aerosol inhaler Shortness Of Breath Or Wheezing #18 grams flecainide 100 mg tablet 100 mg PO Q12H #180 tabs 08/27/22 05/22/23 Rx ondansetron HCl 8 mg tablet 8 mg PO Q8H PRN Nausea And Vomiting 09/21/22 05/22/23 History prochlorperazine maleate 10 mg 10 mg PO Q6H PRN Nausea And 09/21/22 05/22/23 Hi story tablet (Compazine) Vomiting docusate sodium 100 mg capsule 100 mg PO BID 12/13/22 05/22/23 History (Colace) metoprolol tartrate 50 mg tablet 50 mg PO BID #180 tabs 02/04/23 05/22/23 Rx tramadol 50 mg tablet 50 mg PO Q6H PRN Pain #60 tabs 02/04/23 05/22/23 Rx pravastatin 40 mg tablet 40 mg PO QPM #90 tabs 03/25/23 05/22/23 Rx Past Med/Surg History Medical History Brain metastasis Port-A-Cath in place (~10/02/21) Insertion of Access Port with Fluoroscopy(Left) - Koby Ivey, DO 10/02/2021 Atelectasis of left lung 09/19/21- PT STATES PARTIALLY COLLAPSED On anticoagulant therapy XARELTO AND ASA History of back problems Small cell lung cancer dx 08/19/2021--JACKIE- currently undergoing chemo every third week for 5 days straight on that third week at the cancer care center Exertional shortness of breath Chronic cough COPD with emphysema Paroxysmal atrial fibrillation controlled w/ medication, follows w/ Kisouleymane BerryOlga last visit 03/2022 Arthritis Skin cancer REMOVED FROM LEFT HAND Allergic rhinitis Hyperlipemia Surgical History S/P bronchoscopy SEPTEMBER 01, 2021 AT [facility] History of colonoscopy History of tooth extraction S/P radiofrequency ablation operation for arrhythmia "UNSUCCESSFUL" 10/01/2017 >FOLLOWS WITH [place] [facility] LAST 07/2021- CURRENTLY STOPPED XARELTO DUE TO NOSE BLEEDS Hx of tonsillectomy H/O knee surgery LEFT Family History Father Diabetes Cardiac disorder Myocardial infarction Lung cancer Hypertension Mother Ovarian cancer Dementia Grandmother (Paternal) Diabetes Grandfather (Paternal) Diabetes Denies family history of Prostate cancer Breast cancer Colorectal cancer Social History Smoking Status: Former smoker Tobacco Type: Cigarettes Age Started Using Tobacco: 24; Age Quit Using Tobacco: 71; packs per day: 0.5; Cigarettes Per Day: 20; Second Hand Exposure: No; Do You Dip or Chew Tobacco: No; Hx Alcohol Use: Yes Alcohol type: beer Alcohol Intake Frequency: Monthly or Less Alcohol Intake Frequency Comment: Once a week Hx Substance Use: No Preferred Language: Luxembourgish Communication Ability: Effective Visual Impairment: Limited Hearing Ability: Normal Arranger Assembler Required: No Beliefs That Will Affect Care: None marital status: Single Current Living Situation: Alone Current Living Situation Comment: FRIENDS TO HELP 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 How many Children do You have: 1 Other Information That Helps Us Care for You: No Feels Safe at Home: Yes Safety Concerns: Feels Safe At This Time Childhood Exposure to Second-Hand Smoke: Yes Diet: regular caffeine: Yes during the past year weight has: remained stable Dental Care, Regularly: No Physical Activity Frequency: 1-2 Times per Week Seatbelt Use: always Sunscreen Use: Yes Gender Identity: Male Assistive Devices: Glasses and Walker Physical Exam Physical Exam: Physical Exam: General: In no acute distress, stated age, well-nourished, good hygiene, non- toxic appearing HEENT: Normocephalic, atraumatic, no scleral icterus, pupils around round, symmetrical, and reactive to light, moist mucus membranes, trachea midline, no thyromegaly Chest/Pulm: Mediport located in the left upper chest is without signs of infection, (patient states that it has clogged multiple times recently. No respiratory distress, symmetrical chest expansion, clear breath sounds throughout Cardiac: RRR, no murmurs noted Abdomen: Negative for ascites and bruising, hypoactive bowel sounds, soft, non-tender to palpation throughout Musculoskeletal: Symmetrical and without signs of acute trauma, upper and lower extremities with full ROM, no atrophy, spasticity, or flaccidity Extremities: Radial, dorsalis pedis, and posterior tibial pulses are intact and symmetrical, no edema noted in the BL LE's Skin: Warm, dry, no rashes , lesions, or scars noted Neuro: Alert and oriented to person, place, month, year, and president, no focal defects, CN II-XII tested and intact, finger to nose test negative, no tremors noted Psych: No acute distress, calm and cooperative during the exam Results & Data Results & Data Vital Signs (Past 12 Hours) Vital Signs Temp Pulse Pulse Resp BP BP Pulse Ox 05/22/23 10:00 36.8 C 74 18 103/54 L 97 05/22/23 08:51 69 05/22/23 08:19 74 18 97 05/22/23 08:19 36.8 C 74 18 107/76 98 05/22/23 07:33 36.6 C 95 H 18 120/92 96 O2 Del Method 05/22/23 10:00 Room Air 05/22/23 08:51 05/22/23 08:19 Room Air 05/22/23 08:19 Room Air 05/22/23 07:33 Room Air Laboratory Results Abnormal lab results 05/22/23 Range/Units 08:22 WBC 15.14 H (4.8-10.8) K/ul RBC 4.06 L (4.70-6.10) M/uL Hgb 13.2 L (14.0-18.0) g/dl Hct 38.7 L (42.0-52.0) % RDW Std Deviation 48.6 H (36.4-46.3) fL Neut # (Auto) 11.90 H (1.40-6.50) K/uL [place] # (Auto) 0.75 H (0.11-0.59) K/uL Sodium 135 L (136-145) mmol/L Alkaline Phosphatase 128 H (34-104) U/L Globulin 2.4 L (2.5-4.0) gm/dl Diagnostic Findings Abdomen/Pelvis CT 05/22/23 07:40 CT OF THE ABDOMEN AND PELVIS WITH CONTRAST CLINICAL HISTORY: GI bleed. Lung cancer. COMPARISON STUDY: PET/CT September 05, 2022. CT of the abdomen and pelvis March 25, 2023. TECHNIQUE: Following IV administration of 82 mL of Optiray, axial images of the abdomen and pelvis were obtained from the lung bases to the proximal femurs. Images were reviewed in the axial, sagittal, and coronal planes. IV contrast was administered without complication. Automated exposure control was utilized for the study. A dose lowering technique was utilized adhering to the principles of ALARA. CT DOSE: 1317.92 mGy.cm FINDINGS: Lung bases are unremarkable. No pneumatosis, free air or portal venous gas is present. A few subcentimeter hypodense hepatic lesions are unchanged since initial CT. These are benign. No new hepatic lesions are present. The spleen and pancreas are unremarkable. There is no biliary or pancreatic ductal dilatation. There is no peripancreatic or pericholecystic infiltration. Kidneys are normal. There is no hydronephrosis. Bilateral adrenal lesions are again noted. A 2.7 x 1.3 cm hypodense lesion within the superior aspect of the right adrenal gland has slightly decreased in size since prior CT when it measured 2.8 x 1.5 cm. However, nodular enhancement within the inferior right adrenal gland, measuring 2.5 x 1.2 cm has developed. A lesion within the lateral limb of the left adrenal gland on image 96 has slightly decreased in size, measuring 2.1 x 1 cm. It previously measured 2.5 x 1 cm. However, a lesion within the medial limb of the left adrenal gland on image 86 has slightly increased in size, measuring 1.4 x 1.2 cm, previously 1.2 x 1 cm. There is extensive aortoiliac atherosclerotic plaque. The proximal mesenteric vessels are patent. No evidence for a bowel obstruction. There has been interval development of moderate circumferential wall thickening of the descending colon and proximal sigmoid colon since prior CT. There is mild pericolonic infiltration and a small amount of fluid within the pelvis. No abscess is present. No abdominal or pelvic lymphadenopathy is present. IMPRESSION: 1. Interval development of moderate circumferential wall thickening of the descending and proximal sigmoid colon with mild pericolonic stranding and a small amount of fluid. The findings represent a colitis. Although nonspecific, this distribution raises the possibility of ischemic colitis. No free air. No abscess. 2. Findings suggestive of mixed treatment response within multiple bilateral adrenal metastases, as described above. The previously described adrenal metastases have slightly decreased in size while nodular thickening within portions of the adrenal glands has developed. These can be assessed on follow-up CT. 3. No additional sites of metastatic disease within the abdomen or pelvis. ACT 112: Negative or not required by law. Electronically signed by: Stan Link M.D. 05/22/2023 10:37 AM Chest X-Ray 05/22/23 07:40 XR chest 1V portable HISTORY: 72 years-old Male weakness acute weakness COMPARISON: Chest CT 03/25/2023 TECHNIQUE: AP view of the chest FINDINGS: Cardiac silhouette is within normal limits. Left suprahilar opacity is again noted and better seen on the prior CT study. Pulmonary emphysema.. No pneumothorax, pleural effusion or airspace consolidation. Left subclavian Infus e-a-Port catheter. Bones appear grossly intact. Healed chronic right-sided rib fractures. IMPRESSION: 1. No acute processes of the chest. 2. Left suprahilar lesion is better seen on the prior chest CT. 3. Emphysema. ACT 112: Negative or not required by law. The above report was generated using voice recognition software. It may contain grammatical, syntax or spelling errors. Electronically signed by: Ashwin Dennis M.D. 05/22/2023 8:26 AM ECG Additional Comments: Normal sinus rhythm Normal ECG When compared with ECG of 15-MAY-2022 11:37, T wave inversion no longer evident in Inferior leads T wave inversion no longer evident in Anterior leads Code Status & VTE Plan Code Status DNR/DNI VTE Prophylaxis Plan VTE Prophylaxis will be ordered: Yes Supervising Physician Co-Signing Physician Notes I personally saw and examined the patient. I verified all foreman points and agree with Brennon Stallworth PA-C with the following exceptions and/or additions: 72-year-old male presents to the ER with rectal bleeding. No chest pain, lightheadedness, dizziness. O/E A&Ox3, HS RRR, no murmurs, Chest CTAB, Mild suprapubic pain without guarding or rebound tenderness, BS normal, no CVA tenderness, no unilateral A/P PG Care Time/CCT Total # of Minutes Spent Total Time Spent with Patient: Total time spent is greater than 50% in coordination of care (as documented) at patient's floor/unit and/or counseling patient: Coding [place] [address] INT INP/OBS CARE 3/75MIN Patient Type Established Medical Decision Making High Complexity Diagnoses Rectal bleeding K62.5 PSVT (paroxysmal supraventricular tachycardia) I47.1 COPD with emphysema J43.9 Small cell lung cancer C34.90 Central line clotted T82.594A
--- NOTE | 2023-05-22 11:26 | Electrocardiogram Report ---
Test Reason : Blood Pressure : / mmHG Vent. Rate : 076 BPM Atrial Rate : 076 BPM P-R Int : 164 ms QRS Dur : 090 ms QT Int : 382 ms P-R-T Axes : 077 042 053 degrees QTc Int : 429 ms Normal sinus rhythm Normal ECG When compared with ECG of 15-MAY-2022 11:37, T wave inversion no longer evident in Inferior leads T wave inversion no longer evident in Anterior leads Confirmed by Romaine Maldonado ([id number]) on 05/22/2023 11:25:40 AM Referred By: REFERRED SELF Confirmed By:Beltran Maldonado
[2023-05-22] MEDS ORDERED: ACETAMINOPHEN 1,000 MG/100 ML VIAL IV PRN (11:45)
[2023-05-22] MEDS ORDERED: ALTEPLASE, RECOMBINANT 1 MG/ML 2ML VIAL INSTIL STA (12:05)
--- NOTE | 2023-05-22 12:24 | Surgery Consultation ---
Date of Consultation May 22, 2023 Assessment & Plan (1) Rectal bleeding: This is a 72y M with a PMH COPD, afib, small cell lung cancer, ex-smoker, HLD, who presents to the [facility] ED on 05/22/23 with complaints of blood per rectum and abdominal pain that began yesterday. He presented to the ER due to ongoing s ymptoms and a CT a/p was obtained that revealed "interval development of moderate circumferential wall thickening of the descending and proximal sigmoid colon with mild pericolonic stranding and a small amount of fluid. The findings represent a colitis. Although nonspecific, this distribution raises the possibility of ischemic colitis. No free air. No abscess.". Labs show WBC 15, Hbg 13, Cr 1, lactate normal at 0.9. Vitals are stable with HRs 70-90s and BPs with SBP 100s. Stool studies are pending. On examination belly is soft, non peritonitic, with very mild discomfort in mid abdomen. Patient has been feeling better since evaluation in the ER. Agree with trial of supportive measures, bowel rest, NPO with IVF hydration. He has been seen by GI who has started patient on IV cipro/flagyl, ordered stool studies, and a CTA for further examination. No indications for surgical intervention at this time. We will follow. as above. currently no pain. Lactate level normal. pt poor surgical candidate considering stage 4 lung ca. surgery only as a last resort. no urgent indication for surgical intervention. will follow along. History of Present Illness History of Present Illness This is a 72y M with a PMH COPD, afib, small cell lung cancer, ex-smoker, HLD, who presents to the [facility] ED on 05/22/23 with complaints of blood per rectum. Patient states he thought he was running constipated over the last few days, but then had a "blow out" around 10am yesterday of diarrhea. Thereafter he developed multiple bouts of bright red blood per rectum 6-8x, associated with some clot. The patient states this continued into today, therefore he presented to the ER for further evaluation. A CT a/p was obtained that revealed "interval development of moderate circumferential wall thickening of the descending and proximal sigmoid colon with mild pericolonic stranding and a small amount of fluid. The findings represent a colitis. Although nonspecific, this distribution raises the possibility of ischemic colitis. No free air. No abscess." Patient follows with Dr. Miller for his chemotherapy (last dose 05/16) and he gets every 3 week labs. He states he was in the cancer center yesterday and they were aware of his blood per rectum and told him to come in today if it has not resolved, which it has not. The patient said he felt a bit nauseated last night with some dry heaves and mucous, but no true bouts of emesis. + sweats/chills. + abdominal pain rating it a 6/10 in severity, mostly in the mid abdomen. No episodes like this before. Last colonoscopy 3 years ago, no issues. No CP/SOB, headaches or dizziness. Last had some coffee to drink this AM, no food. No prior abdominal surgical history. Still smokes on occasion. Regarding his port he says they need to use cath-flow to be able to use it for his blood draws. Allergies Allergy/AdvReac Type Severity Reaction Status Date / Time No Known Allergies Allergy Verified 05/22/23 10:18 Home Medications Medication Instructions Recorded Confirmed Type aspirin 81 mg tablet,delayed 81 mg PO DAILY #30 tabs 05/25/19 05/22/23 Rx release multivitamin 1 tab PO QAM 10/02/19 05/22/23 History fluticasone propionate 50 1 spray intranasal UD PRN SINUS 09/28/21 05/22/23 History mcg/actuation nasal CONGESTION spray,suspension (Allergy Relief (fluticasone)) polyethylene glycol 3350 17 gram 17 g PO DAILY PRN Constipation 05/15/22 05/22/23 History oral powder packet (Miralax) albuterol sulfate 90 mcg/actuation 2 puff inhalation Q6H PRN 07/23/22 05/22/23 Rx aerosol inhaler Shortness Of Breath Or Wheezing #18 grams flecainide 100 mg tablet 100 mg PO Q12H #180 tabs 08/27/22 05/22/23 Rx ondansetron HCl 8 mg tablet 8 mg PO Q8H PRN Nausea And Vomiting 09/21/22 05/22/23 History prochlorperazine maleate 10 mg 10 mg PO Q6H PRN Nausea And 09/21/22 05/22/23 History tablet (Compazine) Vomiting docusate sodium 100 mg capsule 100 mg PO BID 12/13/22 05/22/23 History (Colace) metoprolol tartrate 50 mg tablet 50 mg PO BID #180 tabs 02/04/23 05/22/23 Rx tramadol 50 mg tablet 50 mg PO Q6H PRN Pain #60 tabs 02/04/23 05/22/23 Rx pravastatin 40 mg tablet 40 mg PO QPM #90 tabs 03/25/23 05/22/23 Rx Patient History Medical History Brain metastasis Port-A-Cath in place (~10/02/21) Insertion of Access Port with Fluoroscopy(Left) - Koby Ivey, DO 10/02/2021 Atelectasis of left lung 09/19/21- PT STATES PARTIALLY COLLAPSED On anticoagulant therapy XARELTO AND ASA History of back problems Small cell lung cancer dx 08/19/2021--JACKIE- currently undergoing chemo every third week for 5 days straight on that third week at the [facility] [place] Exertional shortness of breath Chronic cough COPD with emphysema Paroxysmal atrial fibrillation controlled w/ medication, follows w/ Kip Olga last visit 03/2022 Arthritis Skin cancer REMOVED FROM LEFT HAND Allergic rhinitis Hyperlipemia Surgical History S/P bronchoscopy SEPTEMBER 01, 2021 AT [facility] History of colonoscopy History of tooth extraction S/P radiofrequency ablation operation for arrhythmia "UNSUCCESSFUL" 10/01/2017 >FOLLOWS WITH [place] CARDIO LAST 07/2021- CURRENTLY STOPPED XARELTO DUE TO NOSE BLEEDS Hx of tonsillectomy H/O knee surgery LEFT Family History Father Diabetes Cardiac disorder Myocardial infarction Lung cancer Hypertension Mother Ovarian cancer Dementia Grandmother (Paternal) Diabetes Grandfather (Paternal) Diabetes Denies family history of Prostate cancer Breast cancer Colorectal cancer Social History Smoking Status: Current every day smoker Tobacco Type: Cigarettes Age Started Using Tobacco: 24; Age Quit Using Tobacco: 71; packs per day: 0.5; Cigarettes Per Day: 20; Second Hand Exposure: No; Do You Dip or Chew Tobacco: No; Hx Alcohol Use: No Hx Substance Use: No Preferred Language: Sierra Leonean Communication Ability: Effective Visual Impairment: Limited Hearing Ability: Normal Story Writer Required: No Beliefs That Will Affect Care: None marital status: Single Current Living Situation: Alone Current Living Situation Comment: FRIENDS TO HELP 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 How many Children do You have: 1 Feels Safe at Home: Yes Childhood Exposure to Second-Hand Smoke: Yes Diet: regular caffeine: Yes during the past year weight has: remained stable Dental Care, Regularly: No Physical Activity Frequency: 1-2 Times per Week Seatbelt Use: always Sunscreen Use: Yes Gender Identity: Male Assistive Devices: Glasses and Walker Review of Systems Constitutional: + chills and + sweats; no fever Respiratory: no dyspnea Cardiovascular: no chest pain Gastrointestinal: + abdominal pain, + bloating, + nausea, + diarrhea/loose stools and + blood in stools; no vomiting Physical Exam Physical Exam: awake/alert, no distress Respiratory: normal respiratory effort Gastrointestinal (Abdomen): Inspection/Auscultation: + abdomen distended (mild) Percussion/Palpation: + abdomen tender (mild discomfort in central abdomen) and abdomen soft; no guarding Results & Data Vital Signs (Past 12 Hours) Vital Signs Temp Pulse Pulse Resp BP BP Pulse Ox 05/22/23 10:00 36.8 C 74 18 103/54 L 97 05/22/23 08:51 69 05/22/23 08:19 74 18 97 05/22/23 08:19 36.8 C 74 18 107/76 98 05/22/23 07:33 36.6 C 95 H 18 120/92 96 O2 Del Method 05/22/23 10:00 Room Air 05/22/23 08:51 05/22/23 08:19 Room Air 05/22/23 08:19 Room Air 05/22/23 07:33 Room Air Diagnostic Findings CT OF THE ABDOMEN AND PELVIS WITH CONTRAST CLINICAL HISTORY: GI bleed. Lung cancer. COMPARISON STUDY: PET/CT September 05, 2022. CT of the abdomen and pelvis March 25, 2023. TECHNIQUE: Following IV administration of 82 mL of Optiray, axial images of the abdomen and pelvis were obtained from the lung bases to the proximal femurs. Images were reviewed in the axial, sagittal, and coronal planes. IV contrast was administered without complication. Automated exposure control was utilized for the study. A dose lowering technique was utilized adhering to the principles of ALARA. CT DOSE: 1317.92 mGy.cm FINDINGS: Lung bases are unremarkable. No pneumatosis, free air or portal venous gas is present. A few subcentimeter hypodense hepatic lesions are unchanged since initial CT. These are benign. No new hepatic lesions are present. The spleen and pancreas are unremarkable. There is no biliary or pancreatic ductal dilatation. There is no peripancreatic or pericholecystic infiltration. Kidneys are normal. There is no hydronephrosis. Bilateral adrenal lesions are again noted. A 2.7 x 1.3 cm hypodense lesion within the superior aspect of the right adrenal gland has slightly decreased in size since prior CT when it measured 2.8 x 1.5 cm. However, nodular enhancement within the inferior right adrenal gland, measuring 2.5 x 1.2 cm has developed. A lesion within the lateral limb of the left adrenal gland on image 96 has slightly decreased in size, measuring 2.1 x 1 cm. It previously measured 2.5 x 1 cm. However, a lesion within the medial limb of the left adrenal gland on image 86 has slightly increased in size, measuring 1.4 x 1.2 cm, previously 1.2 x 1 cm. There is extensive aortoiliac atherosclerotic plaque. The proximal mesenteric vessels are patent. No evidence for a bowel obstruction. There has been interval development of moderate circumferential wall thickening of the descending colon and proximal sigmoid colon since prior CT. There is mild pericolonic infiltration and a small amount of fluid within the pelvis. No abscess is present. No abdominal or pelvic lymphadenopathy is present. IMPRESSION: 1. Interval development of moderate circumferential wall thickening of the descending and proximal sigmoid colon with mild pericolonic stranding and a small amount of fluid. The findings represent a colitis. Although nonspecific, this distribution raises the possibility of ischemic colitis. No free air. No abscess. 2. Findings suggestive of mixed treatment response within multiple bilateral adrenal metastases, as described above. The previously described adrenal metastases have slightly decreased in size while nodular thickening within portions of the adrenal glands has developed. These can be assessed on follow-up CT. 3. No additional sites of metastatic disease within the abdomen or pelvis. ACT 112: Negative or not required by law. Electronically signed by: Stan Link M.D. 05/22/2023 10:37 AM PG Care Time/CCT Total # of Minutes Spent Total Time Spent with Patient: Total time spent is greater than 50% in coordination of care (as documented) at patient's floor/unit and/or counseling patient: Coding Level of Care Code 25707 OP VST NEW MOD 45 MIN Diagnoses Rectal bleeding K62.5
--- NOTE | 2023-05-22 12:37 | Gastrointestinal Consultation ---
Date of Consultation May 22, 2023 Assessment & Plan (1) Rectal bleeding: Patient with sudden onset abdominal pain and rectal bleeding. symptoms improving since he has been at the hospital. CT suggestive of ischemic colitis. Discussed case with Dr. Laurent who also saw the patient and advised on plan. - recommend checking a CTA. - start cipro/flagyl. - stool studies already ordered. can await results. 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 Symptoms started the day before. He admits to some baseline constipation from his cancer treatments. He had a larger stool followed by rectal bleeding. He tells me that after this he was just passing blood and no further stool. He was concerned so he came to the ED. He tells me that since he has been here that his bleeding does seem to be slowing down. He has some nausea as well. no emesis. He does have some abdominal pain that he describes as crampy. rest of GI ros are negative. upon evaluation in ED he had CT shown interval development of moderate circumferential wall thickening of the descending and proximal sigmodi colon with mild pericolonic stranding and a small amount of fluud. these fndings represent a colitis. although nonspecific, this distribution raises the possibility of ischemic colitis. 05/22/23 Hgb 13.2, wbc 15.14. lactate 0.9. Allergies Allergy/AdvReac Type Severity Reaction Status Date / Time No Known Allergies Allergy Verified 05/22/23 10:18 Home Medications Medication Instructions Recorded Confirmed Type aspirin 81 mg tablet,delayed 81 mg PO DAILY #30 tabs 05/25/19 05/22/23 Rx release multivitamin 1 tab PO QAM 10/02/19 05/22/23 History fluticasone propionate 50 1 spray intranasal UD PRN SINUS 09/28/21 05/22/23 History mcg/actuation nasal CONGESTION spray,suspension (Allergy Relief (fluticasone)) polyethylene glycol 3350 17 gram 17 g PO DAILY PRN Constipation 05/15/22 05/22/23 History oral powder packet (Miralax) albuterol sulfate 90 mcg/actuation 2 puff inhalation Q6H PRN 07/23/22 05/22/23 Rx aerosol inhaler Shortness Of Breath Or Wheezing #18 grams flecainide 100 mg tablet 100 mg PO Q12H #180 tabs 08/27/22 05/22/23 Rx ondansetron HCl 8 mg tablet 8 mg PO Q8H PRN Nausea And Vomiting 09/21/22 05/22/23 History prochlorperazine maleate 10 mg 10 mg PO Q6H PRN Nausea And 09/21/22 05/22/23 History tablet (Compazine) Vomiting docusate sodium 100 mg capsule 100 mg PO BID 12/13/22 05/22/23 History (Colace) metoprolol tartrate 50 mg tablet 50 mg PO BID #180 tabs 02/04/23 05/22/23 Rx tramadol 50 mg tablet 50 mg PO Q6H PRN Pain #60 tabs 02/04/23 05/22/23 Rx pravastatin 40 mg tablet 40 mg PO QPM #90 tabs 03/25/23 05/22/23 Rx Patient History Medical History Brain metastasis Port-A-Cath in place (~10/02/21) Insertion of Access Port with Fluoroscopy(Left) - Koby Ivey, DO 10/02/2021 Atelectasis of left lung 09/19/21- PT STATES PARTIALLY COLLAPSED On anticoagulant therapy XARELTO AND ASA History of back problems Small cell lung cancer dx 08/19/2021--JACKIE- currently undergoing chemo every third week for 5 days straight on that third [facility] Exertional shortness of breath Chronic cough COPD with emphysema Paroxysmal atrial fibrillation controlled w/ medication, follows w/ Fabrice Espinoza last visit 03/2022 Arthritis Skin cancer REMOVED FROM LEFT HAND Allergic rhinitis Hyperlipemia Surgical History S/P bronchoscopy SEPTEMBER 01, 2021 AT [facility] History of colonoscopy History of tooth extraction S/P radiofrequency ablation operation for arrhythmia "UNSUCCESSFUL" 10/01/2017 >FOLLOWS WITH [place] CARDIO LAST 07/2021- CURRENTLY STOPPED XARELTO DUE TO NOSE BLEEDS Hx of tonsillectomy H/O knee surgery LEFT Family History Father Diabetes Cardiac disorder Myocardial infarction Lung cancer Hypertension Mother Ovarian cancer Dementia Grandmother (Paternal) Diabetes Grandfather (Paternal) Diabetes Denies family history of Prostate cancer Breast cancer Colorectal cancer Social History Smoking Status: Former smoker Tobacco Type: Cigarettes Age Started Using Tobacco: 24; Age Quit Using Tobacco: 71; packs per day: 0.5; Cigarettes Per Day: 20; Second Hand Exposure: No; Do You Dip or Chew Tobacco: No; Hx Alcohol Use: Yes Alcohol type: beer Alcohol Intake Frequency: Monthly or Less Alcohol Intake Frequency Comment: Once a week Hx Substance Use: No Preferred Language: Persian Communication Ability: Effective Visual Impairment: Limited Hearing Ability: Normal Legislative Correspondent Required: No Beliefs That Will Affect Care: None marital status: Single Current Living Situation: Alone Current Living Situation Comment: FRIENDS TO HELP 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 How many Children do You have: 1 Other Information That Helps Us Care for You: No Feels Safe at Home: Yes Safety Concerns: Feels Safe At This Time Childhood Exposure to Second-Hand Smoke: Yes Diet: regular caffeine: Yes during the past year weight has: remained stable Dental Care, Regularly: No Physical Activity Frequency: 1-2 Times per Week Seatbelt Use: always Sunscreen Use: Yes Gender Identity: Male Assistive Devices: Glasses and Walker Review of Systems Review of Systems: All systems reviewed & are unremarkable except as noted in HPI & below Physical Exam Constitutional: WD/WN, vitals as above Respiratory: normal respiratory effort, lungs clear to auscultation Cardiovascular: RRR, no murmur, no edema Gastrointestinal (Abdomen): normal bowel sounds, soft, nontender, no hepatosplenomegaly Skin: no rashes, warm and dry Psychiatric: Orientation: alert and oriented x 3 Affect: euthymic affect Results & Data Vital Signs (Past 12 Hours) Vital Signs Temp Pulse Pulse Resp BP BP Pulse Ox 05/22/23 10:00 98.2 F 74 18 103/54 L 97 05/22/23 08:51 69 05/22/23 08:19 74 18 97 05/22/23 08:19 98.2 F 74 18 107/76 98 05/22/23 07:33 97.9 F 95 H 18 120/92 96 O2 Del Method 05/22/23 10:00 Room Air 05/22/23 08:51 05/22/23 08:19 Room Air 05/22/23 08:19 Room Air 05/22/23 07:33 Room Air PG Care Time/CCT Total # of Minutes Spent Total Time Spent with Patient: Total time spent is greater than 50% in coordination of care (as documented) at patient's floor/unit and/or counseling patient: Coding Level of Care Code 79009 INT INP/OBS CARE 2/55MIN Diagnoses Rectal bleeding K62.5 Time Spent (min) 55
[2023-05-22] MEDS ORDERED: ALBUTEROL HFA 8 GM INHALER INH PRN (13:00)
[2023-05-22] MEDS ORDERED: OPTIRAY 320 125ml IV ONE (13:25)
[2023-05-22 13:26] LABS: Adenovirus F 40/41 PCR Not Detected (NotDetected); Astrovirus PCR Not Detected (NotDetected); Campylobacter PCR Not Detected (NotDetected); Cryptosporidium PCR Not Detected (NotDetected); Cyclospora cayetanensis PCR Not Detected (NotDetected); Entamoeba histolytica PCR Not Detected (NotDetected); Enteroaggregative E.coli(EAEC) Not Detected (NotDetected); Enteropathogenic E.coli (EPEC) Not Detected (NotDetected); Enterotoxigenic E.coli (ETEC) Not Detected (NotDetected); Giardia lamblia PCR Not Detected (NotDetected); Norovirus GI/GII PCR Not Detected (NotDetected); Plesiomonas shigelloides PCR Not Detected (NotDetected); Rotavirus A PCR Not Detected (NotDetected); Salmonella PCR Not Detected (NotDetected); Sapovirus PCR Not Detected (NotDetected); Shiga-like Toxin E.coli (STEC) Not Detected (NotDetected); Shigella/Enteroinvasive E.coli Not Detected (NotDetected); Vibrio cholerae PCR Not Detected (NotDetected); Vibrio species PCR Not Detected (NotDetected); Yersinia enterocolitica PCR Not Detected (NotDetected)
[2023-05-22] MEDS: PLASMA-LYTE A 1,000 ML IV SCH (13:43)
[2023-05-22] MEDS: CIPROFLOXACIN / D5W 400 MG/200 ML BAG IV SCH (13:43)
[2023-05-22] MEDS: metroNIDAZOLE 500 MG/100 ML BAG IV SCH ×2 (13:43→21:36)
--- NOTE | 2023-05-22 14:15 | CT Scan Report ---
CT angio abd pelvis wo/w con CLINICAL HISTORY: Ischemic colitis. COMPARISON STUDY: CT of the abdomen and pelvis March 25, [address] performed earlier today. TECHNIQUE: Unenhanced and arterial phase imaging of the abdomen and pelvis was performed. Intravenous injection of 118 cc of Optiray 320 IV was uneventful. Sagittal and coronal reconstructions were view ed as well as maximal intensity projections on an independent 3-D workstation. Automated exposure con trol was utilized for the study. A dose lowering technique was utilized adhering to the principles o f ALARA. FINDINGS: No pneumatosis, free air or portal venous gas is present. A few subcentimeter hepatic lesio ns are benign. Spleen, kidneys and pancreas are unremarkable. There is no hydronephrosis. Bilateral a drenal lesions are described on CT performed earlier today. Please see that report. Note is again mad e of moderate circumferential wall thickening of the descending colon and proximal sigmoid colon with mild pericolonic stranding in a small amount of fluid. There is extensive atherosclerotic plaque wit hin the abdominal aorta. The caliber of the abdominal aorta is normal. The celiac axis, superior mese nteric artery, inferior mesenteric artery and renal arteries are patent. No arterial occlusion is sharri ntified. There is no aneurysm within the abdomen or pelvis. There is severe stenosis at the origin of the right internal iliac artery. An additional site of severe stenosis within the right internal rolando ac artery is noted. IMPRESSION: 1. Patent mesenteric vessels. Extensive aortoiliac atherosclerotic plaque. 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 2. Left-sided colitis, as described above. Although nonspecific, the distribution favors ischemic col itis. 3. Bilateral adrenal lesions, further described on CT performed earlier today. ACT 112: Negative or not required by law. Electronically signed by: Stan Link M.D. 05/22/2023 2:13 PM
[2023-05-22] MEDS: FLECAINIDE ACETATE 100 MG TABLET PO SCH (15:53)
[2023-05-22] MEDS ORDERED: HEPARIN 100 UNIT/ML 5ML FLUSH FLUSH PRN (18:13)
[2023-05-22] MEDS: METOPROLOL TARTRATE 50 MG TAB PO SCH (21:35)
[2023-05-22] MEDS: PRAVASTATIN SOD 40 MG TAB PO SCH (22:59)
[2023-05-23] MEDS: PLASMA-LYTE A 1,000 ML IV SCH (00:49)
[2023-05-23] MEDS: CIPROFLOXACIN / D5W 400 MG/200 ML BAG IV SCH ×2 (02:24→12:46)
[2023-05-23] MEDS: FLECAINIDE ACETATE 100 MG TABLET PO SCH ×3 (05:24→20:52)
[2023-05-23] MEDS: metroNIDAZOLE 500 MG/100 ML BAG IV SCH ×3 (05:40→20:51)
[2023-05-23 06:19] LABS: Hematocrit (blood only) 35.2 % (42.0-52.0); Hemoglobin 11.9 g/dl (14.0-18.0); Mean Corpuscular Hemoglobin 32.4 pg (25.0-34.0); Mean Corpuscular Hgb Conc 33.8 g/dL (32.0-36.0); Mean Corpuscular Volume 95.9 fL (80.0-100.0); Mean Platelet Volume 9.8 fL (9.4-12.4); Platelet Count 218 K/uL (130-400); RDW Coefficient of Variation 13.9 % (11.5-14.5); RDW Standard Deviation 48.9 fL (36.4-46.3); Red Blood Count 3.67 M/uL (4.70-6.10); White Blood Count 19.62 K/ul (4.8-10.8)
[2023-05-23 06:37] LABS: Albumin Globulin Ratio 1.7 (0.9-2); Albumin Level 3.5 gm/dl (3.4-5.0); BUN Creatinine Ratio 12.2 (10-20); Bilirubin,Total 0.4 mg/dl (0.2-1.0); Calcium 8.4 mg/dl (8.6-10.3); Creatinine Clr Calc Pharmacy 73.6 ml/min; Est GFR (African American) 89.5 ml/min; Est GFR (Non-African American) 77.3 ml/min; Globulin 2.1 gm/dl (2.5-4.0); Magnesium 2.2 mg/dl (1.7-2.4); Potassium 3.8 mmol/L (3.5-5.1); Total Protein 5.6 gm/dl (6.0-8.3)
[2023-05-23 06:45] LABS: Basophils # (auto) 0.18 K/uL (0.00-0.20); Basophils % (auto) 0.9 %; Dohle Bodies 2+; Eosinophils # (auto) 0.26 K/uL (0.00-0.50); Eosinophils % (auto) 1.3 %; INR 1.1 (0.9-1.1); Immature Granulocytes # (auto) 0.23 K/uL (0.01-0.20); Immature Granulocytes % (auto) 1.2 %; Lymphocytes # (auto) 1.92 K/uL (1.20-3.40); Lymphocytes % (auto) 9.8 %; Monocytes # (auto) 1.37 K/uL (0.11-0.59); Neutrophils # (auto) 15.66 K/uL (1.40-6.50); Neutrophils % (auto) 79.8 %; Prothrombin Time 11.7 Seconds (9.0-12.0)
[2023-05-23] MEDS: METOPROLOL TARTRATE 50 MG TAB PO SCH ×2 (08:25→20:52)
[2023-05-23] MEDS: SODIUM CHLORIDE 0.9% 1,000 ML IV SCH ×2 (08:28→20:51)
--- NOTE | 2023-05-23 09:38 | Gastroenterology Progress Note ---
Date of Service May 23, 2023 Assessment & Plan (1) Colitis: Plan: Suspect that this is ischemic colitis. he has seen improvement since admission. discussed case with Dr. Laurent who advised on plan. - continue with lisa/yl. - he will need a referral to vascular surgery as an outpatient for opinion on his CTA findings - I will have my office set up. we reviewed these findings today and patient tells me he is not sure how aggressive he would want to be about this given his small cell cancer lung cancer, but he tells me that he is willing to get an opinion on this. - okay to advance diet to clear liquids. Can see how he tolerates this. Admission and Anticipated Discharge Date Admission Date: May 22, 2023 Subjective Patient still had about 3 episodes of passing blood since yesterday. He tells me that this has been slowing down since admission. He still has some lower abdominal cramping but overall improved. He underwent CTA yesterday showing severe stenosis of the right internal iliac artery. stool studies unremarkable. He tells me he would like to advance diet if possible. rest of GI ros are unremarkable. Review of Systems Review of Systems: All systems reviewed & are unremarkable except as noted in HPI & below Physical Exam Constitutional: WD/WN, vitals as above Respiratory: normal respiratory effort, lungs clear to auscultation Cardiovascular: RRR, no murmur, no edema Gastrointestinal (Abdomen): mild lower abdominal tenderness to palpation, no guarding, soft, normal bowel sounds. Psychiatric: Orientation: alert and oriented x 3 Affect: euthymic affect Results & Data Results & Data Vital Signs (Past 12 Hours) Vital Signs Temp Pulse Pulse Resp BP BP Pulse Ox 05/23/23 08:29 98.2 F 76 16 99/62 L 93 05/23/23 06:01 72 05/23/23 04:07 98.4 F 76 18 103/65 94 05/22/23 22:00 80 05/22/23 22:00 98.2 F 76 18 129/77 97 O2 Del Method 05/23/23 08:29 Room Air 05/23/23 06:01 05/23/23 04:07 Room Air 05/22/23 22:00 05/22/23 22:00 Nasal Cannula PG Care Time/CCT Total # of Minutes Spent Total Time Spent with Patient: Total time spent is greater than 50% in coordination of care (as documented) at patient's floor/unit and/or counseling patient: Coding Level of Care Code 90543 SUB INP/OBS CARE 05/23MIN Diagnoses Colitis K52.9
--- NOTE | 2023-05-23 09:45 | Surgery Progress Note ---
Date of Service May 23, 2023 Assessment & Plan (1) Colitis: Plan: wbc up to 19,000 and Hg dropped approx 1 gram however clinically looks good. stable. abd pain/tenderness improved. results of CTA reviewed. no urgent indication for surgery ok from my standpoint for him to have clears will continue to follow along. (2) Rectal bleeding: (3) Small cell lung cancer: Admission and Anticipated Discharge Date Admission Date: May 22, 2023 Subjective pt seen. has had several more bloody bm's however the most recent one was brown. has cramping at times but the actual abdominal pain has improved. Physical Exam Constitutional: WD/WN, vitals as above no acute distress and not ill appearing Eyes: PERRL, conjunctivae normal, anicteric sclerae EOM intact bilaterally ENMT: external ear and nose normal, oropharynx normal Ears: no hearing impairment Neck: trachea midline, no thyromegaly Respiratory: normal respiratory effort; no respiratory distress and does not use accessory muscles Cardiovascular: Rate/Rhythm: regular rate and regular rhythm Gastrointestinal (Abdomen): soft. minimal LLQ ttp. improved from yesterday. no g/r/r Skin: no rashes, warm and dry Psychiatric: Orientation: alert, oriented x 3 and cooperative Results & Data Vital Signs (Past 12 Hours) Vital Signs Temp Pulse Pulse Resp BP BP Pulse Ox 05/23/23 08:29 36.8 C 76 16 99/62 L 93 05/23/23 06:01 72 05/23/23 04:07 36.9 C 76 18 103/65 94 05/22/23 22:00 80 05/22/23 22:00 36.8 C 76 18 129/77 97 O2 Del Method 05/23/23 08:29 Room Air 05/23/23 06:01 05/23/23 04:07 Room Air 05/22/23 22:00 05/22/23 22:00 Nasal Cannula PG Care Time/CCT Total # of Minutes Spent Total Time Spent with Patient: Total time spent is greater than 50% in coordination of care (as documented) at patient's floor/unit and/or counseling patient: Coding Level of Care Code 43576 SUB INP/OBS CARE 2/35MIN Diagnoses Colitis K52.9 Rectal bleeding K62.5 Small cell lung cancer C34.90
[2023-05-23 10:35] LABS: Dohle Bodies 2+
--- NOTE | 2023-05-23 15:00 | Hospitalist Progress Note ---
Date of Service May 23, 2023 Assessment & Plan (1) Rectal bleeding: Plan: He appears to have left-sided hemorrhagic colitis. CTAP reveals a patent mesenteric artery. Clinically he does not have ischemic bowel. Appreciate GI consultation and recommendations. Appreciate surgery consultation and recommendations. He currently is on intravenous Cipro and Flagyl along with a clear liquid diet. C. difficile toxin assay is pending. White blood cell count is moderately elevated. Probably related to recent Neulasta. Will follow. (2) PSVT (paroxysmal supraventricular tachycardia): Plan: Stable. Currently in NSR. Not on anticoagulation due to no brain mets . Continue metoprolol and flecainide (3) COPD with emphysema: Plan: Stable. 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 S/P lubrinectedin infusion on 05/16. Also received Neulasta infusion on 05/16. Likely cause of leukocytosis. Continue to follow with Oncology (5) Central line clotted: Plan: Patient notes that his mediport is getting recurrent clogs. Receiving intermittent Alteplase infusions. Plan Hopeful discharge to home soon Admission and Anticipated Discharge Date Admission Date: May 22, 2023 Subjective Alert and oriented. No distress. Hemoglobin is down slightly to 11.9 which could be dilutional and related to administered IV fluids. He remains on Cipro and Flagyl. GI consultation noted. Abdomen CTA reveals patent mesenteric artery. I doubt this represents ischemic colitis. Clinically, he just looks too good and he is only 72 years old. Stool BioFire negative but there are many potential causes for bloody diarrhea that are not evaluated in the BioFire. C. difficile toxin assay ordered and pending. He is now on clear liquids. He remains on intravenous Cipro and Flagyl. Continue IV fluids for now. Review of Systems Review of Systems: Constitutional-no fever or chills ENT-no blurred vision, no double vision, no epistaxis, no sore throat Respiratory-no cough, no wheezing, no shortness of breath Cardiac-no palpitations, no chest pain, no syncope GI-no nausea, vomiting. Intermittent crampy abdominal pain and bloody diarrhea. No prodrome of melena or hematochezia -no urinary retention, no urinary incontinence, no dysuria, no hematuria Musculoskeletal-no joint pain, no muscle tenderness Skin-no bruising, no rashes, no pruritus Neuro-no isolated weakness, no paresthesia Psych-no depression, no anxiety Physical Exam Physical Exam: General-alert and oriented x3, no fevers, no chills HEENT-head atraumatic and normocephalic, TMs intact bilaterally, pupils equal and reactive to light, extraocular muscles intact Neck-no lymphadenopathy or thyromegaly, trachea midline Chest-clear to auscultation percussion. No rales wheezing or rhonchi Cardiac-regular rate and rhythm, normal S1 and S2, no murmurs Abdomen-normal bowel sounds, nontender, no hepatosplenomegaly Extremities-no cyanosis, clubbing, or edema Neuro-cranial nerves II through XII intact, motor and sensory function within normal limits, strength symmetrical 5/5, no focal deficits Psych-normal affect, normal mood Results & Data Results & Data Vital Signs (Past 12 Hours) Vital Signs Temp Pulse Pulse Resp BP Pulse Ox O2 Del Method 05/23/23 08:29 36.8 C 76 16 99/62 L 93 Room Air 05/23/23 06:01 72 05/23/23 04:07 36.9 C 76 18 103/65 94 Room Air PG Care Time/CCT Total # of Minutes Spent Total Time Spent with Patient: Total time spent is greater than 50% in coordination of care (as documented) at patient's floor/unit and/or counseling patient: Coding Level of Care Code 08474 SUB INP/OBS CARE 3/50MIN Diagnoses Rectal bleeding K62.5 PSVT (paroxysmal supraventricular tachycardia) I47.1 COPD with emphysema J43.9 Small cell lung cancer C34.90 Central line clotted T82.594A
[2023-05-23] MEDS: PRAVASTATIN SOD 40 MG TAB PO SCH (20:52)
[2023-05-24] MEDS: CIPROFLOXACIN / D5W 400 MG/200 ML BAG IV SCH (00:13)
[2023-05-24] MEDS: metroNIDAZOLE 500 MG/100 ML BAG IV SCH (05:34)
[2023-05-24 07:28] LABS: Basophils # (auto) 0.11 K/uL (0.00-0.20); Basophils % (auto) 0.6 %; Eosinophils # (auto) 0.36 K/uL (0.00-0.50); Eosinophils % (auto) 2.1 %; Hematocrit (blood only) 34.3 % (42.0-52.0); Hemoglobin 11.7 g/dl (14.0-18.0); Immature Granulocytes # (auto) 0.28 K/uL (0.01-0.20); Immature Granulocytes % (auto) 1.6 %; Lymphocytes # (auto) 1.81 K/uL (1.20-3.40); Lymphocytes % (auto) 10.4 %; Mean Corpuscular Hemoglobin 32.2 pg (25.0-34.0); Mean Corpuscular Hgb Conc 34.1 g/dL (32.0-36.0); Mean Corpuscular Volume 94.5 fL (80.0-100.0); Monocytes # (auto) 1.22 K/uL (0.11-0.59); Neutrophils # (auto) 13.55 K/uL (1.40-6.50); Neutrophils % (auto) 78.3 %; Platelet Count 217 K/uL (130-400); RDW Coefficient of Variation 13.9 % (11.5-14.5); RDW Standard Deviation 48.2 fL (36.4-46.3); Red Blood Count 3.63 M/uL (4.70-6.10); White Blood Count 17.33 K/ul (4.8-10.8)
--- NOTE | 2023-05-24 07:57 | Surgery Progress Note ---
Date of Service May 24, 2023 Assessment & Plan (1) Rectal bleeding: Plan: Pt admitted with rectal bleeding, CT scan concerning for colitis, ?of ischemic colitis given distribution cdiff and other stool studies are negative Labs today show WBC 17(19), Hbg stable at 11 from yesterday. HR 60-70s, SBPs ranging from 90-110's since admit Abdomen is soft, non tender BMs have become more brown and less frequent tolerating clears, will consider bumping up diet today as above. doing well. angie reg diet ok from my standpoint for d/c Dr. Queen covering weekend if any issues Admission and Anticipated Discharge Date Admission Date: May 22, 2023 Subjective Patient feels well, says every day he is getting a bit better. This AM denies any pain/cramping/nausea/vomiting. Reports his BMs are still diarrhea, but are brown and becoming less frequent. He is tolerating clears, requesting diet advancement. Physical Exam Physical Exam: awake/alert, no distress Respiratory: normal respiratory effort Gastrointestinal (Abdomen): Inspection/Auscultation: abdomen not distended Percussion/Palpation: abdomen soft; abdomen nontender and no guarding Results & Data Vital Signs (Past 12 Hours) Vital Signs Temp Pulse Resp BP BP Pulse Ox O2 Del Method 05/24/23 03:00 36.8 C 67 18 90/58 L 95 Room Air 05/23/23 23:16 37 C 75 18 87/41 L 94 Room Air PG Care Time/CCT Total # of Minutes Spent Total Time Spent with Patient: Total time spent is greater than 50% in coordination of care (as documented) at patient's floor/unit and/or counseling patient: Coding Level of Care Code 06502 SUB INP/OBS CARE 05/23MIN Diagnoses Rectal bleeding K62.5
[2023-05-24 07:59] LABS: Albumin Globulin Ratio 1.8 (0.9-2); Albumin Level 3.4 gm/dl (3.4-5.0); Bilirubin,Total 0.3 mg/dl (0.2-1.0); Calcium 8.2 mg/dl (8.6-10.3); Creatinine Clr Calc Pharmacy 72.2 ml/min; Est GFR (African American) 87.4 ml/min; Est GFR (Non-African American) 75.4 ml/min; Globulin 1.9 gm/dl (2.5-4.0); Magnesium 2.1 mg/dl (1.7-2.4); Potassium 3.8 mmol/L (3.5-5.1); Total Protein 5.3 gm/dl (6.0-8.3)
[2023-05-24 08:32] LABS: INR 1.1 (0.9-1.1); Prothrombin Time 12.3 Seconds (9.0-12.0)
--- NOTE | 2023-05-24 08:39 | Hospitalist Progress Note ---
Date of Service May 24, 2023 Assessment & Plan (1) Rectal bleeding: Plan: He appears to have left-sided hemorrhagic colitis. CTAP reveals a patent mesenteric artery. Clinically he does not have ischemic bowel. Appreciate GI consultation and recommendations. Appreciate surgery consultation and recommendations. He currently is on intravenous Cipro and Flagyl along with a clear liquid diet. C. difficile toxin assay is negative White blood cell count is moderately elevated. Probably related to recent Neulasta. Will follow. (2) PSVT (paroxysmal supraventricular tachycardia): Plan: Stable. Currently in NSR. Not on anticoagulation due to no brain mets . Continue metoprolol and flecainide (3) COPD with emphysema: Plan: Stable. 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 S/P lubrinectedin infusion on 05/16. Also received Neulasta infusion on 05/16. Likely cause of leukocytosis. Continue to follow with Oncology (5) Central line clotted: Plan: Patient notes that his mediport is getting recurrent clogs. Receiving intermittent Alteplase infusions. Plan Hopeful discharge to home soon Admission and Anticipated Discharge Date Admission Date: May 22, 2023 Results & Data Results & Data Vital Signs (Past 12 Hours) Vital Signs Temp Pulse Resp BP BP Pulse Ox O2 Del Method 05/24/23 03:00 98.2 F 67 18 90/58 L 95 Room Air 05/23/23 23:16 98.6 F 75 18 87/41 L 94 Room Air PG Care Time/CCT Total # of Minutes Spent Total Time Spent with Patient: Total time spent is greater than 50% in coordination of care (as documented) at patient's floor/unit and/or counseling patient: Coding Diagnoses Rectal bleeding K62.5 PSVT (paroxysmal supraventricular tachycardia) I47.1 COPD with emphysema J43.9 Small cell lung cancer C34.90 Central line clotted T82.594A
[2023-05-24 08:49] VITALS: RESP 17; TEMP 98.1
[2023-05-24] MEDS: FLECAINIDE ACETATE 100 MG TABLET PO SCH (09:03)
[2023-05-24] MEDS: METOPROLOL TARTRATE 50 MG TAB PO SCH (09:03)
[2023-05-24 11:54] VITALS: O2SAT 95
[2023-05-24] MEDS: SODIUM CHLORIDE 0.9% 1,000 ML IV SCH (12:57)
[2023-05-24 16:02] VITALS: BP 87/41; PULSE 71
--- NOTE | 2023-05-24 18:43 | Discharge Summary ---
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 In the ED he was noted to have a BP of 103/54 but was otherwise stable. Labs were significant for a leukocytosis of 15 with neutrophil predominance of 11, stable Hgb of 13.2, Cr and BUN WNL, alk phos of 128. Chest xray was read as "1. No acute processes of the chest. 2. Left suprahilar lesion is better seen on the prior chest CT. 3. Emphysema.". CT of the abd/pelvis w/con was read as "1. Interval development of moderate circumferential wall thickening of the descending and proximal sigmoid colon with mild pericolonic stranding and a small amount of fluid. The findings represent a colitis. Although nonspecific, this distribution raises the possibility of ischemic colitis. No free air. No abscess. 2. Findings suggestive of mixed treatment response within multiple bilateral adrenal metastases, as described above. The previously described adrenal metastases have slightly decreased in size while nodular thickening within portions of the adrenal glands has developed. These can be assessed on follow-up CT. 3. No additional sites of metastatic disease within the abdomen or pelvis.". Prior to admission the patient was given 500 mL NSS. At the time of the exam the patient was sitting in bed in no acute distress. He states that he had been deal with multiple days of constipation when he developed central abdominal pain and had a large episode of non-bloody diarrhea yesterday. Following this episode, he had approximately 6 episodes of eric bloody per the rectum with bowel movements. When asked, he states that he will develop the central abdominal pain prior to the episodes, this pain is mainly relieved after having a bowel movements. He denies recent fever, chills, cough, SOB, vomiting, dysuria, hematuria, melena, LE swelling, and recent trauma. When asked, he states that he is no longer on anticoagulation with his afib due to his known brain mets. He was previously on steroids for the brain mets but has not been on a course recently. His last infusion of chemotherapy was on 05/16/23. He had a dose of Neulasta after chemotherapy on 05/16 as well. At rest he has little to no abdominal pain at this time. He did take his am medications which includes a baby aspirin. He is a DNR/DNI. -Last colonoscopy was approximately 3 years ago, states he did not have abnormalities Please refer to Dr. 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 Lung cancer. COMPARISON STUDY: PET/CT September 05, 2022. CT of the abdomen and pelvis February 282022. TECHNIQUE: Following IV administration of 82 mL of Optiray, axial images of the abdomen and pelvis were obtained from the lung bases to the proximal femurs. Images were reviewed in the axial, sagittal, and coronal planes. IV contrast was administered without complication. Automated exposure control was utilized for the study. A dose lowering technique was utilized adhering to the principles of ALARA. CT DOSE: 1317.92 mGy.cm FINDINGS: Lung bases are unremarkable. No pneumatosis, free air or portal venous gas is present. A few subcentimeter hypodense hepatic lesions are unchanged since initial CT. These are benign. No new hepatic lesions are present. The spleen and pancreas are unremarkable. There is no biliary or pancreatic ductal dilatation. There is no peripancreatic or pericholecystic infiltration. Kidneys are normal. There is no hydronephrosis. Bilateral adrenal lesions are again noted. A 2.7 x 1.3 cm hypodense lesion within the superior aspect of the right adrenal gland has slightly decreased in size since prior CT when it measured 2.8 x 1.5 cm. However, nodular enhancement within the inferior right adrenal gland, measuring 2.5 x 1.2 cm has developed. A lesion within the lateral limb of the left adrenal gland on image 96 has slightly decreased in size, measuring 2.1 x 1 cm. It previously measured 2.5 x 1 cm. However, a lesion within the medial limb of the left adrenal gland on image 86 has slightly increased in size, measuring 1.4 x 1.2 cm, previously 1.2 x 1 cm. There is extensive aortoiliac atherosclerotic plaque. The proximal mesenteric vessels are patent. No evidence for a bowel obstruction. There has been interval development of moderate circumferential wall thickening of the descending colon and proximal sigmoid colon since prior CT. There is mild pericolonic infiltration and a small amount of fluid within the pelvis. No abscess is present. No abdominal or pelvic lymphadenopathy is present. IMPRESSION: 1. Interval development of moderate circumferential wall thickening of the descending and proximal sigmoid colon with mild pericolonic stranding and a small amount of fluid. The findings represent a colitis. Although nonspecific, this distribution raises the possibility of ischemic colitis. No free air. No abscess. 2. Findings suggestive of mixed treatment response within multiple bilateral adrenal metastases, as described above. The previously described adrenal metastases have slightly decreased in size while nodular thickening within portions of the adrenal glands has developed. These can be assessed on follow-up CT. 3. No additional sites of metastatic disease within the abdomen or pelvis. ACT 112: Negative or not required by law. Electronically signed by: Stan Link M.D. 05/22/2023 10:37 AM Chest X-Ray 05/22/23 07:40 XR chest 1V portable HISTORY: 72 years-old Male weakness acute weakness COMPARISON: Chest CT 03/25/2023 TECHNIQUE: AP view of the chest FINDINGS: Cardiac silhouette is within normal limits. Left suprahilar opacity is again noted and better seen on the prior CT study. Pulmonary emphysema.. No pneumothorax, pleural effusion or airspace consolidation. Left subclavian [id number] catheter. Bones appear grossly intact. Healed chronic right-sided rib fractures. IMPRESSION: 1. No acute processes of the chest. 2. Left suprahilar lesion is better seen on the prior chest CT. 3. Emphysema. ACT 112: Negative or not required by law. The above report was generated using voice recognition software. It may contain grammatical, syntax or spelling errors. Electronically signed by: Ashwin Dennis M.D. 05/22/2023 8:26 AM Abdomen/Pelvis CTA 05/22/23 12:44 CT angio abd pelvis wo/w con CLINICAL HISTORY: Ischemic colitis. COMPARISON STUDY: CT of the abdomen and pelvis March 25, [address] performed earlier today. TECHNIQUE: Unenhanced and arterial phase imaging of the abdomen and pelvis was performed. Intravenous injection of 118 cc of Optiray 320 IV was uneventful. Sagittal and coronal reconstructions were viewed as well as maximal intensity projections on an independent 3-D workstation. Automated exposure control was utilized for the study. A dose lowering technique was utilized adhering to the principles of ALARA. FINDINGS: No pneumatosis, free air or portal venous gas is present. A few subcentimeter hepatic lesions are benign. Spleen, kidneys and pancreas are unremarkable. There is no hydronephrosis. Bilateral adrenal lesions are described on CT performed earlier today. Please see that report. Note is again made of moderate circumferential wall thickening of the descending colon and proximal sigmoid colon with mild pericolonic stranding in a small amount of fluid. There is extensive atherosclerotic plaque within the abdominal aorta. The caliber of the abdominal aorta is normal. The celiac axis, superior mesenteric artery, inferior mesenteric artery and renal arteries are patent. No arterial occlusion is identified. There is no aneurysm within the abdomen or pelvis. There is severe stenosis at the origin of the right internal iliac artery. An additional site of severe stenosis within the right internal iliac artery is noted. IMPRESSION: 1. Patent mesenteric vessels. Extensive aortoiliac atherosclerotic plaque. 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 2. Left-sided colitis, as described above. Although nonspecific, the distribution favors ischemic colitis. 3. Bilateral adrenal lesions, further described on CT performed earlier today. ACT 112: Negative or not required by law. Electronically signed by: Stan Link M.D. 05/22/2023 2:13 PM Hospital Course (1) Rectal bleeding: He appears to have left-sided hemorrhagic colitis. CTAP reveals a patent mesenteric artery. Painful right red blood per rectum as a consideration for ischemic bowel. Appreciate GI consultation and recommendations. Appreciate surgery consultation and recommendations. He currently is on intravenous Cipro and Flagyl will be continued on these as an outpatient C. difficile toxin assay is negative White blood cell count is moderately elevated. Probably related to recent Neulasta. Patient recommended to follow-up with gastroenterology as an outpatient. (2) PSVT (paroxysmal supraventricular tachycardia): Stable. Currently in NSR. Not on anticoagulation due to no brain mets (suggestion of previous microhemorrhages associated with them due to hemosiderin deposit). Continue metoprolol and flecainide (3) COPD with emphysema: Stable. Continue current medical management (4) Small cell lung cancer: With mets to the brain and adrenal glands . S/P lubrinectedin infusion on 05/16. Also received Neulasta infusion on 05/16. Likely cause of leukocytosis. Continue to follow with Oncology (5) Central line clotted: Plan was the axis at time of discharge did require alteplase to try to open the line while in the hospital Plan Hopeful discharge to home soon Total Time Total Time Spent Total Time Spent (In Minutes): It required greater than 30 minutes to prepare this patient for discharge. Discharge Plan Discharge Items Patient Disposition: Home - Self-Care Reason For Visit: RECTAL BLEEDING Discharge Diagnosis: rectal bleeding acute blood anemia Condition on Discharge: Fair Activity: Resume your previous activity Non-emergency contact: Primary Care Provider and Intellectual Property Paralegal Call non-emergency contact if: your symptoms worsen Follow-up/Referrals: Donaldo Moore MD [Physician] - 06/21/23 9:15 am (You are scheduled for an MRI @ [facility] on 06/20/2023 07:15. Radiation Oncology appt: 06/21/2023 09:15.) Jessica Gomes MD [Primary Care Provider] - Ross Laurent MD [Physician] - Diet: Regular Addtl Attending Provider Instructions: complete antibiotics return if recurrence or abdominal pain follow up with gi medicine Pending Studies at Discharge: No Studies:: MRI @ [facility] [address] 06/20/2023 07:15 Stand-Alone Forms: My CONWEAVER, Smoking Cessation Medications and DC Order Prescriptions: New ciprofloxacin HCl [Cipro] 500 mg tablet 500 mg PO BID Qty: 10 0RF metronidazole 500 mg tablet 500 mg PO BID Qty: 10 0RF Continued ondansetron HCl 8 mg tablet 8 mg PO Q8H PRN (Reason: Nausea And Vomiting) prochlorperazine maleate [Compazine] 10 mg tablet 10 mg PO Q6H PRN (Reason: Nausea And Vomiting) flecainide 100 mg tablet 100 mg PO Q12H Qty: 180 3RF tramadol 50 mg tablet 50 mg PO Q6H PRN (Reason: Pain) Qty: 60 5RF pravastatin 40 mg tablet 40 mg PO QPM Qty: 90 1RF docusate sodium [Colace] 100 mg capsule 100 mg PO BID albuterol sulfate 90 mcg/actuation HFA aerosol inhaler 2 puff inhalation Q6H PRN (Reason: Shortness Of Breath Or Wheezing) Qty: 18 3RF metoprolol tartrate 50 mg tablet 50 mg PO BID Qty: 180 3RF multivitamin Tablet 1 tab PO QAM fluticasone propionate [Allergy Relief (fluticasone)] 50 mcg/actuation spray,suspension 1 spray intranasal UD PRN (Reason: SINUS CONGESTION) Rx Instructions: administer into each nostril once daily polyethylene glycol 3350 [Miralax] 17 gram Powder In Packet 17 g PO DAILY PRN (Reason: Constipation) Held aspirin 81 mg tablet,delayed release (DR/EC) 81 mg PO DAILY Qty: 30 3RF Hold Instructions: Resume on 05/29/23. Patient Comments: TAKES IN AM Discharge Orders: Discharge Order (Routine); Ordered 05/24/23 Ordered By: Tomasz Mccall Admission Data Admit Date/Time: 05/22/23 11:25 Attending Provider: Tomasz Mccall Admit Provider: Damian Mcgee Primary Care Provider: Jessica Gomes Other Providers: Damian Mcgee; Ross Laurent; Koby Ivey Other Interventions: Discharge Summary Assessment (RN) Last Done: 05/24/23 16:01 Coding Level of Care Code 01320 INP/OBS DISCH >30 MIN Diagnoses Rectal bleeding K62.5 PSVT (paroxysmal supraventricular tachycardia) I47.1 COPD with emphysema J43.9 Small cell lung cancer C34.90 Central line clotted T82.594A
== END 2023-05-24 16:36 | disposition home or self-care (01) | DRG 394 ==
LOC: ED 07:32 → EDINP 11:25 → SUATTDRO 11:25 → 2N 21:25
DX: T82.868A Thrombosis due to vascular prosthetic devices, implants and grafts, initial encounter; C78.6 Secondary malignant neoplasm of retroperitoneum and peritoneum; C79.31 Secondary malignant neoplasm of brain; C79.71 Secondary malignant neoplasm of right adrenal gland; J43.9 Emphysema, unspecified; K52.9 Noninfective gastroenteritis and colitis, unspecified; Z95.828 Presence of other vascular implants and grafts; K55.9 Vascular disorder of intestine, unspecified; Y81.2 Prosthetic and other implants, materials and accessory general- and plastic-surgery devices associated with adverse incidents; C34.90 Malignant neoplasm of unspecified part of unspecified bronchus or lung; F17.210 Nicotine dependence, cigarettes, uncomplicated; C79.72 Secondary malignant neoplasm of left adrenal gland; Y92.009 Unspecified place in unspecified non-institutional (private) residence as the place of occurrence of the external cause; I47.20 Ventricular tachycardia, unspecified